=== PATIENT | female | born 1940 | race Caucasian/White ===

== ENCOUNTER 2017-12-22 21:10 | Emergency (ER) | payer MEDICARE ==
[2017-12-22 21:51] LABS: #Basophils 0.1 thou/uL (0.0-0.2); #Eosinphils 0.2 thou/uL (0.0-0.7); #Lymphocytes 2.5 thou/uL (1.20-3.40); #Monocytes 0.7 thou/uL (0.11-0.59); #Neutrophils 2.6 thou/uL (1.40-6.50); %Basophils 1.2 % (0.0-1.0); %Eosinophils 3.2 % (0.0-10.0); %Lymphocytes 41.4 % (21.0-51.0); %Monocytes 11.4 % (0.0-10.0); %Neutrophils 42.8 % (42.0-75.0); Hemoglobin 12.7 g/dL (12.0-16.0); Mean Corpuscular HGB CONC 31.6 g/dL (32.0-36.0); Mean Corpuscular Hemoglobin 26.9 pg (27.0-31.0); Mean Corpuscular Volume 85.1 fL (78.0-98.0); Mean Platelet Volume 9.9 fL (7.4-10.4); Platelet Count 179 thou/uL (130-400); RBC Distribution Width 13.7 % (11.5-14.5); Red Blood Cell (RBC) Count 4.74 mill/uL (4.20-5.40); White Blood Cell (WBC) Count 6.1 thou/uL (4.8-10.8)
[2017-12-22] MEDS ORDERED: predniSONE 20 MG TAB ONE (22:08)
[2017-12-22 22:09] LABS: ALT (SGPT) 12 U/L (8-55); AST (SGOT) 20 U/L (5-34); Alkaline Phosphatase 59 U/L (40-150); Anion Gap 12 mmol/L (10-20); BUN (Urea Nitrogen) 14 mg/dL (9.8-20.1); Bilirubin, Total 0.4 mg/dL (0.2-1.2); Calc. Creatinine Clearance 0 mL/min (70-130); Calcium 9.2 mg/dL (7.8-10.44); Carbon Dioxide 30 mmol/L (23-31); Chloride 99 mmol/L (98-107); Estimated GFR-MDRD 88; Globulin 2.8 g/dL (2.4-3.5); Glucose 96 mg/dL (83-110); Potassium 4.2 mmol/L (3.5-5.1); Protein, Total 6.8 g/dL (6.0-8.3); Sodium 137 mmol/L (136-145)
--- NOTE | 2017-12-22 22:09 | RAD ---
PORTABLE AP CHEST X-RAY 12/22/17 HISTORY: Dyspnea with onset of symptoms a few days ago. Worse tonight. COMPARISON: 06/22/16. FINDINGS: The cardiac silhouette and pulmonary vasculature are within normal limits. The lungs are hyperexpande d without mild chronic lung changes seen. No consolidation or pleural fluid is seen. Vascular calcifi cations seen in the thoracic aorta. Osteopenia is present. The interstitial opacities at each lung ba se on the prior exam have resolved. There is right convexed rotoscoliosis of the thoracolumbar spine. IMPRESSION: 1. No acute cardiopulmonary process 2. Stable hyperexpansion of the lungs with mild chronic lung changes. 3. Right convexed scoliosis thoracolumbar spine. POS: [facility]
[2017-12-22 22:13] LABS: CKMB 3.5 ng/mL (0-6.6); Troponin I Less than 0.010 ng/mL (< 0.028)
== END 2017-12-23 00:25 | disposition home or self-care (01) ==
LOC: ERS 21:10
DX: J44.1 Chronic obstructive pulmonary disease with (acute) exacerbation (principal); Z87.891 Personal history of nicotine dependence; Z79.899 Other long term (current) drug therapy
CPT/HCPCS: 71045; 80053; 82553; 83880; 84484; 85025; 93005; 94760; J7506; J7620

== ENCOUNTER 2018-03-08 10:42 | Outpatient (CLI) | payer MEDICARE ==
--- NOTE | 2018-03-08 11:52 | BD ---
BONE DENSITOMETRY USING DEXA: Date: 03/08/18 HISTORY: Postmenopausal screening for osteoporosis. FINDINGS: Lumbar Spine: BMD (g/cm2) L1 0.620 T-Score: -3.4 Z-Score: -1.0 L2 0.759 T-Score: -2.4 Z-Score: 0.2 L3 0.724 T-Score: -3.3 Z-Score: -0.5 L4 0.713 T-Score: -3.2 Z-Score: -0.3 L1-L4 0.705 T-Score: -3.1 Z-Score: -0.5 Femoral Neck: 0.474 T-Score: -3.4 Z-Score: -1.1 Total Femur: 0.551 T-Score: -3.2 Z-Score: -1.2 There has been interval reduction of 3.5% in the bone mineral density of the lumbar spine and a reduc tion of 13.8% in the bone mineral density of the proximal femur since 04/17/08. IMPRESSION: Osteoporosis. POS: [facility]
== END 2018-03-08 10:43 | disposition home or self-care (01) ==
LOC: BICMAMMO 10:42
PROVIDERS: ATTEND Family Medicine
DX: Z12.31 Encounter for screening mammogram for malignant neoplasm of breast (principal); M81.0 Age-related osteoporosis without current pathological fracture
CPT/HCPCS: 77063; 77067; 77080

== ENCOUNTER 2018-03-26 12:46 | Emergency (ER) | payer MEDICARE ==
[2018-03-26 13:19] LABS: #Lymphocytes 1.3 thou/uL (1.20-3.40); #Monocytes 0.3 thou/uL (0.11-0.59); #Neutrophils 10.6 thou/uL (1.40-6.50); %Basophils 0.4 % (0.0-1.0); %Eosinophils 0.2 % (0.0-10.0); %Lymphocytes 10.4 % (21.0-51.0); Hemoglobin 14.4 g/dL (12.0-16.0); Mean Corpuscular HGB CONC 32.1 g/dL (32.0-36.0); Mean Corpuscular Hemoglobin 27.8 pg (27.0-31.0); Mean Corpuscular Volume 86.5 fL (78.0-98.0); Mean Platelet Volume 9.1 fL (7.4-10.4); Platelet Count 236 thou/uL (130-400); RBC Distribution Width 14.3 % (11.5-14.5); Red Blood Cell (RBC) Count 5.18 mill/uL (4.20-5.40); White Blood Cell (WBC) Count 12.2 thou/uL (4.8-10.8)
--- NOTE | 2018-03-26 13:35 | RAD ---
CHEST 1 VIEW: HISTORY: Dyspnea, cough, and congestion. COMPARISON: Radiograph of 12/22/2017. FINDINGS: There is moderate dextroscoliosis of the thoracolumbar spine. There is some scarring and mass in the left lung apex. The lungs are hyperinflated. Cardiac silhouette and mediastinal contours are within normal limits. IMPRESSION: Spiculated mass-like density in the left lung apex. Followup CT of the chest is recommended. CODE T POS: [facility]
[2018-03-26 13:42] LABS: ALT (SGPT) 18 U/L (8-55); AST (SGOT) 18 U/L (5-34); Albumin 4.3 g/dL (3.4-4.8); Alkaline Phosphatase 55 U/L (40-150); Anion Gap 11 mmol/L (10-20); BUN (Urea Nitrogen) 13 mg/dL (9.8-20.1); Bilirubin, Total 0.5 mg/dL (0.2-1.2); CK (CPK) 52 U/L (29-168); Calc. Creatinine Clearance 0 mL/min (70-130); Calcium 9.5 mg/dL (7.8-10.44); Carbon Dioxide 29 mmol/L (23-31); Chloride 100 mmol/L (98-107); Estimated GFR-MDRD 88; Globulin 2.8 g/dL (2.4-3.5); Glucose 141 mg/dL (83-110); Potassium 4.2 mmol/L (3.5-5.1); Protein, Total 7.1 g/dL (6.0-8.3); Sodium 136 mmol/L (136-145)
[2018-03-26 13:45] LABS: CKMB 2.4 ng/mL (0-6.6); Troponin I Less than 0.010 ng/mL (< 0.028)
[2018-03-26] MEDS ORDERED: Ketorolac Tromethamine 30 MG/ML VIAL ONE (15:10)
== END 2018-03-26 15:55 | disposition home or self-care (01) ==
LOC: ERS 12:46
DX: J44.1 Chronic obstructive pulmonary disease with (acute) exacerbation (principal); Z87.891 Personal history of nicotine dependence; Z79.899 Other long term (current) drug therapy
CPT/HCPCS: 36415; 71045; 80053; 82550; 82553; 83880; 84484; 85025; 93005; 94640; 96374; J1885; J7620

== ENCOUNTER 2018-04-06 09:31 | Outpatient (CLI) | payer MEDICARE ==
--- NOTE | 2018-04-06 11:33 | RAD ---
FRONTAL AND LATERAL IMAGING OF THORACIC SPINE: Date: 04/06/18 COMPARISON: None. HISTORY: Mid back pain traveling up. FINDINGS: The lateral examination demonstrates no significant anterolisthesis or retrolisthesis within the thor acic spine. There is upper lumbar spine dextroscoliosis with multilevel disc space narrowing and degenerative end plate change of the upper lumbar spine to the left of midline. There is atherosclerotic calcification of the aortic arch. The thoracic pedicles appear intact on the frontal imaging. No evidence for acute thoracic spine frac ture is noted. Partially imaged degenerative change is seen within the cervical spine, including ante rolisthesis of C4 on C5 measuring approximately 4.0 mm. IMPRESSION: Multifocal degenerative change. No acute thoracic spine fracture. If there are radicular symptoms, MR I suggested. POS: [facility]
--- NOTE | 2018-04-06 12:22 | CT ---
CT OF CHEST PERFORMED WITH INTRAVENOUS CONTRAST ENHANCEMENT: HISTORY: Abnormal density seen in the left upper lobe on recent chest x-ray. COMPARISON: A CT examination of 02/06/2013. Multiple prior chest x-ray exams. FINDINGS: Lungs show severe emphysematous-type change. There is no infiltrative process. Within the left upper lobe corresponding to the chest x-ray abnormality is a slightly nodular density with either spiculation or scar. The main nodular component of this is only 7 mm in size. This is definitely a new finding as compared to the 2013 CT examination. There is no significant mediastinal or hilar adenopathy. Thoracic aorta is normal in caliber. Visualized liver parenchyma shows no focal finding. The right and left adrenal glands are within nor mal limits. Visualized portions of the kidneys are unremarkable. Review of osseous structures shows arthritic changes of the spine and scoliosis. IMPRESSION: 1. Slightly spiculated nodular density within the left upper lobe. This is either related to an are a of nodular scar or early carcinoma. It was not present on the 2013 CT examination. Further evalua tion with PET scan may be helpful. Due to the small size of the nodular component, I feel it may not be very amenable to percutaneous biopsy. 2. Severe emphysematous lung change. POS: [facility]
[2018-04-06] MEDS ORDERED: ISOVUE-370 76%-LOCM 1 ML ONE (13:30)
== END 2018-04-06 09:32 | disposition home or self-care (01) ==
LOC: BICCT 09:31
PROVIDERS: ATTEND Family Medicine
DX: M54.6 Pain in thoracic spine (principal); R91.8 Other nonspecific abnormal finding of lung field; M47.814 Spondylosis without myelopathy or radiculopathy, thoracic region; J98.4 Other disorders of lung
CPT/HCPCS: 71260; 72072

== ENCOUNTER 2018-06-10 16:52 | Emergency (ER) | payer MEDICARE ==
[2018-06-10 17:42] LABS: #Basophils 0.1 thou/uL (0.0-0.2); #Lymphocytes 1.6 thou/uL (1.20-3.40); #Monocytes 0.7 thou/uL (0.11-0.59); #Neutrophils 3.9 thou/uL (1.40-6.50); %Eosinophils 0.5 % (0.0-10.0); %Lymphocytes 25.3 % (21.0-51.0); %Monocytes 11.5 % (0.0-10.0); %Neutrophils 61.7 % (42.0-75.0); Hemoglobin 13.4 g/dL (12.0-16.0); Mean Corpuscular HGB CONC 31.9 g/dL (32.0-36.0); Mean Corpuscular Hemoglobin 28.2 pg (27.0-31.0); Mean Corpuscular Volume 88.5 fL (78.0-98.0); Mean Platelet Volume 9.9 fL (7.4-10.4); Platelet Count 193 thou/uL (130-400); RBC Distribution Width 13.3 % (11.5-14.5); Red Blood Cell (RBC) Count 4.73 mill/uL (4.20-5.40); White Blood Cell (WBC) Count 6.3 thou/uL (4.8-10.8)
[2018-06-10 18:03] LABS: ALT (SGPT) 13 U/L (8-55); AST (SGOT) 22 U/L (5-34); Albumin 4.2 g/dL (3.4-4.8); Alkaline Phosphatase 65 U/L (40-150); Anion Gap 14 mmol/L (10-20); BUN (Urea Nitrogen) 10 mg/dL (9.8-20.1); Bilirubin, Total 0.3 mg/dL (0.2-1.2); CK (CPK) 95 U/L (29-168); Calc. Creatinine Clearance 0 mL/min (70-130); Calcium 9.2 mg/dL (7.8-10.44); Carbon Dioxide 27 mmol/L (23-31); Chloride 103 mmol/L (98-107); Estimated GFR-MDRD Greater than 90; Globulin 2.6 g/dL (2.4-3.5); Glucose 118 mg/dL (83-110); Potassium 4.3 mmol/L (3.5-5.1); Protein, Total 6.8 g/dL (6.0-8.3); Sodium 140 mmol/L (136-145)
--- NOTE | 2018-06-10 18:31 | RAD ---
CHEST ONE VIEW: History: Shortness of breath. Comparison: 03-26-18 FINDINGS: Lungs are hyperinflated. Reversed S-shaped scoliosis thoracolumbar spine. No focal consolidation, pne umothorax, or effusion. Spiculated nodule in the left upper lobe is similar and may reflect scarring. IMPRESSION: 1. Obstructive pulmonary disease. 2. Spiculated nodule left upper lobe suggestive of scar, though follow up CT recommended in two month s. POS: [facility]
[2018-06-10] MEDS ORDERED: methylPREDNISolone Sod Succ/PF 125 MG/2 ML VIAL ONE (19:11)
== END 2018-06-10 19:40 | disposition home or self-care (01) ==
LOC: ERS 16:52
DX: J44.1 Chronic obstructive pulmonary disease with (acute) exacerbation (principal); Z87.891 Personal history of nicotine dependence; Z79.899 Other long term (current) drug therapy
CPT/HCPCS: 71045; 80053; 82550; 83880; 84484; 85025; 93005; 94640; 94760; C1776; 96374; J2930; J7620

== ENCOUNTER 2018-06-11 19:17 | Emergency (ER) | payer MEDICARE ==
[2018-06-11] MEDS ORDERED: Ketorolac Tromethamine 60 MG/2 ML VIAL ONE (22:28)
[2018-06-11] MEDS ORDERED: Lorazepam 2 MG/ML VIAL ONE (22:28)
== END 2018-06-11 22:55 | disposition home or self-care (01) ==
LOC: ERS 19:17
DX: S16.1XXA Strain of muscle, fascia and tendon at neck level, initial encounter (principal); J44.9 Chronic obstructive pulmonary disease, unspecified; Z87.891 Personal history of nicotine dependence; Z79.51 Long term (current) use of inhaled steroids; Z79.899 Other long term (current) drug therapy; X58.XXXA Exposure to other specified factors, initial encounter
CPT/HCPCS: 96372; J1885; J2060

== ENCOUNTER 2018-06-21 13:26 | Outpatient (CLI) | payer MEDICARE ==
[2018-06-21 14:59] LABS: Analyzer IN Cardio OR; Base Excess (BEa) 6.8 mEq/L (-2.0 to +3.0); CO2 Tension 47.9 mmHg (35.0-45.0); Calcium, Ionized 1.16 mmol/L (1.12-1.30); Carboxyhemoglobin (COHb) 0.3 gm% (0.0-3.0); Hemoglobin (Hb) 13.9 g/dL (12.0-16.0); O2 Tension (PaO2) 63.6 mmHg (> 70.0); Potassium - ABG Lab 4.19 mmol/L (3.70-5.30); pH, Arterial 7.44 (7.35-7.45)
[2018-06-21 15:02] LABS: ALV-art Gradient 26.255 (0-20)
== END 2018-06-21 13:27 | disposition home or self-care (01) ==
LOC: CP 13:26
PROVIDERS: ATTEND Internal Medicine Critical Care Medicine
DX: J44.9 Chronic obstructive pulmonary disease, unspecified (principal)
CPT/HCPCS: 82805

== ENCOUNTER 2018-07-13 15:07 | Outpatient (CLI) | payer MEDICARE ==
--- NOTE | 2018-07-13 16:05 | RAD ---
LUMBAR SPINE FOUR VIEWS: HISTORY: Lumbar spondylosis. FINDINGS: Moderate to severe dextroscoliosis of the upper lumbar vertebral column. Multilevel disk osteophytos is and facet arthrosis. No significant abnormal translation between flexion and extension. Diffuse bony demineralization. IMPRESSION: 1. Dextroscoliosis, upper lumbar vertebral column. 2. Spondylosis with bony demineralization. 3. No abnormal translation between flexion and extension. POS: [facility]
== END 2018-07-13 15:08 | disposition home or self-care (01) ==
LOC: BICRAD 15:07
PROVIDERS: ATTEND Nurse Practitioner Family
DX: M47.816 Spondylosis without myelopathy or radiculopathy, lumbar region (principal); M41.9 Scoliosis, unspecified; M81.0 Age-related osteoporosis without current pathological fracture
CPT/HCPCS: 72110

== ENCOUNTER 2018-08-03 14:47 | Inpatient (IN) | payer MEDICARE ==
[2018-08-03] MEDS ORDERED: Midazolam HCl 2 mg/2 ml Vial ONE (14:55)
[2018-08-03] MEDS ORDERED: fentaNYL Citrate/PF 2,000 MCG in Sodium Chloride 0.9% 60 ML IV SCH (14:55)
[2018-08-03] MEDS ORDERED: Propofol 1,000 MG/100 ML VIAL IV ONE (14:55)
[2018-08-03 15:10] LABS: Bilirubin Negative (Negative); Blood, Urine Negative (Negative); Clarity CLEAR (Clear); Glucose, Urine (Dipstick) Negative (Negative); Leukocyte Negative (Negative); Nitrite Negative (Negative); Protein, Urine (Dipstick) Negative (Neg-Trace); Urobilinogen 0.2 mg/dL (0.2-1.0); pH, Urine 5.5 (5.0-9.0)
[2018-08-03 15:14] LABS: Actual Bicarbonate (HCO3a) 25.8 mEq/L (22-28); Analyzer IN Cardio ER; Base Excess (BEa) -0.1 mEq/L (-2.0 to +3.0); CO2 Tension 47.1 mmHg (35.0-45.0); Carboxyhemoglobin (COHb) 0.2 gm% (0.0-3.0); Hemoglobin (Hb) 12.5 g/dL (12.0-16.0); Potassium - ABG Lab 3.62 mmol/L (3.70-5.30); pH, Arterial 7.36 (7.35-7.45)
[2018-08-03 15:15] LABS: ALV-art Gradient -41.975 (0-20); Puncture Site RRA
--- NOTE | 2018-08-03 15:36 | RAD ---
SINGLE VIEW CHEST: Date: 08/03/18 COMPARISON: 06/10/18. HISTORY: Respiratory distress. Intubated. FINDINGS: Single view of the chest shows normal sized cardiomediastinal silhouette. There is an endotracheal tu be with its tip at the lower border of the clavicles. NG tube courses off the inferior aspect of the film. Right subclavian central venous catheter is seen with its tip in the superior vena cava. No pne umothorax is seen. Hyperexpansion of lungs may be secondary to COPD. No evidence of consolidation, ma ss, or pleural effusion. IMPRESSION: Appropriate position of lines and tubes. POS: [facility]
[2018-08-03 15:38] LABS: #Lymphocytes 2.7 thou/uL (1.20-3.40); #Monocytes 0.6 thou/uL (0.11-0.59); #Neutrophils 4.2 thou/uL (1.40-6.50); %Basophils 0.1 % (0.0-1.0); %Eosinophils 0.5 % (0.0-10.0); %Lymphocytes 36.4 % (21.0-51.0); %Monocytes 7.5 % (0.0-10.0); %Neutrophils 55.6 % (42.0-75.0); Mean Corpuscular HGB CONC 31.3 g/dL (32.0-36.0); Mean Corpuscular Hemoglobin 27.7 pg (27.0-31.0); Mean Corpuscular Volume 88.5 fL (78.0-98.0); Mean Platelet Volume 9.4 fL (7.4-10.4); Platelet Count 180 thou/uL (130-400); Red Blood Cell (RBC) Count 3.97 mill/uL (4.20-5.40); White Blood Cell (WBC) Count 7.5 thou/uL (4.8-10.8)
[2018-08-03 15:56] LABS: ALT (SGPT) 10 U/L (8-55); AST (SGOT) 15 U/L (5-34); Albumin 3.1 g/dL (3.4-4.8); Alkaline Phosphatase 44 U/L (40-150); Anion Gap 6 mmol/L (10-20); BUN (Urea Nitrogen) 11 mg/dL (9.8-20.1); Bilirubin, Total 0.3 mg/dL (0.2-1.2); CK (CPK) 50 U/L (29-168); Calc. Creatinine Clearance 0 mL/min (70-130); Carbon Dioxide 29 mmol/L (23-31); Chloride 103 mmol/L (98-107); Estimated GFR-MDRD Greater than 90; Globulin 1.7 g/dL (2.4-3.5); Glucose 110 mg/dL (83-110); Potassium 3.4 mmol/L (3.5-5.1); Protein, Total 4.8 g/dL (6.0-8.3); Sodium 135 mmol/L (136-145)
[2018-08-03] MEDS ORDERED: Norepinephrine 8 MG/0.9% NS 250 ML ONE (16:27)
[2018-08-03] MEDS ORDERED: Propofol BOLUS 1,000 MG/100 ML VIAL IV PRN ×2 (18:52→18:54)
[2018-08-03] MEDS ORDERED: Ondansetron PF 4 MG/2 ML Vial IVP PRN ×2 (18:53→19:57)
[2018-08-03] MEDS ORDERED: Ondansetron ODT 4 MG TAB SL PRN (18:53)
[2018-08-03] MEDS ORDERED: Sodium Chloride 0.9% 1,000 ML IV SCH ×2 (18:53→19:45)
[2018-08-03] MEDS ORDERED: Lorazepam 2 MG/ML VIAL SLOW IVP PRN (18:54)
[2018-08-03] MEDS ORDERED: DISCONTINUE PREVIOUS NARCOTIC PAIN MEDICATIONS AND BENZODIAZEPINES FS SCH (18:54)
[2018-08-03] MEDS ORDERED: Fentanyl BOLUS 250 ML IVPB PRN (18:54)
[2018-08-03] MEDS ORDERED: Morphine 2 MG/ML SYRINGE SLOW IVP PRN (18:54)
[2018-08-03] MEDS ORDERED: Propofol 1,000 MG/100 ML VIAL IV PRN (18:54)
[2018-08-03] MEDS ORDERED: Ondansetron ODT 4 MG TAB PO PRN (19:57)
[2018-08-03] MEDS ORDERED: Acetaminophen 650 MG Suppository PR PRN (19:57)
[2018-08-03] MEDS ORDERED: CCU Electrolyte Replacement 1 EACH FS ONE (20:11)
[2018-08-03] MEDS ORDERED: Potassium Phosphate 15 MMOL in Sodium Chloride 0.9% 250 ML 250 ML IV PRN (20:13)
[2018-08-03] MEDS ORDERED: CCU ELECTROLYTE REPLACEMENT PROTOCOL FS PRN (20:13)
[2018-08-03] MEDS ORDERED: Magnesium 2 GM/50 ML 2 GM in Premix Bag 1 BAG IVPB PRN (20:13)
[2018-08-03] MEDS ORDERED: Potassium Chloride 40 MEQ in Premix Bag 1 BAG IVPB PRN (20:13)
[2018-08-03] MEDS ORDERED: Potassium Phosphate 12 MMOL in Sodium Chloride 0.9% 250 ML 250 ML IV PRN (20:13)
[2018-08-03] MEDS ORDERED: Magnesium Oxide 400 MG TAB PO PRN ×2 (20:13)
[2018-08-03] MEDS ORDERED: PHOS-NAK 1 PKT PACK PO PRN ×2 (20:13)
[2018-08-03] MEDS ORDERED: Potassium Chloride 20 MEQ TAB PO PRN (20:13)
[2018-08-03] MEDS ORDERED: Potassium Phosphate 9 MMOL in Sodium Chloride 0.9% 100 ML IVPB PRN (20:13)
[2018-08-03] MEDS ORDERED: Potassium Chloride 40 MEQ in Sodium Chloride 0.9% 250 ML 250 ML IVPB PRN (20:13)
[2018-08-03] MEDS: Famotidine/PF 20 mg/2ml Vial SLOW IVP SCH (21:11)
[2018-08-03] MEDS: cefTRIAXone\\ROCEPHIN 2 GM in Sodium Chloride 0.9% 100 ML IVPB SCH (21:11)
[2018-08-03] MEDS: Sodium Chloride 0.9% 1,000 ML IV SCH (21:57)
--- NOTE | 2018-08-03 22:57 | HP ---
PRIMARY CARE PROVIDER: Dr. Talita Waterman. CHIEF COMPLAINT: Shortness of breath. HISTORY OF PRESENT ILLNESS: This is a 77-year-old female, who presents to [facility] Emergency Department in transfer with EMS personnel after complaining of increasing shortness of breath in the last 48 hours. The history is obtained after discussions with the ER attending as well as the patient's 3 daughters who are at the bedside. The patient currently on mechanical ventilation and unable to provide any history. The patient with known history of chronic obstructive pulmonary disease, on chronic oxygen supplementation at 2 L/minute by nasal cannula. The patient had complained of increasing fatigue and shortness of breath per the daughter's report with quick fatigability with doing home chores and small tasks at home. The daughters report that the patient does live independently but are nearby and a sister with shopping and medications. The daughters report the patient has never needed intubation or mechanical ventilation in the past. The daughters report no specific recent illness or change to her chronic medication regimen, but do states she was recently on steroid tapering by her primary care provider as early as mid June 2018. No specific history of recent fall, travel history, or exposure. In the emergency room, the patient was intubated per EMS personnel, however, was hypotensive initially and placed on Levophed infusion as well as given IV fluids. Chest imaging showed no acute infiltrate and the patient was treated for respiratory failure with mechanical ventilation and a suspected COPD exacerbation. PAST MEDICAL HISTORY: 1. Chronic obstructive pulmonary disease. 2. Chronic hypoxic respiratory failure, on oxygen supplementation at 2 L/minute by nasal cannula. 3. Remote tobacco use. PAST SURGICAL HISTORY: Status post hysterectomy. CURRENT MEDICATIONS: 1. ProAir HFA 2 puffs inhaled q.4 hours p.r.n. 2. Azithromycin 250 mg p.o. daily. 3. Ipratropium one inhalation nebulized q.4 hours p.r.n. ALLERGIES: TO LEVAQUIN. FAMILY HISTORY: Positive for diabetes mellitus type 2. SOCIAL HISTORY: The patient is , residing independently. Accompanied by her 3 daughters. Former tobacco use, quitting approximately 15 years prior to this evaluation. REVIEW OF SYSTEMS: Unobtainable as the patient on current mechanical ventilation. PHYSICAL EXAMINATION: VITAL SIGNS: On admission, blood pressure 152/79, pulse 98, respiratory rate 20, temperature 96.4 degrees Fahrenheit, O2 saturation is 100% on mechanical ventilation. GENERAL APPEARANCE: This is a 77-year-old female, on current mechanical ventilation sedate, in no acute distress. HEENT: Pupils are equal, round, reactive to light and accommodation. Extraocular muscles are intact. No scleral icterus. No conjunctival injection. Nares patent. OP with ET tube in place. Orogastric tube in place. NECK: Supple. No cervical adenopathy. No thyromegaly. No carotid bruits. No JVD noted. CHEST: Diminished breath sounds in the bases bilaterally. CARDIOVASCULAR: S1 and S2 with tachycardia. ABDOMEN: Flat, soft, nontender, and nondistended. Bowel sounds are positive in all 4 quadrants. There is no palpable mass. No rebound or guarding appreciated. EXTREMITIES: Warm and dry with fair turgor. No clubbing, cyanosis, or asymmetric edema appreciated. Pulses palpable distally at the dorsalis pedis, posterior tibial, and popliteal arteries bilaterally. Capillary refill less than 2 seconds. NEUROLOGIC: Currently sedate on mechanical ventilation with propofol. PERTINENT LABORATORY AND X-RAY FINDINGS: Sodium 135, potassium 3.4, chloride 103, CO2 of 29, BUN 11, creatinine 0.45, glucose 110, lactic acid level 0.7, calcium 8.0. LFTs within normal limits. Troponin I negative x1. BNP 22.5. Albumin 3.1. CBC showed a white blood cell count of 7.5, hemoglobin 11, hematocrit 35, platelet count 180, with normal differential. ABG dated 08/03/2018 at 1507 hours showed a pH 7.36, pCO2 of 47.1, pO2 of 197, bicarb 25.8, O2 saturation 99% on 30% FiO2. Urinalysis negative. Portable chest x-ray dated 08/03/2018 showed endotracheal tube with the tip of the lower borders of the clavicles. Orogastric tube noted. Right subclavian central venous catheter in place. EKG dated 08/03/2018 by my interpretation shows sinus mechanism with heart rates in the 70s. Normal R-wave progression noted in the precordial leads. Normal axis. No acute ST-T wave changes appreciated. ASSESSMENT AND PLAN: 1. Acute on chronic hypoxic respiratory failure. The patient will be admitted to the Critical Care unit. Suspect secondarily to #2. We will continue management as outlined in #2. Continue mechanical ventilation with SIMV and consult Pulmonary/Critical Care Service. 2. Acute chronic obstructive pulmonary disease exacerbation. Suspected presentation. We will continue mechanical ventilation with SIMV, titrating to clinical response. Current FiO2 of 30%. Repeat portable chest x-ray and ABG in the a.m. Continue Solu-Medrol 40 mg IV q.6 hours with additional Rocephin 2 g IV q.24 hours. Add DuoNeb q.4 hours. 3. Hypokalemia. We will add CCU electrolyte replacement protocol. Serial potassium monitoring. 4. Normocytic anemia. Questionable chronic versus subacute. We will repeat CBC in the a.m. No current evidence to suggest acute blood loss. MCV 89. 5. Prophylaxis. SCDs while in bed. Pepcid 20 mg IV q.12 hours. CCU electrolyte replacement protocol. Ventilator sedation protocol. 6. Code status is full. Surrogate medical decision maker is the patient's daughters. Job ID: [id number]
[2018-08-03] MEDS: methylPREDNISolone Sod Succ 40 MG VIAL IVP SCH (23:49)
[2018-08-04] MEDS: fentaNYL Citrate/PF 2,000 MCG in Sodium Chloride 0.9% 60 ML IV SCH (05:05)
[2018-08-04] MEDS: Sodium Chloride 0.9% 1,000 ML IV SCH ×2 (05:10→16:15)
[2018-08-04] MEDS: methylPREDNISolone Sod Succ 40 MG VIAL IVP SCH ×4 (05:26→23:50)
[2018-08-04 07:04] LABS: ALT (SGPT) 15 U/L (8-55); AST (SGOT) 15 U/L (5-34); Albumin 3.1 g/dL (3.4-4.8); Alkaline Phosphatase 44 U/L (40-150); Anion Gap 12 mmol/L (10-20); BUN (Urea Nitrogen) 14 mg/dL (9.8-20.1); Bilirubin, Total 0.4 mg/dL (0.2-1.2); Calc. Creatinine Clearance 59 mL/min (70-130); Carbon Dioxide 19 mmol/L (23-31); Chloride 107 mmol/L (98-107); Estimated GFR-MDRD Greater than 90; Globulin 1.9 g/dL (2.4-3.5); Glucose 131 mg/dL (83-110); Potassium 3.9 mmol/L (3.5-5.1); Sodium 134 mmol/L (136-145)
[2018-08-04 07:06] LABS: Mean Corpuscular HGB CONC 31.6 g/dL (32.0-36.0); Mean Corpuscular Volume 88.4 fL (78.0-98.0); Mean Platelet Volume 9.2 fL (7.4-10.4); Platelet Count 168 thou/uL (130-400); RBC Distribution Width 13.2 % (11.5-14.5); Red Blood Cell (RBC) Count 3.94 mill/uL (4.20-5.40); White Blood Cell (WBC) Count 7.6 thou/uL (4.8-10.8)
[2018-08-04 07:19] LABS: Actual Bicarbonate (HCO3a) 20.7 mEq/L (22-28); Base Excess (BEa) -4.3 mEq/L (-2.0 to +3.0); CO2 Tension 37.7 mmHg (35.0-45.0); Calcium, Ionized 1.19 mmol/L (1.12-1.30); Carboxyhemoglobin (COHb) 0.9 gm% (0.0-3.0); Hemoglobin (Hb) 11.9 g/dL (12.0-16.0); O2 Tension (PaO2) 70.7 mmHg (> 70.0); Potassium - ABG Lab 3.95 mmol/L (3.70-5.30); Puncture Site RRA; pH, Arterial 7.36 (7.35-7.45)
[2018-08-04 07:20] LABS: ALV-art Gradient 96.075 (0-20)
[2018-08-04 07:33] LABS: Lymphocytes 5 % (21-51); MDiff Complete? YES; Monocytes 4 % (0-10); Neutrophil 85 % (42-75); Platelet Morphology Comment Appears Adequate; Reactive Lymphocytes 6 % (0-10)
[2018-08-04] MEDS: Famotidine/PF 20 mg/2ml Vial SLOW IVP SCH ×2 (10:00→20:42)
--- NOTE | 2018-08-04 13:44 | PDOC.PN ---
- Subjective Encounter Start Date: 08/04/18 Encounter Start Time: 13:44 Subjective: Admitted with worsening SOB associated with weakness. -: Intubated in the ER. Had hypotension requiring levophed. -: currently off levophed. - Objective Resuscitation Status - Order Detail: 08/03/18 19:46 Resuscitation Status Routine Resuscitation Status: FULL: Full Resuscitation Vital Signs & Weight: Vital Signs (12 hours) Temp Pulse Resp BP Pulse Ox 08/04/18 12:42 78 08/04/18 10:44 86 101/57 L 08/04/18 10:00 16 08/04/18 09:33 96 08/04/18 08:00 97.6 F 16 100 08/04/18 07:54 77 108/59 L 08/04/18 06:00 16 08/04/18 04:00 99.7 F H 26 H 08/04/18 02:09 81 108/52 L 08/04/18 02:00 16 Weight Admit Weight 87 lb 11.84 oz Weight 88 lb 6.5 oz Most Recent Monitor Data Heart Rate from ECG 76 NIBP 112/63 NIBP BP-Mean 79 Respiration from ECG 16 SpO2 100 I&O: 08/03/18 08/04/18 08/05/18 06:59 06:59 06:59 Intake Total 3019.7 Output Total 550 80 Balance 2469.7 -80 Result Diagrams: 08/04/18 06:26 08/04/18 06:26 Phys Exam - Physical Examination sedated elderly female HEENT: moist MMs OG and ET tubes in place. Neck: supple ventilator transmitted sound noted. Cardiovascular: RRR, no significant murmur Gastrointestinal: soft, no distention, positive bowel sounds Musculoskeletal: no edema sedated. Dx/Plan (1) Acute on chronic respiratory failure with hypoxemia Code(s): J96.21 - ACUTE AND CHRONIC RESPIRATORY FAILURE WITH HYPOXIA Status: Acute (2) Endotracheally intubated Code(s): Z97.8 - PRESENCE OF OTHER SPECIFIED DEVICES Status: Acute (3) Hypokalemia Code(s): E87.6 - HYPOKALEMIA Status: Acute (4) Hypotension Status: Acute - Plan Continue sedation and mechanical ventialation as per Critical care -: Continue steroid and antimicrobial. -: Continue IVF and other supportive care. -: Monitor electrolytes and replete as needed -: monitor I/O * .
[2018-08-04] MEDS ORDERED: Azithromycin 500 MG in Sodium Chloride 0.9% 250 ML 250 ML IVPB SCH (14:00)
--- NOTE | 2018-08-04 14:18 | CON ---
DATE OF CONSULTATION: 08/03/2018 HISTORY OF PRESENT ILLNESS: Ms. Paredes is a 77-year-old female, who has been intubated for what is felt to be a COPD exacerbation. She is intubated with a 6-0 tube. She was sedated when I evaluated her on arrival in the ICU. She apparently had shortness of breath for 2 days prior to admission. She has been followed by Dr. Bravo. She is on oxygen at home and has a nebulizer apparently reviewing old records. PAST MEDICAL HISTORY: Remarkable for hysterectomy and COPD. FAMILY HISTORY: Negative for lung disease in early age. MEDICATIONS: Prior to admission, 1. Z-Adin. 2. ProAir. 3. Nebulizer. ALLERGIES: SHE REPORTS QUINOLONE INTOLERANCE. SOCIAL HISTORY: She lives alone. She is a . She has three daughters. Quit smoking 15 years ago. REVIEW OF SYSTEMS: Not obtainable. PHYSICAL EXAMINATION: VITAL SIGNS: Blood pressure is 119/61, heart rate is in the 60s, respiratory rates in the teens. HEENT: Pupils are reactive. She has temporal muscle wasting. NECK: Supple. She has no lymphadenopathy. LUNGS: Distant. She has prolonged expiratory phase. HEART: Regular rhythm. ABDOMEN: Soft and nontender. EXTREMITIES: Without clubbing, cyanosis, or edema. She weighs 88 pounds. DIAGNOSTIC DATA: Chest radiograph shows no infiltrates. LABORATORY DATA: White count 7.5, hemoglobin 11.0, platelets 180,000. Sodium 135, potassium 3.4, chloride 103, bicarb 29, BUN 11, and creatinine 0.45. PH 7.36, CO2 47, PO2 197. IMPRESSION: 1. Acute respiratory failure on top of chronic respiratory failure with hypoxia. 2. Advanced chronic obstructive pulmonary disease with an exacerbation. 3. Probable coexistent bronchitis. 4. Status post intubation with a very small endotracheal tube. Hopefully, with a couple days of ventilation, we can get her extubated. I will be happy to follow the other physicians caring for her. CRITICAL CARE TIME: 30 minutes. Job ID: [id number] MTDD
--- NOTE | 2018-08-04 15:19 | PRG ---
DATE OF SERVICE: 08/04/2018 SUBJECTIVE: Reggie awakens and moves all extremities. Her ventilatory rate was decreased. She has about 4 second exhale time today. OBJECTIVE: VITAL SIGNS: Heart rate 86, blood pressure 101/57, respiratory rate in the teens. LUNGS: Distant faint wheezes. HEART: Regular rhythm. ABDOMEN: Soft, nontender. EXTREMITIES: Without edema. LABORATORY DATA: White count 7.6, hemoglobin 11.0, platelets 158. Sodium 134, potassium 3.9, chloride 107, bicarb 19, BUN 14, creatinine 0.49. PH 7.36, CO2 of 37, PO2 of 70. IMPRESSION: Respiratory failure associated with chronic obstructive pulmonary disease exacerbation, bronchitis, deconditioning. She has 6.0 endotracheal tube in. Probably, we will have to decrease her ventilatory support to rate of 6 or 8 and ventilator with pressure support and just extubate her and see how she does. She did not have stridor, but this is the field to place by the manager van. Hopefully, we can consider weaning and extubation tomorrow and perhaps even noninvasive ventilatory support. She has no recollection of yesterday. I met with her daughter and answered all of her questions. CRITICAL CARE TIME: 30 minutes. Job ID: [id number] MTDD
[2018-08-04] MEDS: cefTRIAXone\\ROCEPHIN 2 GM in Sodium Chloride 0.9% 100 ML IVPB SCH (20:42)
[2018-08-05] MEDS: Sodium Chloride 0.9% 1,000 ML IV SCH ×2 (02:31→11:50)
[2018-08-05 05:40] LABS: Anion Gap 8 mmol/L (10-20); BUN (Urea Nitrogen) 20 mg/dL (9.8-20.1); Calc. Creatinine Clearance 61 mL/min (70-130); Calcium 6.9 mg/dL (7.8-10.44); Carbon Dioxide 22 mmol/L (23-31); Chloride 112 mmol/L (98-107); Estimated GFR-MDRD Greater than 90; Glucose 130 mg/dL (83-110); Magnesium 2.3 mg/dL (1.6-2.6); Potassium 5.1 mmol/L (3.5-5.1); Sodium 137 mmol/L (136-145)
[2018-08-05 06:00] LABS: #Lymphocytes 0.6 thou/uL (1.20-3.40); #Monocytes 0.2 thou/uL (0.11-0.59); #Neutrophils 5.2 thou/uL (1.40-6.50); %Eosinophils 0.1 % (0.0-10.0); %Lymphocytes 10.4 % (21.0-51.0); %Monocytes 2.6 % (0.0-10.0); %Neutrophils 86.8 % (42.0-75.0); Elliptocytes SLIGHT = 2-5 cells (100X) (0-1/hpf); Hemoglobin 9.9 g/dL (12.0-16.0); Hypochromia SLIGHT = 6-15 cells (100X) (0-5/hpf); MDiff Complete? YES; Mean Corpuscular HGB CONC 32.9 g/dL (32.0-36.0); Mean Corpuscular Hemoglobin 28.7 pg (27.0-31.0); Mean Corpuscular Volume 87.4 fL (78.0-98.0); Mean Platelet Volume 10.3 fL (7.4-10.4); Platelet Count 113 thou/uL (130-400); Platelet Morphology Comment Appears Decreased; RBC Distribution Width 13.5 % (11.5-14.5); Red Blood Cell (RBC) Count 3.46 mill/uL (4.20-5.40)
[2018-08-05] MEDS: methylPREDNISolone Sod Succ 40 MG VIAL IVP SCH ×3 (06:05→18:57)
[2018-08-05 06:48] LABS: Actual Bicarbonate (HCO3a) 23.5 mEq/L (22-28); Base Excess (BEa) -1.8 mEq/L (-2.0 to +3.0); Calcium, Ionized 1.23 mmol/L (1.12-1.30); Carboxyhemoglobin (COHb) 0.9 gm% (0.0-3.0); Hemoglobin (Hb) 11.6 g/dL (12.0-16.0); O2 Tension (PaO2) 80.4 mmHg (> 70.0); Potassium - ABG Lab 3.98 mmol/L (3.70-5.30); pH, Arterial 7.37 (7.35-7.45)
[2018-08-05 06:49] LABS: Puncture Site RRA
[2018-08-05] MEDS: Famotidine/PF 20 mg/2ml Vial SLOW IVP SCH ×2 (09:11→21:00)
--- NOTE | 2018-08-05 11:56 | PRG ---
DATE OF SERVICE: 08/05/2018 SUBJECTIVE: Ms. Paredes is awake and alert. She moves all her extremities. She has about a 4-second exhale time. PEEP of 5. She appears comfortable. Her minute volume 6.8 L/minute at this time. She denies being short of breath. OBJECTIVE: VITAL SIGNS: Heart rate 69, respiratory rates in the teens, oximetry is 100%, and blood pressure 135/73. LUNGS: Remarkable for distant breath sounds. No audible wheezes. HEART: Regular rhythm. ABDOMEN: Soft and nontender. EXTREMITIES: Without clubbing, cyanosis, or edema. NEURO: Grossly nonfocal. LABORATORY DATA: White count 6, hemoglobin 9.9, and platelets 113,000. Sodium 137, potassium 5.1, chloride 112, bicarb 22, BUN 20, and creatinine 0.47. A pH of 7.37, CO2 of 42, and pO2 of 80. IMPRESSION AND PLAN: Respiratory failure associated with chronic obstructive pulmonary disease exacerbation, clinically improved. We will decrease her ventilatory support to the current minimum and then see if she is a candidate for extubation in the morning. Dr. Bravo will be back, who is familiar with her. I suspect she will wean in the morning. CRITICAL CARE TIME: 30 minutes. Job ID: [id number] MTDD
--- NOTE | 2018-08-05 13:47 | PDOC.PN ---
- Subjective Encounter Start Date: 08/05/18 Encounter Start Time: 13:46 Subjective: Still intubated. -: No new problem. - Objective Resuscitation Status - Order Detail: 08/03/18 19:46 Resuscitation Status Routine Resuscitation Status: FULL: Full Resuscitation Vital Signs & Weight: Vital Signs (12 hours) Temp Pulse Resp BP Pulse Ox 08/05/18 13:29 86 08/05/18 12:00 99.2 F 8 L 08/05/18 11:07 74 102/59 L 08/05/18 10:00 13 08/05/18 09:31 69 08/05/18 08:00 99.1 F 10 L 100 08/05/18 07:27 78 128/70 08/05/18 06:00 10 L 08/05/18 04:00 99.3 F 10 L 08/05/18 03:21 74 08/05/18 02:00 10 L Weight Admit Weight 87 lb 11.84 oz Weight 95 lb 3.835 oz Most Recent Monitor Data Heart Rate from ECG 80 NIBP 118/67 NIBP BP-Mean 84 Respiration from ECG 6 SpO2 100 I&O: 08/04/18 08/05/18 08/06/18 06:59 06:59 06:59 Intake Total 3019.7 2642.3 30 Output Total 550 565 125 Balance 2469.7 2077.3 -95 Result Diagrams: 08/05/18 04:24 08/05/18 04:24 Phys Exam - Physical Examination Sedated HEENT: moist MMs ET tube in place connvcted to vent Neck: supple Ventilator transmitted sound with prolonged expiration Cardiovascular: RRR Gastrointestinal: soft, no distention, positive bowel sounds edema of the hands noted sedated Dx/Plan (1) Acute on chronic respiratory failure with hypoxemia Code(s): J96.21 - ACUTE AND CHRONIC RESPIRATORY FAILURE WITH HYPOXIA Status: Acute (2) Endotracheally intubated Code(s): Z97.8 - PRESENCE OF OTHER SPECIFIED DEVICES Status: Acute (3) Hypokalemia Code(s): E87.6 - HYPOKALEMIA Status: Acute Comment: Repleted. (4) Hypotension Status: Acute Comment: Resolved. Off pressors (5) COPD exacerbation Code(s): J44.1 - CHRONIC OBSTRUCTIVE PULMONARY DISEASE W (ACUTE) EXACERBATION Status: Acute - Plan Continue antibiotics, Steroid, bronchodilators and ventilators support -: Sedatives to continue as needed -: extubation contemplated tomorrow. -: Get repeat CXR, CBC and CMP in the am. -: Substitute NS with LR and decreased rate to 75. * .
[2018-08-05] MEDS: Lactated Ringer's 1,000 ML IV SCH (14:36)
[2018-08-05] MEDS: fentaNYL Citrate/PF 2,000 MCG in Sodium Chloride 0.9% 60 ML IV SCH (15:38)
[2018-08-05] MEDS: cefTRIAXone\\ROCEPHIN 2 GM in Sodium Chloride 0.9% 100 ML IVPB SCH (21:00)
[2018-08-06] MEDS: methylPREDNISolone Sod Succ 40 MG VIAL IVP SCH ×5 (00:30→20:24)
[2018-08-06] MEDS: Lactated Ringer's 1,000 ML IV SCH (03:45)
[2018-08-06 06:09] LABS: #Lymphocytes 0.5 thou/uL (1.20-3.40); #Monocytes 0.3 thou/uL (0.11-0.59); #Neutrophils 6.7 thou/uL (1.40-6.50); %Basophils 0.2 % (0.0-1.0); %Eosinophils 0.1 % (0.0-10.0); %Monocytes 4.2 % (0.0-10.0); %Neutrophils 89.4 % (42.0-75.0); Mean Corpuscular HGB CONC 31.4 g/dL (32.0-36.0); Mean Corpuscular Hemoglobin 27.8 pg (27.0-31.0); Mean Corpuscular Volume 88.4 fL (78.0-98.0); Platelet Count 154 thou/uL (130-400); RBC Distribution Width 13.3 % (11.5-14.5); Red Blood Cell (RBC) Count 4.33 mill/uL (4.20-5.40); White Blood Cell (WBC) Count 7.5 thou/uL (4.8-10.8)
[2018-08-06 06:37] LABS: ALT (SGPT) 12 U/L (8-55); AST (SGOT) 13 U/L (5-34); Albumin 3.1 g/dL (3.4-4.8); Alkaline Phosphatase 42 U/L (40-150); Anion Gap 9 mmol/L (10-20); BUN (Urea Nitrogen) 23 mg/dL (9.8-20.1); Bilirubin, Total 0.3 mg/dL (0.2-1.2); Calc. Creatinine Clearance 60 mL/min (70-130); Calcium 8.2 mg/dL (7.8-10.44); Carbon Dioxide 26 mmol/L (23-31); Chloride 106 mmol/L (98-107); Estimated GFR-MDRD Greater than 90; Glucose 123 mg/dL (83-110); Potassium 3.9 mmol/L (3.5-5.1); Protein, Total 5.1 g/dL (6.0-8.3); Sodium 137 mmol/L (136-145)
[2018-08-06] MEDS ORDERED: DC Sedation Protocol FS ONE (07:44)
--- NOTE | 2018-08-06 07:50 | RAD ---
FXR Chest 1 View Portable History: [COPD] Comparison: Radiograph August 03, 2018 Findings: Lungs are hyperinflated. Enteric tube tip below diaphragm although out of field of view. Re moval of the right subclavian central venous catheter. Endotracheal tube tip just below the level of the clavicles in good position. Small left effusion. Small right effusion. Impression: Interval development of small layering pleural effusions and left basilar atelectasis.
--- NOTE | 2018-08-06 09:01 | PRG ---
DATE OF SERVICE: 08/06/2018 35 minutes critical time. SUBJECTIVE: The patient remains intubated on mechanical ventilation. She will wake up and follow commands. She is actually intubated with a size 6.0 tube and was breathing very easily with pressure support of 5. OBJECTIVE: VITAL SIGNS: Temperature is 99, pulse 99, blood pressure 129/74. HEENT: Unremarkable. NECK: No JVD. LUNGS: Clear, but she has a very prolonged expiratory phase. CARDIAC: S1, S2. Regular. ABDOMEN: Soft. EXTREMITIES: No edema. DIAGNOSTIC DATA: Chest x-ray shows prominent pulmonary arteries. ET tube in good position. No clear infiltrate. White blood cell count 7.5, hematocrit 38.3, and platelet count 154. Sodium 137, potassium 3.9, BUN 23, creatinine 0.5 and glucose 123. ASSESSMENT: 1. Chronic obstructive pulmonary disease with exacerbation. 2. Acute hypoxic respiratory failure, requiring mechanical ventilation. PLAN: 1. Extubate and observe. 2. Continue antibiotics. 3. Start Lovenox for deep venous thrombosis prophylaxis. 4. Initiate physical therapy. 5. Hopefully transfer out of the ICU later this afternoon. Job ID: [id number]
[2018-08-06] MEDS: Enoxaparin Sodium 30 MG/0.3 ML SYRINGE SC SCH (09:24)
[2018-08-06] MEDS: Famotidine/PF 20 mg/2ml Vial SLOW IVP SCH (09:24)
--- NOTE | 2018-08-06 11:26 | PDOC.PN ---
- Subjective Encounter Start Date: 08/06/18 Encounter Start Time: 11:24 Subjective: Extubated earlier today. -: Denied chest pain or SOB -: complains of tremors and shaking. - Objective Resuscitation Status - Order Detail: 08/03/18 19:46 Resuscitation Status Routine Resuscitation Status: FULL: Full Resuscitation Vital Signs & Weight: Vital Signs (12 hours) Temp Pulse Resp Pulse Ox 08/06/18 10:54 116 H 23 H 96 08/06/18 07:56 98 08/06/18 07:45 94 10 L 100 08/06/18 07:42 101 H 08/06/18 07:00 99.3 F 08/06/18 06:00 16 08/06/18 04:00 99 F 12 08/06/18 03:34 97 08/06/18 02:00 8 L 08/06/18 00:00 98.9 F 10 L Weight Admit Weight 87 lb 11.84 oz Weight 91 lb 14.924 oz Most Recent Monitor Data Heart Rate from ECG 91 NIBP 142/77 NIBP BP-Mean 98 Respiration from ECG 16 SpO2 100 I&O: 08/05/18 08/06/18 08/07/18 06:59 06:59 06:59 Intake Total 2642.3 2132.3 Output Total 565 642 140 Balance 2077.3 1490.3 -140 Result Diagrams: 08/06/18 05:45 08/06/18 05:45 Phys Exam - Physical Examination thin elderly female, afebrile and anicteric HEENT: PERRLA, moist MMs Neck: supple fair air entry bilaterally with transmitted sound Cardiovascular: RRR Gastrointestinal: soft, non-tender, no distention, positive bowel sounds mild extremity edema noted. Neurological: moves all 4 limbs awake and conversational. tremor+ Psychiatric: A&O x 3 Dx/Plan (1) Acute on chronic respiratory failure with hypoxemia Code(s): J96.21 - ACUTE AND CHRONIC RESPIRATORY FAILURE WITH HYPOXIA Status: Acute Comment: extubated 08/06/2018 (2) Hypokalemia Code(s): E87.6 - HYPOKALEMIA Status: Acute Comment: Repleted. (3) Hypotension Status: Acute Comment: Resolved. Off pressors (4) COPD exacerbation Code(s): J44.1 - CHRONIC OBSTRUCTIVE PULMONARY DISEASE W (ACUTE) EXACERBATION Status: Acute (5) Tremor Code(s): R25.1 - TREMOR, UNSPECIFIED Status: Acute Comment: ? Medication induced. - Plan Continue antibiotics, steroid, bronchodilators and oxygen. -: Wean oxygen as tolerated. -: Diet as tolerated. -: PT eval and treat -: DC IVF. Monitor electrolytes * .
[2018-08-06] MEDS: cefTRIAXone\\ROCEPHIN 2 GM in Sodium Chloride 0.9% 100 ML IVPB SCH (20:24)
[2018-08-06] MEDS: Famotidine 20 MG TAB PO SCH (20:25)
[2018-08-07] MEDS: methylPREDNISolone Sod Succ 40 MG VIAL IVP SCH ×4 (03:25→20:01)
[2018-08-07 05:06] LABS: Anion Gap 9 mmol/L (10-20); BUN (Urea Nitrogen) 13 mg/dL (9.8-20.1); BUN/Creatinine Ratio 28.26; Calc. Creatinine Clearance 65 mL/min (70-130); Carbon Dioxide 34 mmol/L (23-31); Chloride 100 mmol/L (98-107); Estimated GFR-MDRD Greater than 90; Glucose 122 mg/dL (83-110); Magnesium 1.9 mg/dL (1.6-2.6); Phosphorus 2.7 mg/dL (2.3-4.7); Potassium 3.4 mmol/L (3.5-5.1); Sodium 140 mmol/L (136-145)
[2018-08-07 07:46] LABS: Actual Bicarbonate (HCO3a) 33.5 mEq/L (22-28); Base Excess (BEa) 8.1 mEq/L (-2.0 to +3.0); CO2 Tension 49.7 mmHg (35.0-45.0); Calcium, Ionized 1.17 mmol/L (1.12-1.30); Carboxyhemoglobin (COHb) 1.4 gm% (0.0-3.0); Hemoglobin (Hb) 13.2 g/dL (12.0-16.0); O2 Tension (PaO2) 94.7 mmHg (> 70.0); Potassium - ABG Lab 3.31 mmol/L (3.70-5.30); pH, Arterial 7.45 (7.35-7.45)
[2018-08-07 07:49] LABS: ALV-art Gradient 71.335 (0-20); Puncture Site LRA
[2018-08-07] MEDS: Enoxaparin Sodium 30 MG/0.3 ML SYRINGE SC SCH (07:55)
[2018-08-07] MEDS: Famotidine 20 MG TAB PO SCH ×2 (07:56→20:01)
--- NOTE | 2018-08-07 08:34 | PRG ---
DATE OF SERVICE: 08/07/2018 TIME SPENT: 35 minutes of critical care time. SUBJECTIVE: The patient is very confused this morning, wants to go home, setting some inappropriate things. She has been somewhat combative with the nurses last night. OBJECTIVE: VITAL SIGNS: On exam, temperature is 98.9, pulse 78, blood pressure 120/76, and O2 sat 97%. A 24-hour intake 170, output 1590. HEENT: Unremarkable. NECK: Using some accessory muscle to breath. LUNGS: Faint wheezing. CARDIAC: S1 and S2, regular. ABDOMEN: Soft and nontender. EXTREMITIES: No edema. LABORATORY DATA: Sodium 140, potassium 3.4, chloride 100, CO2 of 34, BUN 13, creatinine 0.5, and glucose 122. ABG is pending. ASSESSMENT: 1. Severe chronic obstructive pulmonary disease with exacerbation. 2. Suspect she is having CO2 narcosis. PLAN: 1. Check ABG. 2. Consider restarting BiPAP. 3. Up in a chair as tolerated. 4. Leaving ICU for now. 5. Continue steroids, nebs, and antibiotics. Job ID: [id number]
[2018-08-07] MEDS ORDERED: Furosemide 20 MG TAB PO SCH (16:45)
--- NOTE | 2018-08-07 18:00 | PDOC.PN ---
- Subjective Encounter Start Date: 08/07/18 Encounter Start Time: 17:59 Subjective: Confused with hallucination since morning. Refusing some meds -: complaining of SOB. Denied chest pain. -: Remained afebrile. - Objective Resuscitation Status - Order Detail: 08/03/18 19:46 Resuscitation Status Routine Resuscitation Status: FULL: Full Resuscitation Vital Signs & Weight: Vital Signs (12 hours) Temp Pulse Pulse Pulse Resp BP BP 08/07/18 16:00 97.7 F 08/07/18 13:56 91 19 08/07/18 11:00 97.5 F L 08/07/18 10:36 93 20 08/07/18 09:44 97 83 95/70 111/70 08/07/18 08:00 98.2 F 08/07/18 07:19 93 17 Pulse Ox Pulse Ox Pulse Ox 08/07/18 16:00 08/07/18 13:56 95 08/07/18 11:00 08/07/18 10:36 93 L 08/07/18 09:44 92 L 97 08/07/18 08:00 96 08/07/18 07:19 98 Weight Admit Weight 87 lb 11.84 oz Weight 91 lb 0.815 oz Most Recent Monitor Data Heart Rate from ECG 98 NIBP 137/84 NIBP BP-Mean 101 Respiration from ECG 29 SpO2 97 I&O: 08/06/18 08/07/18 08/08/18 06:59 06:59 06:59 Intake Total 2132.3 170 370 Output Total 642 1675 1380 Balance 1490.3 -1505 -1010 Result Diagrams: 08/06/18 05:45 08/07/18 04:28 Phys Exam - Physical Examination thin elderly female in mid respiratory distress HEENT: PERRLA, moist MMs Neck: supple fair air entry with prolonged expiration.No crackles or rhonchi appreciated Work of breathing is increased Cardiovascular: RRR Gastrointestinal: soft, non-tender, no distention, positive bowel sounds trace ankle and moderated sacral edema noted Neurological: non-focal, moves all 4 limbs conscious and alert,oriented x3. some confusion noted Dx/Plan (1) Acute on chronic respiratory failure with hypoxemia Code(s): J96.21 - ACUTE AND CHRONIC RESPIRATORY FAILURE WITH HYPOXIA Status: Acute Comment: extubated 08/06/2018 (2) Hypokalemia Code(s): E87.6 - HYPOKALEMIA Status: Acute Comment: Recurrent (3) Hypotension Status: Acute Comment: Resolved. Off pressors (4) COPD exacerbation Code(s): J44.1 - CHRONIC OBSTRUCTIVE PULMONARY DISEASE W (ACUTE) EXACERBATION Status: Acute (5) Tremor Code(s): R25.1 - TREMOR, UNSPECIFIED Status: Acute Comment: resolved. Most likely medication (sedative vs steroid) induced (6) Acute metabolic encephalopathy Code(s): G93.41 - METABOLIC ENCEPHALOPATHY Status: Acute Comment: Waxing andwanning Confusion and hallucination. - Plan Start low dose lasix. -: Replete serum potassium -: Continue bronchodilators,steroid and antibiotics. -: Easy recourse to BIPAP * .
[2018-08-07] MEDS: cefTRIAXone\\ROCEPHIN 2 GM in Sodium Chloride 0.9% 100 ML IVPB SCH (20:01)
[2018-08-08] MEDS: methylPREDNISolone Sod Succ 40 MG VIAL IVP SCH ×4 (03:16→20:43)
[2018-08-08 06:00] LABS: #Lymphocytes 2.4 thou/uL (1.20-3.40); #Monocytes 1.6 thou/uL (0.11-0.59); #Neutrophils 7.8 thou/uL (1.40-6.50); %Basophils 0.3 % (0.0-1.0); %Eosinophils 0.1 % (0.0-10.0); %Lymphocytes 20.3 % (21.0-51.0); %Monocytes 13.3 % (0.0-10.0); %Neutrophils 66.1 % (42.0-75.0); Hemoglobin 14.7 g/dL (12.0-16.0); Mean Corpuscular HGB CONC 31.4 g/dL (32.0-36.0); Mean Corpuscular Hemoglobin 27.7 pg (27.0-31.0); Mean Platelet Volume 9.2 fL (7.4-10.4); Platelet Count 166 thou/uL (130-400); RBC Distribution Width 13.1 % (11.5-14.5); Red Blood Cell (RBC) Count 5.32 mill/uL (4.20-5.40); White Blood Cell (WBC) Count 11.8 thou/uL (4.8-10.8)
[2018-08-08 06:12] LABS: Anion Gap 12 mmol/L (10-20); BUN (Urea Nitrogen) 10 mg/dL (9.8-20.1); Calc. Creatinine Clearance 56 mL/min (70-130); Calcium 8.6 mg/dL (7.8-10.44); Carbon Dioxide 34 mmol/L (23-31); Chloride 94 mmol/L (98-107); Estimated GFR-MDRD Greater than 90; Glucose 111 mg/dL (83-110); Potassium 3.9 mmol/L (3.5-5.1); Sodium 136 mmol/L (136-145)
[2018-08-08] MEDS: Famotidine 20 MG TAB PO SCH ×2 (08:06→20:43)
[2018-08-08] MEDS: Enoxaparin Sodium 30 MG/0.3 ML SYRINGE SC SCH (08:06)
--- NOTE | 2018-08-08 08:38 | PRG ---
DATE OF SERVICE: 08/08/2018 SUBJECTIVE: She appears very weak and dyspneic. She did not have the BiPAP started yesterday as I instructed. PHYSICAL EXAMINATION: VITAL SIGNS: On exam, temperature is 97, O2 saturation 98%, pulse 102, and blood pressure 130/81. HEENT: Unremarkable. NECK: No JVD. LUNGS: Bilateral wheezing and tachypnea. Poor air movement. CARDIAC: S1, S2 regular. ABDOMEN: Soft. EXTREMITIES: No edema. LABORATORY DATA: White blood cell count 11.8, hematocrit 46.8, and platelet count 166. Sodium 136, potassium 3.9, chloride 94, CO2 is 34, BUN 2, creatinine 0.5 and glucose 111. ASSESSMENT: 1. End-stage chronic obstructive pulmonary disease. 2. Acute on chronic hypoxic and hypercapnic respiratory failure requiring mechanical ventilation. PLAN: 1. We need to restart BiPAP use intermittently to rest her respiratory muscles. 2. Continue steroids, nebs, and antibiotics. 3. Prognosis is very poor. Job ID: [id number]
--- NOTE | 2018-08-08 19:31 | PDOC.PN ---
- Subjective Encounter Start Date: 08/08/18 Encounter Start Time: 15:30 Subjective: More awake and appropriate today. -: Requiring intermittent BIPAP - Objective Resuscitation Status - Order Detail: 08/03/18 19:46 Resuscitation Status Routine Resuscitation Status: FULL: Full Resuscitation Vital Signs & Weight: Vital Signs (12 hours) Temp Pulse Resp Pulse Ox 08/08/18 18:31 99 22 H 97 08/08/18 14:58 112 H 20 93 L 08/08/18 12:00 98 08/08/18 11:00 97.8 F 08/08/18 10:27 90 08/08/18 10:26 91 24 H 96 08/08/18 08:16 126 H 08/08/18 08:00 98.6 F 93 L 08/08/18 07:38 102 H 23 H 98 Weight Admit Weight 87 lb 11.84 oz Weight 90 lb 14.4 oz Most Recent Monitor Data Heart Rate from ECG 100 NIBP 129/70 NIBP BP-Mean 89 Respiration from ECG 23 SpO2 98 I&O: 08/07/18 08/08/18 08/09/18 06:59 06:59 06:59 Intake Total 170 1180 430 Output Total 1675 4425 1330 Balance -1505 -3245 -900 Result Diagrams: 08/08/18 05:42 08/08/18 05:42 Phys Exam - Physical Examination thin female in mild respiratory distress HEENT: PERRLA, moist MMs Neck: supple fair air movement with prolonged expiration and few rhonchi Cardiovascular: RRR Gastrointestinal: soft, non-tender, no distention, positive bowel sounds Musculoskeletal: no edema Neurological: non-focal, moves all 4 limbs Psychiatric: A&O x 3 Dx/Plan (1) Acute on chronic respiratory failure with hypoxemia Code(s): J96.21 - ACUTE AND CHRONIC RESPIRATORY FAILURE WITH HYPOXIA Status: Acute Comment: extubated 08/06/2018 (2) Hypokalemia Code(s): E87.6 - HYPOKALEMIA Status: Acute Comment: Recurrent (3) Hypotension Status: Acute Comment: Resolved. Off pressors (4) COPD exacerbation Code(s): J44.1 - CHRONIC OBSTRUCTIVE PULMONARY DISEASE W (ACUTE) EXACERBATION Status: Acute (5) Tremor Code(s): R25.1 - TREMOR, UNSPECIFIED Status: Acute Comment: resolved. Most likely medication (sedative vs steroid) induced (6) Acute metabolic encephalopathy Code(s): G93.41 - METABOLIC ENCEPHALOPATHY Status: Acute Comment: Waxing and wanning Confusion and hallucination. - Plan Continue antibiotics, steroid and bronchodilators -: BIPAP as needed for SOB. -: Condition still tenuous. Continue care in ICU * .
[2018-08-08] MEDS: cefTRIAXone\\ROCEPHIN 2 GM in Sodium Chloride 0.9% 100 ML IVPB SCH (20:43)
[2018-08-09] MEDS: methylPREDNISolone Sod Succ 40 MG VIAL IVP SCH ×4 (02:09→20:07)
[2018-08-09 06:12] LABS: #Lymphocytes 0.7 thou/uL (1.20-3.40); #Monocytes 0.3 thou/uL (0.11-0.59); #Neutrophils 5.2 thou/uL (1.40-6.50); %Basophils 0.6 % (0.0-1.0); %Eosinophils 0.2 % (0.0-10.0); %Lymphocytes 10.8 % (21.0-51.0); %Monocytes 4.3 % (0.0-10.0); %Neutrophils 84.2 % (42.0-75.0); Hemoglobin 12.4 g/dL (12.0-16.0); Mean Corpuscular HGB CONC 31.2 g/dL (32.0-36.0); Mean Corpuscular Hemoglobin 27.3 pg (27.0-31.0); Mean Corpuscular Volume 87.6 fL (78.0-98.0); Mean Platelet Volume 9.4 fL (7.4-10.4); Platelet Count 137 thou/uL (130-400); Red Blood Cell (RBC) Count 4.55 mill/uL (4.20-5.40); White Blood Cell (WBC) Count 6.2 thou/uL (4.8-10.8)
[2018-08-09 06:28] LABS: Anion Gap 9 mmol/L (10-20); BUN (Urea Nitrogen) 12 mg/dL (9.8-20.1); Calc. Creatinine Clearance 66 mL/min (70-130); Calcium 8.2 mg/dL (7.8-10.44); Carbon Dioxide 32 mmol/L (23-31); Chloride 98 mmol/L (98-107); Estimated GFR-MDRD Greater than 90; Glucose 129 mg/dL (83-110); Potassium 4.2 mmol/L (3.5-5.1); Sodium 135 mmol/L (136-145)
[2018-08-09] MEDS: Enoxaparin Sodium 30 MG/0.3 ML SYRINGE SC SCH (09:20)
[2018-08-09] MEDS: Famotidine 20 MG TAB PO SCH ×2 (09:20→19:56)
--- NOTE | 2018-08-09 09:43 | PRG ---
DATE OF SERVICE: 08/09/2018 SUBJECTIVE: The patient is much better today. She is up in a chair. She is eating. She was taken off BiPAP earlier this morning. OBJECTIVE: VITAL SIGNS: Temperature is 98.7, pulse 73, blood pressure 125/78, O2 saturation 100%. HEENT: Unremarkable. NECK: No JVD. LUNGS: Distant, but clear breath sounds. CARDIAC: S1, S2. Regular. ABDOMEN: Soft. EXTREMITIES: No edema. LABORATORY DATA: White blood cell count 6.2, hematocrit 39.9, platelet count 137. Sodium 135, potassium 4.3, chloride 98, CO2 of 30, BUN 12, creatinine 0.5, glucose 129. ASSESSMENT: 1. Chronic obstructive pulmonary disease with exacerbation. 2. Acute hypoxic and hypercapnic respiratory failure. PLAN: 1. Try to wean off BiPAP today as tolerated. 2. Continue steroids nebulization treatments and antibiotics. 3. Hopefully transfer to [facility] or the floor by tomorrow. Job ID: [id number]
--- NOTE | 2018-08-09 12:47 | PDOC.PN ---
- Subjective Encounter Start Date: 08/09/18 Encounter Start Time: 10:46 Subjective: Feeling better. Slept with BIPAP overnight. - Objective Resuscitation Status - Order Detail: 08/03/18 19:46 Resuscitation Status Routine Resuscitation Status: FULL: Full Resuscitation Vital Signs & Weight: Vital Signs (12 hours) Temp Pulse Pulse Pulse Resp BP BP 08/09/18 10:29 74 21 H 08/09/18 08:25 88 89 122/71 135/80 08/09/18 08:00 97.7 F 08/09/18 07:12 71 08/09/18 07:10 75 25 H 08/09/18 04:00 98.7 F 08/09/18 02:54 77 Pulse Ox Pulse Ox Pulse Ox 08/09/18 10:29 99 08/09/18 08:25 100 94 L 08/09/18 08:00 90 L 08/09/18 07:12 08/09/18 07:10 99 08/09/18 04:00 08/09/18 02:54 Weight Admit Weight 87 lb 11.84 oz Weight 92 lb 9.6 oz Most Recent Monitor Data Heart Rate from ECG 78 NIBP 113/75 NIBP BP-Mean 87 Respiration from ECG 25 SpO2 100 I&O: 08/08/18 08/09/18 08/10/18 06:59 06:59 06:59 Intake Total 1180 650 300 Output Total 4425 2660 175 125 Result Diagrams: 08/09/18 05:59 08/09/18 05:59 Phys Exam - Physical Examination Constitutional: NAD thin elderly female HEENT: PERRLA, moist MMs Neck: no JVD, supple fair air entrty with prolonged exporation. no obvious rhonchi apprecuiated Cardiovascular: RRR Gastrointestinal: soft, no distention, positive bowel sounds Musculoskeletal: no edema Neurological: non-focal, moves all 4 limbs Psychiatric: A&O x 3 Dx/Plan (1) Acute on chronic respiratory failure with hypoxemia Code(s): J96.21 - ACUTE AND CHRONIC RESPIRATORY FAILURE WITH HYPOXIA Status: Acute Comment: extubated 08/06/2018. improved. Seem back to baseline. now requiring usual home O2 (2) Hypokalemia Code(s): E87.6 - HYPOKALEMIA Status: Acute Comment: Repleted (3) Hypotension Status: Acute Comment: Resolved. Off pressors (4) COPD exacerbation Code(s): J44.1 - CHRONIC OBSTRUCTIVE PULMONARY DISEASE W (ACUTE) EXACERBATION Status: Acute Comment: Advanced. (5) Tremor Code(s): R25.1 - TREMOR, UNSPECIFIED Status: Acute Comment: resolved. Most likely medication (sedative vs steroid) induced (6) Acute metabolic encephalopathy Code(s): G93.41 - METABOLIC ENCEPHALOPATHY Status: Acute Comment: Resolved. - Plan Continue antibiotic, steroid, bronchodilators and oxygen. -: BIPAP as per Pulomonary. -: Diet as tolerated. * .
[2018-08-09] MEDS: cefTRIAXone\\ROCEPHIN 2 GM in Sodium Chloride 0.9% 100 ML IVPB SCH (20:06)
[2018-08-10] MEDS: methylPREDNISolone Sod Succ 40 MG VIAL IVP SCH ×3 (03:09→15:41)
[2018-08-10 07:19] LABS: #Lymphocytes 0.7 thou/uL (1.20-3.40); #Monocytes 0.3 thou/uL (0.11-0.59); #Neutrophils 6.4 thou/uL (1.40-6.50); %Lymphocytes 8.8 % (21.0-51.0); %Neutrophils 87.2 % (42.0-75.0); Hemoglobin 12.7 g/dL (12.0-16.0); Mean Corpuscular Hemoglobin 28.4 pg (27.0-31.0); Mean Corpuscular Volume 88.6 fL (78.0-98.0); Mean Platelet Volume 9.9 fL (7.4-10.4); Platelet Count 137 thou/uL (130-400); Red Blood Cell (RBC) Count 4.47 mill/uL (4.20-5.40); White Blood Cell (WBC) Count 7.4 thou/uL (4.8-10.8)
[2018-08-10 07:34] LABS: Anion Gap 9 mmol/L (10-20); BUN (Urea Nitrogen) 14 mg/dL (9.8-20.1); Calc. Creatinine Clearance 64 mL/min (70-130); Calcium 8.4 mg/dL (7.8-10.44); Carbon Dioxide 35 mmol/L (23-31); Chloride 95 mmol/L (98-107); Estimated GFR-MDRD Greater than 90; Glucose 122 mg/dL (83-110); Potassium 4.1 mmol/L (3.5-5.1); Sodium 135 mmol/L (136-145)
--- NOTE | 2018-08-10 09:02 | PRG ---
DATE OF SERVICE: 08/10/2018 SUBJECTIVE: She is in good spirits, has no complaints, did not require BiPAP yesterday. OBJECTIVE: VITAL SIGNS: Temperature is 98.2, pulse 81, blood pressure 130/84. A 24-hour intake 760, output 1795. HEENT: Unremarkable. NECK: No JVD. LUNGS: Clear, but distant breath sounds. CARDIAC: S1, S2. Regular. ABDOMEN: Soft. EXTREMITIES: No edema. LABORATORY DATA: Sodium 135, potassium 4.1, BUN 14, creatinine 0.5, glucose 122. White blood cell count 7.4, hematocrit 39.6, platelet count 137. ASSESSMENT: 1. Chronic obstructive pulmonary disease exacerbation. 2. Status post acute respiratory failure requiring endotracheal intubation and mechanical ventilation, extubation, then BiPAP. 3. Improved encephalopathy. PLAN: She can be transferred to telemetry. It looks like her need for BiPAP has dissipated. I will convert her over to oral steroids. Main issue at this point is physical therapy. Job ID: [id number]
[2018-08-10] MEDS: Enoxaparin Sodium 30 MG/0.3 ML SYRINGE SC SCH (09:17)
[2018-08-10] MEDS: Famotidine 20 MG TAB PO SCH ×2 (09:17→19:24)
--- NOTE | 2018-08-10 11:21 | PDOC.PN ---
- Subjective Encounter Start Date: 08/10/18 Encounter Start Time: 11:20 Subjective: No new problem -: Off BIPAP. Denied fever or chest pain. - Objective Resuscitation Status - Order Detail: 08/03/18 19:46 Resuscitation Status Routine Resuscitation Status: FULL: Full Resuscitation Vital Signs & Weight: Vital Signs (12 hours) Temp Pulse Resp Pulse Ox 08/10/18 10:32 77 23 H 99 08/10/18 06:41 99 08/10/18 06:39 74 21 H 99 08/10/18 04:00 98.2 F 08/10/18 02:07 72 21 H 100 08/10/18 00:00 98.2 F Weight Admit Weight 87 lb 11.84 oz Weight 90 lb 9.6 oz Most Recent Monitor Data Heart Rate from ECG 71 NIBP 132/84 NIBP BP-Mean 100 Respiration from ECG 24 SpO2 100 I&O: 08/09/18 08/10/18 08/11/18 06:59 06:59 06:59 Intake Total 650 760 Output Total 2660 8375 [facility] -2009 Result Diagrams: 08/10/18 06:45 08/10/18 06:45 Phys Exam - Physical Examination thin elderly female with increased work of breathing. HEENT: PERRLA, moist MMs Neck: no JVD, supple Respiratory: no rales Fair air entry bilaterally with prolonged expiration and few rhonchi. Work of breathing is increased Cardiovascular: RRR Gastrointestinal: soft, non-tender, no distention, positive bowel sounds Musculoskeletal: no edema, pulses present Neurological: non-focal, moves all 4 limbs Psychiatric: A&O x 3 Dx/Plan (1) Acute on chronic respiratory failure with hypoxemia Code(s): J96.21 - ACUTE AND CHRONIC RESPIRATORY FAILURE WITH HYPOXIA Status: Acute Comment: extubated 08/06/2018. improved. Seem back to baseline. now requiring usual home O2 (2) Hypokalemia Code(s): E87.6 - HYPOKALEMIA Status: Acute Comment: Repleted (3) Hypotension Status: Acute Comment: Resolved. Off pressors (4) COPD exacerbation Code(s): J44.1 - CHRONIC OBSTRUCTIVE PULMONARY DISEASE W (ACUTE) EXACERBATION Status: Acute Comment: Advanced. (5) Tremor Code(s): R25.1 - TREMOR, UNSPECIFIED Status: Acute Comment: resolved. Most likely medication (sedative vs steroid) induced (6) Acute metabolic encephalopathy Code(s): G93.41 - METABOLIC ENCEPHALOPATHY Status: Acute Comment: Resolved. - Plan Continue bronchodilators, steroid and antibiotic. -: tranfer to floor * .
--- NOTE | 2018-08-10 16:10 | PQF ---
TRACIE MCCAULEY CASE CROW DSOUZA [id number] [facility] [place] [id number] CLINICAL DOCUMENTATION IMPROVEMENT CLARIFICATION FORM: ICD-10 Updated PLEASE DO AN ADDENDUM TO THE PROGRESS NOTE WITH ANY DOCUMENTATION UPDATES OR ADDITIONS AND CARRY THROUGH TO DC SUMMARY. THANK YOU. Date: 08/10/18 ATTN: Dr. Dsouza Please exercise your independent, professional judgment in responding to the clarification form. Clinical indicators are provided on the bottom of this form for your review Please check appropriate box(s): [ X ] Protein Calorie Malnutrition: [ x ] Mild [ ] Other Malnutrition (please specify) __ [ ] Underweight without malnutrition [ ] Cachexia [ ] Other diagnosis [ ] Unable to determine In addition, please specify: Present on Admission (POA): [x ] Yes [ ] No [ ] Unable to determine CLINICAL INDICATORS - SIGNS / SYMPTOMS / LABS BMI of 17.2 per 08/08 note Two or More of the Following: Unintentional Insufficient Energy Intake Weight Loss Loss of Muscle Mass Loss of Subcutaneous Fat Localized/Generalized Fluid Accumulation Diminished Handgrip Strength RISK FACTORS Change in appetite / nausea / vomiting / diarrhea--> 08/08: does not have good appetite per pt Chronic illness copd exacerbation, acute on chronic resp failure per H&P on intermittent bipap 08/08 note TREATMENT: Dietary consult 08/08 per orders Nutritional supplements 08/08 Ensure Enlive BID per orders Moderate Malnutrition (in acute illness) Energy Intake: <75% of estimated energy requirement for > 7 days Weight Loss: 1-2%/1 week; 5%/ 1 month; 7.5%/3 months Other: mild body fat loss; mild muscle mass loss; mild fluid accumulation; Severe Malnutrition (in acute illness) Energy Intake: < 50% of estimated energy requirement for > 5 days Weight Loss: >1-2%/1 week; >5%/1 month; >7.5%/3 months Other: moderate body fat loss; moderate muscle mass loss; moderate- severe fluid accumulation; measurably reduced book mender strength Moderate Malnutrition (in chronic illness) Energy Intake: <75% of estimated energy requirement for >1 month Weight Loss: 5%/1 month; 7.5%/3 months; 10%/6 months; 20%/1 year Other: mild body fat loss; mild muscle mass loss; mild fluid accumulation Severe Malnutrition (in chronic illness) Energy Intake: <75% of estimated energy requirement for >1 month Weight Loss: >5%/1 month; >7.5%/3 months; >10%/6 months; >20%/1 year Other: severe body fat loss; severe muscle mass loss; severe fluid accumulation ; measurably reduced book mender strength (This form is maintained as a part of the permanent medical record) 2014 [employer]. All Rights Reserved Danya Reeder RN, BSN, CCDS [email or web address]
[2018-08-10] MEDS ORDERED: Cefdinir 300 MG CAP PO SCH (17:15)
[2018-08-10] MEDS ORDERED: predniSONE 20 MG TAB PO SCH (17:15)
--- NOTE | 2018-08-11 09:12 | PRG ---
DATE OF SERVICE: 08/11/2018 SUBJECTIVE: This morning, she is better, less short of breath, less cough, less wheezing. OBJECTIVE: VITAL SIGNS: Temperature 98, pulse 76, respiratory 23, saturations are 99% on 1 L, blood pressure 128/80. CHEST: Decreased breath sounds. Minimal wheezing. CARDIAC: Normal S1, S2. No gallops. ABDOMEN: No masses. IMPRESSION: 1. Chronic obstructive pulmonary disease exacerbation. 2. Respiratory failure, improved. 3. Encephalopathy, much better. PLAN: She could be transferred out of the ICU to a monitored bed. PT, supportive care, eventually home. Job ID: [id number]
[2018-08-11] MEDS: Cefdinir 300 MG CAP PO SCH (10:02)
[2018-08-11] MEDS: predniSONE 20 MG TAB PO SCH (10:02)
[2018-08-11] MEDS: Enoxaparin Sodium 30 MG/0.3 ML SYRINGE SC SCH (10:03)
[2018-08-11] MEDS: Famotidine 20 MG TAB PO SCH ×2 (10:03→20:49)
--- NOTE | 2018-08-11 11:28 | PDOC.PN ---
- Subjective Encounter Start Date: 08/11/18 Encounter Start Time: 11:27 Subjective: No new problem -: Denied fever, chestpain or worsening SOB. - Objective Resuscitation Status - Order Detail: 08/03/18 19:46 Resuscitation Status Routine Resuscitation Status: FULL: Full Resuscitation Vital Signs & Weight: Vital Signs (12 hours) Temp Pulse Resp Pulse Ox 08/11/18 10:59 80 20 99 08/11/18 07:55 99 08/11/18 07:53 76 23 H 99 08/11/18 05:00 98.0 F 08/11/18 02:32 64 18 100 08/11/18 00:00 97.8 F Weight Admit Weight 87 lb 11.84 oz Weight 90 lb 9.6 oz Most Recent Monitor Data Heart Rate from ECG 72 NIBP 149/78 NIBP BP-Mean 101 Respiration from ECG 23 SpO2 100 I&O: 08/10/18 08/11/18 08/12/18 06:59 06:59 06:59 Intake Total 760 1160 Output Total 1795 2540 Balance -1035 -1380 Result Diagrams: 08/10/18 06:45 08/10/18 06:45 Phys Exam - Physical Examination Constitutional: NAD thin elderly in mild respiratory distress HEENT: PERRLA, moist MMs Neck: no JVD, supple Respiratory: no rales, no rhonchi fair air entry with prolonged expiration and few scattered rhonchi Cardiovascular: RRR Gastrointestinal: soft, non-tender, no distention, positive bowel sounds Musculoskeletal: no edema, pulses present Neurological: non-focal, moves all 4 limbs Psychiatric: A&O x 3 Dx/Plan (1) Acute on chronic respiratory failure with hypoxemia Code(s): J96.21 - ACUTE AND CHRONIC RESPIRATORY FAILURE WITH HYPOXIA Status: Acute Comment: extubated 08/06/2018. improved. Seem back to baseline. now requiring usual home O2 (2) Hypokalemia Code(s): E87.6 - HYPOKALEMIA Status: Acute Comment: Repleted (3) Hypotension Status: Acute Comment: Resolved. Off pressors (4) COPD exacerbation Code(s): J44.1 - CHRONIC OBSTRUCTIVE PULMONARY DISEASE W (ACUTE) EXACERBATION Status: Acute Comment: Advanced. (5) Tremor Code(s): R25.1 - TREMOR, UNSPECIFIED Status: Acute Comment: resolved. Most likely medication (sedative vs steroid) induced (6) Acute metabolic encephalopathy Code(s): G93.41 - METABOLIC ENCEPHALOPATHY Status: Acute Comment: Resolved. (7) Physical deconditioning Code(s): R53.81 - OTHER MALAISE Status: Acute (8) Acute respiratory failure requiring reintubation Code(s): J96.00 - ACUTE RESPIRATORY FAILURE, UNSP W HYPOXIA OR HYPERCAPNIA Status: Acute - Plan Continue antibiotic, steroid, bronchodilators and oxygen -: Continue PT -: Will benefit from in patient rehab. -: consult rehab recreening. * .
--- NOTE | 2018-08-11 13:51 | EKG ---
Test Reason : Blood Pressure : / mmHG Vent. Rate : 074 BPM Atrial Rate : 074 BPM P-R Int : 154 ms QRS Dur : 100 ms QT Int : 420 ms P-R-T Axes : 088 -07 088 degrees QTc Int : 466 ms Normal sinus rhythm Nonspecific ST and T wave abnormality Abnormal ECG Confirmed by WILBER HERRERA DO ([id number]), market editor ZITA SMITH ([id number]) on 08/11/2018 1:51:40 PM Referred By: Confirmed By:WILBER HERRERA DO
[2018-08-12] MEDS: Cefdinir 300 MG CAP PO SCH ×2 (08:35→10:30)
[2018-08-12] MEDS: predniSONE 20 MG TAB PO SCH ×2 (08:35→10:28)
[2018-08-12] MEDS: Enoxaparin Sodium 30 MG/0.3 ML SYRINGE SC SCH (08:35)
[2018-08-12] MEDS: Famotidine 20 MG TAB PO SCH ×2 (08:35→20:42)
--- NOTE | 2018-08-12 08:56 | PDOC.PN ---
- Subjective Encounter Start Date: 08/12/18 Encounter Start Time: 08:45 Subjective: No new problem. -: Gets very dyspneic with minimal exertion. -: No fever - Objective Resuscitation Status - Order Detail: 08/03/18 19:46 Resuscitation Status Routine Resuscitation Status: FULL: Full Resuscitation Vital Signs & Weight: Vital Signs (12 hours) Temp Pulse Resp Pulse Ox 08/12/18 07:54 83 19 98 08/12/18 04:00 98.7 F 08/12/18 03:01 89 25 H 96 08/12/18 00:00 98.8 F 08/11/18 23:17 74 19 100 Weight Admit Weight 87 lb 11.84 oz Weight 90 lb 6 oz Most Recent Monitor Data Heart Rate from ECG 80 NIBP 123/83 NIBP BP-Mean 96 Respiration from ECG 23 SpO2 100 I&O: 08/11/18 08/12/18 08/13/18 06:59 06:59 06:59 Intake Total 1160 1060 110 Output Total 2540 1435 Balance -1380 -375 110 Result Diagrams: 08/10/18 06:45 08/10/18 06:45 Phys Exam - Physical Examination thin and frail. Mild respiratory distress HEENT: PERRLA, moist MMs Neck: supple Respiratory: no wheezing, no rales, no rhonchi fair air entry with prolonged expiration Cardiovascular: RRR Gastrointestinal: soft, non-tender, no distention, positive bowel sounds Musculoskeletal: no edema, pulses present Neurological: non-focal, moves all 4 limbs Psychiatric: A&O x 3 Dx/Plan (1) Acute on chronic respiratory failure with hypoxemia Code(s): J96.21 - ACUTE AND CHRONIC RESPIRATORY FAILURE WITH HYPOXIA Status: Acute Comment: extubated 08/06/2018. improved. Seem back to baseline. now requiring usual home O2 (2) Hypokalemia Code(s): E87.6 - HYPOKALEMIA Status: Acute Comment: Repleted (3) Hypotension Status: Acute Comment: Resolved. Off pressors (4) COPD exacerbation Code(s): J44.1 - CHRONIC OBSTRUCTIVE PULMONARY DISEASE W (ACUTE) EXACERBATION Status: Acute Comment: Advanced. ? End stage. Get dyspneic with minimal exertion. (5) Tremor Code(s): R25.1 - TREMOR, UNSPECIFIED Status: Acute Comment: resolved. Most likely medication (sedative vs steroid) induced (6) Acute metabolic encephalopathy Code(s): G93.41 - METABOLIC ENCEPHALOPATHY Status: Acute Comment: Resolved. (7) Physical deconditioning Code(s): R53.81 - OTHER MALAISE Status: Acute (8) Acute respiratory failure requiring reintubation Code(s): J96.00 - ACUTE RESPIRATORY FAILURE, UNSP W HYPOXIA OR HYPERCAPNIA Status: Acute - Plan Continue antibiotic, steroid and bronchodilators. -: Awaiting rehab screeing. Consult cardio pulmonary rehab -: Diet as tolerated. -: Continue continous oxygen therapy. Transfer to tele * .
--- NOTE | 2018-08-12 09:41 | PRG ---
DATE OF SERVICE: 08/12/2018 SUBJECTIVE: This morning, she is much improved. OBJECTIVE: VITAL SIGNS: Saturations are 90% on 1 L, respirations 19, pulse 73, blood pressure . CHEST: Decreased breath sounds. Prolonged expiration. CARDIAC: Normal S1, S2. No gallops. ABDOMEN: No masses. IMPRESSION: End-stage chronic obstructive pulmonary disease, improved. She can be transferred out of the ICU. Continue neb treatments and steroids. We will follow. Job ID: [id number]
[2018-08-13 06:52] LABS: #Eosinphils 0.1 thou/uL (0.0-0.7); #Lymphocytes 2.5 thou/uL (1.20-3.40); #Neutrophils 4.9 thou/uL (1.40-6.50); %Basophils 0.2 % (0.0-1.0); %Eosinophils 0.7 % (0.0-10.0); %Lymphocytes 29.5 % (21.0-51.0); %Monocytes 11.9 % (0.0-10.0); %Neutrophils 57.7 % (42.0-75.0); Hemoglobin 12.3 g/dL (12.0-16.0); Mean Corpuscular HGB CONC 30.7 g/dL (32.0-36.0); Mean Corpuscular Volume 91.1 fL (78.0-98.0); Mean Platelet Volume 9.1 fL (7.4-10.4); Platelet Count 153 thou/uL (130-400); Red Blood Cell (RBC) Count 4.39 mill/uL (4.20-5.40); White Blood Cell (WBC) Count 8.6 thou/uL (4.8-10.8)
[2018-08-13 07:06] LABS: Anion Gap 9 mmol/L (10-20); BUN (Urea Nitrogen) 13 mg/dL (9.8-20.1); Calc. Creatinine Clearance 66 mL/min (70-130); Calcium 8.2 mg/dL (7.8-10.44); Carbon Dioxide 36 mmol/L (23-31); Chloride 96 mmol/L (98-107); Estimated GFR-MDRD Greater than 90; Glucose 73 mg/dL (83-110); Potassium 3.8 mmol/L (3.5-5.1); Sodium 137 mmol/L (136-145)
[2018-08-13] MEDS: predniSONE 20 MG TAB PO SCH (08:57)
[2018-08-13] MEDS: Cefdinir 300 MG CAP PO SCH (08:57)
[2018-08-13] MEDS: Famotidine 20 MG TAB PO SCH ×2 (08:57→21:29)
[2018-08-13] MEDS: Enoxaparin Sodium 40 MG/0.4 ML SYRINGE SC SCH (08:57)
--- NOTE | 2018-08-13 10:48 | PRG ---
DATE OF SERVICE: 08/13/2018 SUBJECTIVE: Ms. Paredes continues to slowly improve. She had no acute complaints today. OBJECTIVE: VITAL SIGNS: Temperature 97.8, pulse 83, respirations 99% on 2L. HEENT: Unremarkable. NECK: No JVD. LUNGS: Clear to auscultation without wheezing. CARDIAC: S1 and S2. Regular. ABDOMEN: Soft. EXTREMITIES: No edema. LABORATORY DATA: White blood cell count 8.6, hematocrit 40, and platelet count 153. Sodium 137, potassium 3.8, BUN 13, creatinine 0.5, and glucose 73. ASSESSMENT: 1. Chronic obstructive pulmonary disease with exacerbation. 2. Status post acute respiratory failure, requiring mechanical ventilation. PLAN: This patient appears stable for transfer to rehab. I think she would benefit greatly from rehab before going home as to decrease her chance for readmission. I would slowly wean her steroids over a couple of weeks. Job ID: [id number]
[2018-08-13 13:38] VITALS: BMI 17.0
--- NOTE | 2018-08-13 15:48 | PDOC.PN ---
- Subjective Encounter Start Date: 08/13/18 Encounter Start Time: 08:46 Subjective: No new problem. -: Awaiting placemnt - Objective Resuscitation Status - Order Detail: 08/03/18 19:46 Resuscitation Status Routine Resuscitation Status: FULL: Full Resuscitation Vital Signs & Weight: Vital Signs (12 hours) Temp Pulse Pulse Pulse Resp BP BP 08/13/18 15:33 98.9 F 97 19 08/13/18 14:00 100 14 08/13/18 13:29 102 H 108 H 127/74 134/81 08/13/18 11:51 98.4 F 99 20 08/13/18 10:43 100 14 08/13/18 09:18 81 84 146/69 H 133/74 08/13/18 07:19 97.8 F 83 18 08/13/18 06:55 80 14 08/13/18 04:00 97.2 F L 80 18 BP BP Pulse Ox Pulse Ox Pulse Ox 08/13/18 15:33 118/72 92 L 08/13/18 14:00 08/13/18 13:29 94 L 90 L 08/13/18 11:51 116/61 92 L 08/13/18 10:43 08/13/18 09:18 08/13/18 07:19 136/67 99 08/13/18 06:55 08/13/18 04:00 143/57 H 100 Weight Admit Weight 87 lb 11.84 oz Weight 90 lb 6 oz Most Recent Monitor Data Heart Rate from ECG 80 NIBP 123/83 NIBP BP-Mean 96 Respiration from ECG 23 SpO2 100 I&O: 08/12/18 08/13/18 08/14/18 06:59 06:59 06:59 Intake Total 1060 930 Output Total 1435 640 Balance -375 290 Result Diagrams: 08/13/18 06:34 08/13/18 06:34 Phys Exam - Physical Examination thin elderly female HEENT: PERRLA, moist MMs Neck: no JVD, supple fair air entry with prolonged expiration. Cardiovascular: RRR Gastrointestinal: soft, non-tender, no distention, positive bowel sounds Musculoskeletal: no edema, pulses present Neurological: non-focal, moves all 4 limbs Psychiatric: A&O x 3 Dx/Plan (1) Acute on chronic respiratory failure with hypoxemia Code(s): J96.21 - ACUTE AND CHRONIC RESPIRATORY FAILURE WITH HYPOXIA Status: Acute Comment: extubated 08/06/2018. improved. Seem back to baseline. now requiring usual home O2. (2) Hypokalemia Code(s): E87.6 - HYPOKALEMIA Status: Acute Comment: Repleted (3) Hypotension Status: Acute Comment: Resolved. Off pressors (4) COPD exacerbation Code(s): J44.1 - CHRONIC OBSTRUCTIVE PULMONARY DISEASE W (ACUTE) EXACERBATION Status: Acute Comment: Advanced. ? End stage. Get dyspneic with minimal exertion. (5) Tremor Code(s): R25.1 - TREMOR, UNSPECIFIED Status: Acute Comment: resolved. Most likely medication (sedative vs steroid) induced (6) Acute metabolic encephalopathy Code(s): G93.41 - METABOLIC ENCEPHALOPATHY Status: Acute Comment: Resolved. (7) Physical deconditioning Code(s): R53.81 - OTHER MALAISE Status: Acute (8) Acute respiratory failure requiring reintubation Code(s): J96.00 - ACUTE RESPIRATORY FAILURE, UNSP W HYPOXIA OR HYPERCAPNIA Status: Acute - Plan Continue current treatment . -: Awaiting placement * .
[2018-08-14] MEDS: Cefdinir 300 MG CAP PO SCH (09:10)
[2018-08-14] MEDS: Famotidine 20 MG TAB PO SCH (09:10)
[2018-08-14] MEDS: predniSONE 20 MG TAB PO SCH (09:11)
[2018-08-14] MEDS: Enoxaparin Sodium 40 MG/0.4 ML SYRINGE SC SCH (09:11)
--- NOTE | 2018-08-14 09:54 | PRG ---
DATE OF SERVICE: 08/14/2018 SUBJECTIVE: She is up in chair. She said she feels good and she is ready to go to [facility]. OBJECTIVE: VITAL SIGNS: Temperature 98.3, pulse 86, respirations 20, saturation 93% on 2 L, blood pressure 119/65. HEENT: Unremarkable. NECK: No JVD. LUNGS: Clear, but distant breath sounds. CARDIAC: S1, S2. Regular. ABDOMEN: Soft. EXTREMITIES: No edema. LABORATORY DATA: None. ASSESSMENT: 1. Chronic obstructive pulmonary disease with exacerbation. 2. Status post acute respiratory failure requiring mechanical ventilation. PLAN: This patient is stable for discharge to [facility] today. She will need to have her steroids tapered over about 2 weeks. She should stop antibiotics after 10 full days between hospital and home. Job ID: [id number]
--- NOTE | 2018-08-14 15:10 | PDOC.PN ---
- Subjective Encounter Start Date: 08/14/18 Encounter Start Time: 15:08 Subjective: No new problem -: Awaiting SNF placement - Objective Resuscitation Status - Order Detail: 08/03/18 19:46 Resuscitation Status Routine Resuscitation Status: FULL: Full Resuscitation Vital Signs & Weight: Vital Signs (12 hours) Temp Pulse Pulse Pulse Resp BP BP 08/14/18 11:55 98.3 F 102 H 20 08/14/18 10:48 111 H 114 H 114/58 L 107/57 L 08/14/18 10:24 79 16 08/14/18 07:50 98.3 F 86 20 08/14/18 06:46 75 16 08/14/18 04:00 98.1 F 82 19 BP BP Pulse Ox Pulse Ox Pulse Ox 08/14/18 11:55 114/58 L 97 08/14/18 10:48 98 94 L 08/14/18 10:24 98 08/14/18 07:50 119/65 93 L 08/14/18 06:46 99 08/14/18 04:00 131/64 92 L Weight Admit Weight 87 lb 11.84 oz Weight 90 lb 9.6 oz Most Recent Monitor Data Heart Rate from ECG 80 NIBP 123/83 NIBP BP-Mean 96 Respiration from ECG 23 SpO2 100 I&O: 08/13/18 08/14/18 08/15/18 06:59 06:59 06:59 Intake Total 930 750 Output Total 640 Balance 290 750 Result Diagrams: 08/13/18 06:34 08/13/18 06:34 Phys Exam - Physical Examination Constitutional: NAD thin HEENT: PERRLA, moist MMs Neck: supple fair air entry bilaterally with few righ basal crackles posteriorly No rhonchi appreciated Cardiovascular: RRR Gastrointestinal: soft, non-tender, no distention, positive bowel sounds Musculoskeletal: no edema, pulses present Neurological: non-focal, moves all 4 limbs Psychiatric: A&O x 3 Dx/Plan (1) Acute on chronic respiratory failure with hypoxemia Code(s): J96.21 - ACUTE AND CHRONIC RESPIRATORY FAILURE WITH HYPOXIA Status: Acute Comment: extubated 08/06/2018. improved. Seem back to baseline. now requiring usual home O2. (2) Hypokalemia Code(s): E87.6 - HYPOKALEMIA Status: Acute Comment: Repleted (3) Hypotension Status: Acute Comment: Resolved. Off pressors (4) COPD exacerbation Code(s): J44.1 - CHRONIC OBSTRUCTIVE PULMONARY DISEASE W (ACUTE) EXACERBATION Status: Acute Comment: Advanced. ? End stage. Get dyspneic with minimal exertion. (5) Tremor Code(s): R25.1 - TREMOR, UNSPECIFIED Status: Acute Comment: resolved. Most likely medication (sedative vs steroid) induced (6) Acute metabolic encephalopathy Code(s): G93.41 - METABOLIC ENCEPHALOPATHY Status: Acute Comment: Resolved. (7) Physical deconditioning Code(s): R53.81 - OTHER MALAISE Status: Acute (8) Acute respiratory failure requiring reintubation Code(s): J96.00 - ACUTE RESPIRATORY FAILURE, UNSP W HYPOXIA OR HYPERCAPNIA Status: Acute - Plan Continue antibiotics to complete 10 days course. -: Continue bronchodilators andsteroid. -: Awaiting SNF placement * .
--- NOTE | 2018-08-14 18:13 | DIS ---
DATE OF ADMISSION: 08/03/2018 DATE OF DISCHARGE: 08/14/2018 PRIMARY CARE PHYSICIAN: Talita Waterman MD DISCHARGE DIAGNOSES: 1. Yzssb-bw-[id number] respiratory failure with hypoxemia. 2. Acute respiratory failure requiring intubation. 3. Chronic obstructive pulmonary disease with acute exacerbation. 4. Acute metabolic encephalopathy. 5. Hypotension requiring pressors. 6. Dpri-by-ajeunphv protein-calorie malnutrition. 7. Physical deconditioning. CONSULTS: Pulmonary and Critical Care. HOSPITAL COURSE: A 77-year-old female with known history of chronic respiratory failure from COPD, on home oxygen, and remote tobacco use, admitted due to worsening shortness of breath and cough for about 2 days prior to presentation associated with generalized weakness. The patient was treated initially with noninvasive respiratory support, steroid, and bronchodilators with no improvement, and was subsequently intubated and admitted to the ICU. The patient initially was hypotensive requiring pressors, but this improved with IV fluid therapy and was subsequently weaned of pressors. The patient was continued on bronchodilators, pulmonary toilet, antibiotics, steroid with improvement, and was later extubated. She, however, required BiPAP post extubation that was later weaned off BiPAP and on oxygen, which was later weaned down to baseline 2 L/min. The patient, however, was found to have physical deconditioning requiring as well as physical therapy. She also had some acute confusion and agitation as well as hallucination, which was felt to be related to ICU psychosis. This improved and the patient's mental status went back to baseline. Due to generalized weakness, the patient was felt to be in need of further restorative therapy and arrangements were to be made to send the patient to either inpatient rehab or [facility] facility. The patient was finally placed to a [facility] facility, but due to copay and coinsurance, which the patient could not afford. She elected to be discharged home in line with the patient's relatives desire. I did have a discussion with the patient about the possibility of moving in with one of the daughters, but she says she cannot. She can only go home. At this point, the patient was discharged home with home health RN with PT. The patient also was felt to have jowt-ty-tsjxeryl protein-calorie malnutrition and was treated with oral dietary supplement with improvement. CONDITION AT DISCHARGE: Improved. DISCHARGE MEDICATIONS: 1. Albuterol HFA 2 puffs inhalation p.r.n. for shortness of breath. 2. Furosemide 20 mg p.o. daily p.r.n. for swelling. 3. Advair 230/21 two puffs b.i.d. 4. Spiriva 18 mcg daily. 5. Daliresp 250 mcg daily. 6. Prednisone tapering course. 7. Ipratropium/albuterol sulfate 3 mL nebulization q.4 hours p.r.n. for shortness of breath. 8. Of note, the patient completed antibiotic therapy during this hospitalization. FOLLOWUP: Follow up with PCP within 5 days of discharge and with assembler caterpillar spider in 10 days. This discharge took more than 38 minutes. Job ID: [id number]
[2018-08-14 18:40] VITALS: BP 119/63; TEMP 97.9
== END 2018-08-14 19:59 | disposition home health service (06) | DRG 208 ==
LOC: ERS 14:47 → CCU 18:26 → 2NO 08-12 09:34
PROVIDERS: ADMIT Internal Medicine; ATTEND Internal Medicine
PROC: 5A1945Z Respiratory Ventilation, 24-96 Consecutive Hours (ICD-10-PCS; principal; 2018-08-03)
PROC: 3E033XZ Introduction of Vasopressor into Peripheral Vein, Percutaneous Approach (ICD-10-PCS; 2018-08-03)
PROC: 5A09457 Assistance with Respiratory Ventilation, 24-96 Consecutive Hours, Continuous Positive Airway Pressure (ICD-10-PCS; 2018-08-08)
DX: J96.21 Acute and chronic respiratory failure with hypoxia (principal); G93.41 Metabolic encephalopathy; J44.1 Chronic obstructive pulmonary disease with (acute) exacerbation; Z68.1 Body mass index [BMI] 19.9 or less, adult; E44.1 Mild protein-calorie malnutrition; E87.6 Hypokalemia; D64.9 Anemia, unspecified; Z99.81 Dependence on supplemental oxygen; I95.9 Hypotension, unspecified; R53.81 Other malaise; F29 Unspecified psychosis not due to a substance or known physiological condition; R25.1 Tremor, unspecified; Z79.51 Long term (current) use of inhaled steroids; Z87.891 Personal history of nicotine dependence; Z79.899 Other long term (current) drug therapy; Z88.1 Allergy status to other antibiotic agents
CPT/HCPCS: 36415; 36556; 51702; 71045; 80048; 80053; 80069; 81003; 82550; 82805; 83605; 83735; 83880; 84484; 85007; 85025; 85027; 87040; 87086; 93005; 94002; 94003; 94640; 94660; 96365; 96366; 96368; 96375; 99292; J0456; J0696; J1650; J2060; J2250; J2704; J2920; J3010; J3490; J7050; J7512; J7620; S0028

== ENCOUNTER 2018-09-24 15:37 | Inpatient (IN) | payer MEDICARE ==
[2018-09-24] MEDS ORDERED: Albuterol Sulfate 2.5 mg/0.5 ml Neb ONE (16:29)
[2018-09-24] MEDS ORDERED: Albuterol Sulfate 2.5 mg/3 ml Neb ONE (16:30)
--- NOTE | 2018-09-24 17:15 | RAD ---
PORTABLE CHEST 1 VIEW: Date: 09/24/18 Time: 1610 hours HISTORY: Dyspnea. FINDINGS: Comparison made with exam of 08/06/18. There are changes of COPD. The heart size is normal. The aorta is tortuous. No lobar consolidation, p neumothoraces, or pleural effusions are seen. IMPRESSION: No acute process. POS: [facility]
[2018-09-24 17:26] LABS: #Lymphocytes 1.3 thou/uL (1.20-3.40); #Monocytes 0.5 thou/uL (0.11-0.59); #Neutrophils 7.6 thou/uL (1.40-6.50); %Basophils 0.1 % (0.0-1.0); %Eosinophils 0.2 % (0.0-10.0); %Lymphocytes 14.1 % (21.0-51.0); %Monocytes 4.8 % (0.0-10.0); %Neutrophils 80.8 % (42.0-75.0); Hemoglobin 12.3 g/dL (12.0-16.0); Mean Corpuscular HGB CONC 32.1 g/dL (32.0-36.0); Mean Corpuscular Hemoglobin 28.2 pg (27.0-31.0); Mean Corpuscular Volume 87.7 fL (78.0-98.0); Mean Platelet Volume 8.8 fL (7.4-10.4); Platelet Count 212 thou/uL (130-400); Red Blood Cell (RBC) Count 4.36 mill/uL (4.20-5.40); White Blood Cell (WBC) Count 9.4 thou/uL (4.8-10.8)
[2018-09-24] MEDS ORDERED: Magnesium 2 GM/50 ML BAG (IN WATER) ONE (17:37)
[2018-09-24] MEDS ORDERED: methylPREDNISolone Sod Succ/PF 125 MG/2 ML VIAL ONE (17:37)
[2018-09-24 17:47] LABS: ALT (SGPT) 14 U/L (8-55); AST (SGOT) 14 U/L (5-34); Albumin 4.1 g/dL (3.4-4.8); Alkaline Phosphatase 41 U/L (40-150); Anion Gap 13 mmol/L (10-20); BUN (Urea Nitrogen) 18 mg/dL (9.8-20.1); Bilirubin, Total 0.4 mg/dL (0.2-1.2); Calc. Creatinine Clearance 0 mL/min (70-130); Calcium 9.4 mg/dL (7.8-10.44); Carbon Dioxide 27 mmol/L (23-31); Chloride 101 mmol/L (98-107); Estimated GFR-MDRD Greater than 90; Globulin 2.3 g/dL (2.4-3.5); Glucose 135 mg/dL (83-110); Potassium 4.3 mmol/L (3.5-5.1); Protein, Total 6.4 g/dL (6.0-8.3); Sodium 137 mmol/L (136-145)
--- NOTE | 2018-09-24 19:49 | HP ---
PRIMARY CARE PHYSICIAN: Talita Waterman MD PRIMARY FINANCIAL ADVISOR: Janusz Bravo MD CHIEF COMPLAINT: Shortness of breath. HISTORY OF PRESENT ILLNESS: This is an 78-year-old white female with progressive COPD, last admitted last month when she was intubated and had a prolonged course of weaning her down to BiPAP and then finally being able to discharge her home on her home 2 L of oxygen. She reports that her chronic shortness of breath got severely worse yesterday and then progressed today. She had been using her breathing treatments, but it did not seem to be helping at all. She denied coughing to me. She eventually came into the emergency room and found to be in acute respiratory distress. The patient was given DuoNeb, saline, methylprednisolone, and magnesium sulfate and then put on BiPAP and breathing a little bit easier now, is still requiring the BiPAP, so she is being admitted to the hospital. PAST MEDICAL HISTORY: 1. COPD, on 2 L of home oxygen. 2. Chronic hypoxic respiratory failure. PAST SURGICAL HISTORY: Hysterectomy. SOCIAL HISTORY: The patient is and resides independently, accompanied by one of her three daughters. Former tobacco user, quit 15 years ago. No alcohol or illicit drug use. FAMILY HISTORY: Positive for diabetes mellitus type 2. ALLERGIES: LEVAQUIN CAUSES HALLUCINATIONS. CURRENT MEDICATIONS: 1. Vitamin D3 1000 units daily. 2. DuoNeb every 4 hours. 3. Budesonide nebulizer 0.5 mg, uncertain frequency. 4. Albuterol inhaler as needed. 5. Tramadol as needed for pain. 6. Valium as needed for anxiety. REVIEW OF SYSTEMS: CONSTITUTIONAL: No fevers. No chills. EYES: No double vision or blurred vision. ENT: No congestion, drainage, or sore throat. CARDIOVASCULAR: No chest pain, palpitations, or racing heart. PULMONARY: See HPI. GASTROINTESTINAL: No abdominal pain. No nausea or vomiting. No diarrhea or constipation. GENITOURINARY: No dysuria or hematuria. MUSCULOSKELETAL: No muscle aches or joint pain. SKIN: No rashes or other lesions noted. NEUROLOGIC: No numbness, tingling, or focal weakness. PHYSICAL EXAMINATION: VITAL SIGNS: Blood pressure 118/73, pulse 86, respirations 22, temperature 98.1, and O2 saturation 97% on BiPAP with 30% FiO2. GENERAL: This is a well-developed, elderly white female with mild respiratory distress, currently on BiPAP. HEENT: Eyes; pupils equal, round, and reactive to light. Oropharynx is clear without lesions, erythema, or exudate. NECK: Supple. No lymphadenopathy. No thyroid nodules or enlargement. HEART: Regular rate and rhythm. No murmurs, rubs, or gallops. LUNGS: She has tight breath sounds bilaterally with occasional wheeze. No crackles or rhonchi. ABDOMEN: Soft and nontender to palpation. Normoactive bowel sounds. No hepatosplenomegaly or other masses. EXTREMITIES: No clubbing, cyanosis, or edema. SKIN: No rashes or other lesions noted. NEUROLOGIC: Intact strength and sensation in all extremities. No facial droop. PSYCHIATRIC: Alert and oriented x3. Normal mood and affect. LABORATORY DATA: CBC within normal limits. Complete metabolic panel without any significant abnormalities. Troponins negative. Brain natriuretic peptide normal. IMAGING: Chest x-ray, I did review the chest x-ray done in the emergency room along with the radiologist's report. It does show some hyperexpanded lung russo with flattening of the diaphragms, but no infiltrates, no cardiomegaly, no pulmonary edema, no acute findings, and just chronic COPD changes. ASSESSMENT AND PLAN: 1. Chronic obstructive pulmonary disease exacerbation. The patient is currently requiring BiPAP. We will put her in the IMCU. We will continue DuoNebs q.6 hours scheduled and q.4 hours as needed. We will give Solu-Medrol and we will monitor the patient closely. We will get Pulmonology consult as well. 2. Acute on chronic respiratory failure with hypoxia. We will supplement as needed. 3. Gastrointestinal prophylaxis. We will put the patient on Protonix while she is on the steroids. 4. Deep venous thrombosis prophylaxis. We will put the patient on Lovenox and sequential compression devices while in bed. 5. Code status. I did discuss this with the patient. She is a full code. Should she be incapacitated, she states that her daughters would be her medical decision makers. Her daughter currently accompanying her is Sendy Rabago. Job ID: [id number]
[2018-09-24 20:06] VITALS: BMI 18.5
[2018-09-24] MEDS ORDERED: Ondansetron PF 4 MG/2 ML Vial IVP PRN (20:17)
[2018-09-24] MEDS ORDERED: Acetaminophen 325 MG TAB PO PRN (20:17)
[2018-09-24] MEDS ORDERED: Senokot S 8.6-50 MG TAB PO PRN (20:17)
[2018-09-24] MEDS ORDERED: Guaifenesin DM 100-10/5 ML UDCUP PO PRN (20:17)
[2018-09-24] MEDS ORDERED: Ondansetron ODT 4 MG TAB PO PRN (20:17)
[2018-09-24] MEDS ORDERED: Acetaminophen 650 MG Suppository PR PRN (20:17)
[2018-09-24] MEDS ORDERED: Lorazepam 2 MG/ML VIAL SLOW IVP PRN (20:17)
[2018-09-24] MEDS ORDERED: Sodium Chloride 0.9% 1,000 ML IV SCH (20:30)
[2018-09-25] MEDS: methylPREDNISolone Sod Succ 40 MG VIAL IVP SCH ×5 (00:25→23:35)
[2018-09-25 04:15] LABS: #Lymphocytes 0.4 thou/uL (1.20-3.40); #Neutrophils 4.6 thou/uL (1.40-6.50); %Basophils 0.3 % (0.0-1.0); %Eosinophils 0.1 % (0.0-10.0); %Lymphocytes 8.1 % (21.0-51.0); %Monocytes 0.4 % (0.0-10.0); %Neutrophils 91.2 % (42.0-75.0); Mean Corpuscular HGB CONC 32.1 g/dL (32.0-36.0); Mean Corpuscular Hemoglobin 28.2 pg (27.0-31.0); Mean Corpuscular Volume 87.9 fL (78.0-98.0); Mean Platelet Volume 8.8 fL (7.4-10.4); Platelet Count 186 thou/uL (130-400); RBC Distribution Width 14.1 % (11.5-14.5); Red Blood Cell (RBC) Count 3.91 mill/uL (4.20-5.40)
[2018-09-25 04:36] LABS: Anion Gap 10 mmol/L (10-20); BUN (Urea Nitrogen) 18 mg/dL (9.8-20.1); Calc. Creatinine Clearance 67 mL/min (70-130); Calcium 8.3 mg/dL (7.8-10.44); Carbon Dioxide 28 mmol/L (23-31); Chloride 104 mmol/L (98-107); Estimated GFR-MDRD Greater than 90; Glucose 136 mg/dL (83-110); Sodium 138 mmol/L (136-145)
--- NOTE | 2018-09-25 09:44 | CON ---
DATE OF CONSULTATION: 09/25/2018 REASON FOR CONSULTATION: COPD exacerbation. TIME SPENT: The following encompassed 70 minutes time, of that time, greater than 50% was spent with the patient and/or the patient's unit in the hospital. HISTORY OF PRESENT ILLNESS: Ms. Paredes is well known to me. She is an 78-year-old female with very severe COPD. She came to the hospital yesterday with increasing shortness of breath and was temporarily on BiPAP. She now feels better this morning and she said she is near her baseline. PAST MEDICAL HISTORY: 1. Severe COPD, requiring home oxygen. 2. Chronic hypoxic respiratory failure. PAST SURGICAL HISTORY: Hysterectomy. SOCIAL HISTORY: Quit smoking many years ago. Does not consume alcohol. ALLERGIES: LEVAQUIN. REVIEW OF SYSTEMS: Twelve-point review of systems is otherwise negative. CURRENT MEDICATIONS: 1. Prednisone 10 mg daily. 2. Spiriva 1 puff daily. 3. Daliresp 250 mcg daily. 4. DuoNeb every 4 hours. 5. Advair 230/21 two puffs twice daily. 6. ProAir as needed. PHYSICAL EXAMINATION: VITAL SIGNS: Temperature 99.2, pulse 75, respirations 24, O2 saturation 100% on 2 L. She is awake and alert, in no distress. HEENT: Unremarkable. NECK: No JVD. LUNGS: Clear, but diminished breath sounds bilaterally. No wheezing. CARDIAC: S1, S2. Regular. ABDOMEN: Soft, nontender. EXTREMITIES: No clubbing, cyanosis, or edema. LABORATORY DATA: White blood cell count 5, hematocrit 34.3, and platelet count 186. Sodium 138, potassium 4, chloride 104, CO2 of 28, BUN 18, creatinine 0.5, glucose 136. IMAGING STUDIES: Chest x-ray demonstrates hyperinflation without evidence of mass, effusion, or infiltrate. ASSESSMENT: 1. Chronic obstructive pulmonary disease with exacerbation. 2. Chronic hypercapnic and hypoxemic respiratory failure. PLAN: She can be transferred out to the medical floor. We will continue IV steroids and nebulization treatments. Job ID: [id number]
[2018-09-25] MEDS: Enoxaparin Sodium 40 MG/0.4 ML SYRINGE SC SCH (09:50)
--- NOTE | 2018-09-25 10:06 | PDOC.PN ---
- Subjective Encounter Start Date: 09/25/18 Encounter Start Time: 17:30 Subjective: Patient reports SOB much improved. Almost back to baseline. Still on 3.5L -: compared to home dose 2L O2. No chest pain. No cough. - Objective Resuscitation Status - Order Detail: 09/24/18 18:51 Resuscitation Status Routine Resuscitation Status: FULL: Full Resuscitation Discussed with: Patient MAR Reviewed: Yes Vital Signs & Weight: Vital Signs (12 hours) Temp Pulse Resp Pulse Ox 09/25/18 08:00 100 09/25/18 07:17 99.2 F 09/25/18 07:14 75 24 H 100 09/25/18 03:57 98.8 F 09/25/18 00:31 76 22 H 100 09/25/18 00:15 98.8 F 09/24/18 22:12 62 15 100 Weight Weight 104 lb 8 oz Most Recent Monitor Data Heart Rate from ECG 72 NIBP 123/71 NIBP BP-Mean 88 Respiration from ECG 15 SpO2 100 I&O: 09/24/18 09/25/18 09/26/18 06:59 06:59 06:59 Intake Total 825 Output Total 550 Balance 275 Result Diagrams: 09/25/18 03:52 09/25/18 03:52 Phys Exam - Physical Examination Constitutional: NAD HEENT: moist MMs Respiratory: no wheezing, no rales, no rhonchi tight breath sounds bilaterally, no increased WOB Cardiovascular: RRR Gastrointestinal: soft, positive bowel sounds Neurological: non-focal, moves all 4 limbs Psychiatric: normal affect, A&O x 3 Dx/Plan (1) COPD exacerbation Code(s): J44.1 - CHRONIC OBSTRUCTIVE PULMONARY DISEASE W (ACUTE) EXACERBATION Status: Acute Comment: off Bipap, near baseline per patient, continue IV steroids and nebs (2) Acute on chronic respiratory failure with hypoxemia Code(s): J96.21 - ACUTE AND CHRONIC RESPIRATORY FAILURE WITH HYPOXIA Status: Acute Comment: improving, weaning O2 as tolerated, not requiring Bipap anymore - Plan cont current plan of care, PT/OT, respiratory therapy, DVT proph w/lovenox, DVT proph w/SCDs stable to transfer to medical, possibly home tomorrow * . - Discharge Day Encounter end time: 17:45
[2018-09-26] MEDS: methylPREDNISolone Sod Succ 40 MG VIAL IVP SCH ×2 (05:15→11:21)
[2018-09-26] MEDS: Enoxaparin Sodium 40 MG/0.4 ML SYRINGE SC SCH (09:11)
--- NOTE | 2018-09-26 09:55 | PRG ---
DATE OF SERVICE: 09/26/2018 SUBJECTIVE: The patient feels better and wants to go home. OBJECTIVE: VITAL SIGNS: Temperature is 98.2, pulse 76, blood pressure 113/64, O2 saturation 100%. HEENT: Unremarkable. NECK: No JVD. LUNGS: Clear. CARDIAC: S1 and S2. Regular. ABDOMEN: Soft. EXTREMITIES: No edema. ASSESSMENT: Chronic obstructive pulmonary disease with exacerbation, which is better. PLAN: This patient is cleared to go home from my standpoint. She is currently on a dose of prednisone 10 mg a day at home. I would give her 40 mg a day for a week, then 20 mg a day for a week, then go back to her usual dose of 10 mg. She is not taking Spiriva as per home medication list. Instead, she is taking Incruse Ellipta 1 puff daily as a substitute for Spiriva. I have instructed her to continue the Incruse. treatments 4 times a day. Continue the Symbicort 2 puffs twice a day. I do not believe that she is on Advair as the home medication list says. She needs to follow up with me in 2 to 3 weeks. Job ID: [id number]
--- NOTE | 2018-09-26 12:07 | PDOC.PN ---
- Subjective Encounter Start Date: 09/26/18 Encounter Start Time: 12:50 Subjective: Patient feeling much better. Back to baseline. Able to breathe -: deeply today. Ready to go home. - Objective Resuscitation Status - Order Detail: 09/24/18 18:51 Resuscitation Status Routine Resuscitation Status: FULL: Full Resuscitation Discussed with: Patient ZEN Reviewed: Yes Vital Signs & Weight: Vital Signs (12 hours) Temp Pulse Resp Pulse Ox 09/26/18 11:27 98.5 F 09/26/18 07:46 98 09/26/18 07:38 98.2 F 09/26/18 07:26 99 09/26/18 07:24 77 16 99 09/26/18 04:00 98.3 F 09/26/18 00:18 103 H 20 100 Weight Admit Weight 104 lb 8 oz Weight 104 lb 8 oz Most Recent Monitor Data Heart Rate from ECG 83 NIBP 129/71 NIBP BP-Mean 90 Respiration from ECG 19 SpO2 100 I&O: 09/25/18 09/26/18 09/27/18 06:59 06:59 06:59 Intake Total 825 1294 Output Total 550 750 200 Balance 275 544 -200 Result Diagrams: 09/25/18 03:52 09/25/18 03:52 Phys Exam - Physical Examination Constitutional: NAD HEENT: moist MMs Respiratory: no wheezing, no rales, no rhonchi improved breath sounds bilaterally Cardiovascular: RRR Gastrointestinal: soft, positive bowel sounds Neurological: non-focal, moves all 4 limbs Psychiatric: normal affect, A&O x 3 Dx/Plan (1) COPD exacerbation Code(s): J44.1 - CHRONIC OBSTRUCTIVE PULMONARY DISEASE W (ACUTE) EXACERBATION Status: Acute Comment: off Bipap, near baseline per patient, on IV steroids and nebs (2) Acute on chronic respiratory failure with hypoxemia Code(s): J96.21 - ACUTE AND CHRONIC RESPIRATORY FAILURE WITH HYPOXIA Status: Acute Comment: improving, weaning O2 as tolerated, not requiring Bipap anymore - Plan cont current plan of care cleared for d/c home by Dr. Bravo, steroid taper, o/p followup * . - Discharge Day Encounter end time: 13:10
[2018-09-26 14:47] VITALS: BP 145/72
[2018-09-26 15:26] VITALS: TEMP 98.4
--- NOTE | 2018-09-27 01:24 | DIS ---
DATE OF ADMISSION: 09/24/2018 DATE OF DISCHARGE: 09/26/2018 PRIMARY CARE PHYSICIAN: Talita Waterman MD PRIMARY POCKET CLOSER: Janusz Bravo MD REASON FOR ADMISSION: Exacerbation of COPD. DIAGNOSES AT DISCHARGE: 1. Chronic obstructive pulmonary disease exacerbation. 2. Acute on chronic respiratory failure with hypoxemia. PROCEDURES: None. CONSULTATIONS: Pulmonology, Dr. Bravo. SUMMARY OF HOSPITAL COURSE: This is an 78-year-old white female with progressive severe COPD, on home oxygen, was intubated last month and had a prolonged wean down BiPAP afterward. She has chronic shortness of breath, it got severely worse the day before admission. She came in, was found to be in acute respiratory distress, so given DuoNeb, methylprednisolone, magnesium sulfate, and then put on BiPAP. The patient improved quickly in the hospital. Dr. Bravo was consulted. We did continue the steroids and inhalers and were able to wean her off BiPAP quickly and then she improved over the next 2 days. On day of discharge, the patient was back to her baseline, was cleared for discharge by Dr. Bravo. DISCHARGE MANAGEMENT: Location: Discharged home. Activity: As tolerated. Diet: Regular diet with Mighty shakes or other supplements twice a day. Therapy: She is to resume occupational, physical therapy at home with [facility]. Equipment: She is to continue nebulizer treatments and oxygen at home. Followup: Follow up with Dr. Bravo in 2 to 3 weeks. DISCHARGE MEDICATIONS: 1. Prednisone 10 mg tabs, 4 tabs daily for 1 week followed by 2 tabs daily for 1 week and then back down to 10 mg daily after that, 60 tablets dispensed. The rest of her home medication list in the computer was actually not accurate. The patient is to resume her Incruse Ellipta one inhalation daily. I have actually sent a new prescription of this to pharmacy in case she is out. 2. Continue DuoNeb as needed. 3. Continue Symbicort 2 puffs twice a day. 4. Continue Daliresp 250 mcg daily. 5. Furosemide 20 mg as needed for edema. Arranging the details of this discharge took 32 minutes. Job ID: [id number]
== END 2018-09-26 15:46 | disposition home health service (06) | DRG 189 ==
LOC: ERS 15:37 → IMCU/EMU 17:54
PROVIDERS: ADMIT Emergency Medicine; ATTEND Emergency Medicine
PROC: 5A09457 Assistance with Respiratory Ventilation, 24-96 Consecutive Hours, Continuous Positive Airway Pressure (ICD-10-PCS; principal; 2018-09-24)
DX: J96.21 Acute and chronic respiratory failure with hypoxia (principal); J44.1 Chronic obstructive pulmonary disease with (acute) exacerbation; Z99.81 Dependence on supplemental oxygen; Z90.710 Acquired absence of both cervix and uterus; Z88.1 Allergy status to other antibiotic agents; Z79.51 Long term (current) use of inhaled steroids; Z79.899 Other long term (current) drug therapy
CPT/HCPCS: 36415; 71045; 80048; 80053; 83880; 84484; 85025; 93005; 94640; 94644; 94660; 94760; 96365; 96375; J1650; J2920; J2930; J3475; J7611; J7620

== ENCOUNTER 2018-11-08 12:34 | Outpatient (CLI) | payer MEDICARE ==
[2018-11-08 13:30] LABS: Actual Bicarbonate (HCO3a) 31.6 mEq/L (22-28); Analyzer IN Cardio OR; Base Excess (BEa) 5.9 mEq/L (-2.0 to +3.0); CO2 Tension 50.2 mmHg (35.0-45.0); Calcium, Ionized 1.18 mmol/L (1.12-1.30); Carboxyhemoglobin (COHb) 0.7 gm% (0.0-3.0); Potassium - ABG Lab 4.28 mmol/L (3.70-5.30); pH, Arterial 7.42 (7.35-7.45)
[2018-11-08 15:12] LABS: Puncture Site LR
== END 2018-11-08 12:35 | disposition home or self-care (01) ==
LOC: CP 12:34
PROVIDERS: ATTEND Internal Medicine Critical Care Medicine
DX: J44.9 Chronic obstructive pulmonary disease, unspecified (principal)
CPT/HCPCS: 82805

== ENCOUNTER 2018-11-09 13:06 | Emergency (ER) | payer MEDICARE ==
[2018-11-09 14:01] LABS: Hemoglobin 12.1 g/dL (12.0-16.0); Mean Corpuscular HGB CONC 31.3 g/dL (32.0-36.0); Mean Corpuscular Hemoglobin 27.7 pg (27.0-31.0); Mean Corpuscular Volume 88.5 fL (78.0-98.0); Mean Platelet Volume 8.5 fL (7.4-10.4); Platelet Count 215 thou/uL (130-400); RBC Distribution Width 13.8 % (11.5-14.5); Red Blood Cell (RBC) Count 4.38 mill/uL (4.20-5.40); White Blood Cell (WBC) Count 8.4 thou/uL (4.8-10.8)
[2018-11-09 14:14] LABS: Band 6 % (5-11); Lymphocytes 4 % (21-51); MDiff Complete? YES; Neutrophil 88 % (42-75); Platelet Morphology Comment Appears Adequate; RBC Morphology Normal; Reactive Lymphocytes 2 % (0-10)
--- NOTE | 2018-11-09 15:33 | RAD ---
SINGLE VIEW OF THE CHEST: 11/09/18 COMPARISON: 09/24/18 HISTORY: Difficulty breathing and dyspnea. FINDINGS: Single view of the chest shows a normal sized cardiomediastinal silhouette. Hyperexpansion of lungs m ay be secondary to COPD. There is no evidence of consolidation, mass, or pleural effusion. Biapical s carring is seen. IMPRESSION: No evidence of acute cardiopulmonary disease. POS: [facility]
--- NOTE | 2018-11-10 17:01 | EKG ---
Test Reason : Blood Pressure : / mmHG Vent. Rate : 085 BPM Atrial Rate : 086 BPM P-R Int : 000 ms QRS Dur : 090 ms QT Int : 358 ms P-R-T Axes : 000 047 087 degrees QTc Int : 426 ms Normal sinus rhythm Nonspecific ST and T wave abnormality Abnormal ECG Confirmed by CHELO BARRIENTOS, MANDA ([id number]), publications editor ZITA SMITH ([id number]) on 11/10/2018 5:01:02 PM Referred By: Confirmed By:MANDA WHITNEY MD
== END 2018-11-09 16:05 | disposition home or self-care (01) ==
LOC: ERS 13:06
DX: J44.1 Chronic obstructive pulmonary disease with (acute) exacerbation (principal); J44.9 Chronic obstructive pulmonary disease, unspecified; Z87.891 Personal history of nicotine dependence
CPT/HCPCS: 36415; 71045; 83880; 84484; 85025; 93005

== ENCOUNTER 2019-02-24 13:53 | Emergency (ER) | payer MEDICARE ==
[~2019-02-24 13:53] MED LIST: ISOVUE-370 76%-LOCM 1 ML ONE
[2019-02-24 15:06] LABS: #Lymphocytes 0.7 thou/uL (1.20-3.40); #Monocytes 0.2 thou/uL (0.11-0.59); %Basophils 0.4 % (0.0-1.0); %Eosinophils 0.1 % (0.0-10.0); %Lymphocytes 11.9 % (21.0-51.0); %Monocytes 3.4 % (0.0-10.0); %Neutrophils 84.3 % (42.0-75.0); Hemoglobin 12.3 g/dL (12.0-16.0); Mean Corpuscular HGB CONC 31.9 g/dL (32.0-36.0); Mean Corpuscular Hemoglobin 27.8 pg (27.0-31.0); Mean Corpuscular Volume 87.4 fL (78.0-98.0); Mean Platelet Volume 9.4 fL (7.4-10.4); Platelet Count 195 thou/uL (130-400); RBC Distribution Width 13.3 % (11.5-14.5); Red Blood Cell (RBC) Count 4.41 mill/uL (4.20-5.40); White Blood Cell (WBC) Count 5.9 thou/uL (4.8-10.8)
[2019-02-24] MEDS ORDERED: Morphine 2 MG/ML SYRINGE ONE ×2 (15:07→15:08)
[2019-02-24] MEDS ORDERED: Ondansetron PF 4 MG/2 ML Vial ONE (15:07)
[2019-02-24 15:36] LABS: ALT (SGPT) 13 U/L (8-55); AST (SGOT) 22 U/L (5-34); Alkaline Phosphatase 46 U/L (40-110); Anion Gap 10 mmol/L (10-20); BUN (Urea Nitrogen) 16 mg/dL (9.8-20.1); Bilirubin, Total 0.3 mg/dL (0.2-1.2); Calc. Creatinine Clearance 0 mL/min (70-130); Calcium 9.1 mg/dL (7.8-10.44); Carbon Dioxide 33 mmol/L (23-31); Chloride 99 mmol/L (98-107); Estimated GFR-MDRD Greater than 90; Globulin 2.5 g/dL (2.4-3.5); Glucose 140 mg/dL (83-110); Lipase 28 U/L (8-78); Potassium 4.8 mmol/L (3.5-5.1); Protein, Total 6.5 g/dL (6.0-8.3); Sodium 137 mmol/L (136-145)
[2019-02-24 16:47] LABS: Bilirubin Negative (Negative); Blood, Urine Negative (Negative); Clarity Clear (Clear); Glucose, Urine (Dipstick) Normal (Negative); Leukocyte Negative Leu/uL (Negative); Nitrite Negative (Negative); Protein, Urine (Dipstick) Negative (Neg-Trace); Urobilinogen Normal mg/dL (Less than 2)
--- NOTE | 2019-02-24 16:49 | CT ---
CTA CHEST WITH IV CONTRAST AND 3D POST PROCESSING CTA ABDOMEN WITH IV CONTRAST AND 3D POST PROCESSING: History: Chest pain, back pain, upper abdominal pain. FINDINGS: There are vascular calcifications without evidence of aneurysmal dilatation of the thoracoabdominal a berta. The aorta is well opacified without intimal plaque to suggest dissection. The pulmonary artery vasculature is well opacified without filling defects to suggest pulmonary embolism. No pericardiac effusions are seen. There are emphysematous changes in the lungs without evidence of f ocal areas of consolidation, pneumothoraces, or masses. No free air or fluid is seen in the abdomen. The solid organs are grossly unremarkable. Degenerative changes are present in the spine. IMPRESSION: No CT evidence of aortic aneurysm/dissection or pulmonary embolism. POS: [facility]
[2019-02-24 18:01] LABS: Troponin I Less than 0.010 ng/mL (< 0.028)
== END 2019-02-24 18:17 | disposition home or self-care (01) ==
LOC: ERS 13:53
DX: M54.5 Low back pain (principal); R10.32 Left lower quadrant pain; R10.31 Right lower quadrant pain; J44.9 Chronic obstructive pulmonary disease, unspecified; Z87.891 Personal history of nicotine dependence; Z79.899 Other long term (current) drug therapy; Z79.51 Long term (current) use of inhaled steroids
CPT/HCPCS: 36415; 71275; 72191; 74175; 80053; 81003; 83690; 84484; 85025; 87086; 93005; 94640; 96361; 96374; J2270; J2405; J7620; Q9966

== ENCOUNTER 2019-02-26 14:23 | Outpatient (CLI) | payer MEDICARE ==
--- NOTE | 2019-02-26 15:02 | RAD ---
Exam: Chest 2 views HISTORY:Dyspnea Comparison: 11/09/2018 FINDINGS: Lungs: Hyperinflated, lucent lungs, consistent with pulmonary emphysema. Biapical pleural irregularit y and thickening. Cardiac silhouette:Stable Pulmonary vessels: Normal Pleural Spaces: Clear Pneumothorax: None Osseous abnormalities: None of acuity. IMPRESSION: COPD
== END 2019-02-26 14:24 | disposition home or self-care (01) ==
LOC: RAD 14:23
PROVIDERS: ATTEND Internal Medicine Critical Care Medicine
DX: R06.00 Dyspnea, unspecified (principal); J44.9 Chronic obstructive pulmonary disease, unspecified
CPT/HCPCS: 71046

== ENCOUNTER 2019-03-17 21:31 | Inpatient (IN) | payer MEDICARE ==
[~2019-03-17 21:31] MED LIST changes: -ISOVUE-370 76%-LOCM 1 ML ONE; +Iopamidol 370 76% 100 ML VIAL ONE
[2019-03-17] MEDS ORDERED: Lorazepam 2 MG/ML VIAL ONE (21:48)
[2019-03-17] MEDS ORDERED: Magnesium 2 GM/50 ML BAG (IN WATER) ONE (21:49)
[2019-03-17] MEDS ORDERED: methylPREDNISolone Sod Succ/PF 125 MG/2 ML VIAL ONE (21:49)
[2019-03-17 21:57] LABS: #Basophils 0.1 thou/uL (0.0-0.2); #Lymphocytes 3.9 thou/uL (1.20-3.40); #Monocytes 1.1 thou/uL (0.11-0.59); #Neutrophils 5.8 thou/uL (1.40-6.50); %Basophils 0.8 % (0.0-1.0); %Eosinophils 0.4 % (0.0-10.0); %Lymphocytes 36.1 % (21.0-51.0); %Monocytes 10.2 % (0.0-10.0); %Neutrophils 52.7 % (42.0-75.0); Hemoglobin 12.8 g/dL (12.0-16.0); Mean Corpuscular HGB CONC 31.9 g/dL (32.0-36.0); Mean Corpuscular Hemoglobin 27.8 pg (27.0-31.0); Mean Corpuscular Volume 87.1 fL (78.0-98.0); Mean Platelet Volume 8.8 fL (7.4-10.4); Platelet Count 253 thou/uL (130-400); RBC Distribution Width 13.5 % (11.5-14.5); White Blood Cell (WBC) Count 10.9 thou/uL (4.8-10.8)
--- NOTE | 2019-03-17 22:00 | RAD ---
PORTABLE CHEST ONE VIEW: Date: 03-17-19 Time: 9:30 p.m. History: Chest pain, COPD. Dyspnea. FINDINGS/IMPRESSION: Comparison made with exam of 02-26-19. Changes of COPD are again seen. The heart size is normal. No lobar consolidation, pneumothoraces or p leural effusions are identified. POS: [facility]
[2019-03-17] MEDS ORDERED: cefTRIAXone\\ROCEPHIN 2 GM VIAL ONE (22:16)
[2019-03-17 22:20] LABS: Analyzer IN Cardio ER; Base Excess (BEa) 5.5 mEq/L (-2.0 to +3.0); CO2 Tension 55.4 mmHg (35.0-45.0); Calcium, Ionized 1.23 mmol/L (1.12-1.30); Carboxyhemoglobin (COHb) 0.2 gm% (0.0-3.0); Hemoglobin (Hb) 12.9 g/dL (12.0-16.0); O2 Tension (PaO2) 81.9 mmHg (> 60.0); Potassium - ABG Lab 3.87 mmol/L (3.70-5.30); pH, Arterial 7.38 (7.35-7.45)
[2019-03-17 22:22] LABS: Puncture Site R RADIAL
[2019-03-17 22:23] LABS: ALT (SGPT) 14 U/L (8-55); AST (SGOT) 15 U/L (5-34); Albumin 4.2 g/dL (3.4-4.8); Alkaline Phosphatase 83 U/L (40-110); Anion Gap 9 mmol/L (10-20); BUN (Urea Nitrogen) 17 mg/dL (9.8-20.1); Bilirubin, Total 0.4 mg/dL (0.2-1.2); CK (CPK) 38 U/L (29-168); Calc. Creatinine Clearance 0 mL/min (70-130); Calcium 9.1 mg/dL (7.8-10.44); Carbon Dioxide 33 mmol/L (23-31); Chloride 99 mmol/L (98-107); Estimated GFR-MDRD Greater than 90; Globulin 2.2 g/dL (2.4-3.5); Glucose 147 mg/dL (83-110); Lipase 24 U/L (8-78); Magnesium 2.2 mg/dL (1.6-2.6); Protein, Total 6.4 g/dL (6.0-8.3); Sodium 137 mmol/L (136-145)
--- NOTE | 2019-03-17 23:44 | CT ---
CT PULMONARY ANGIOGRAM WITH IV CONTRAST AND 3D POST PROCESSING: History: COPD, dyspnea. FINDINGS: There is good contrast opacification of the pulmonary artery vasculature without filling defects to s uggest pulmonary embolism. The aorta is well opacified without aneurysm or dissection. No pleural eff usions are seen. There are emphysematous changes. No pneumothoraces, lobar consolidation, or lung nod ules are noted. There are degenerative changes of the spine. There is a 7 mm low density lesion in th e left lobe of the thyroid gland. IMPRESSION: No CT evidence of pulmonary embolism. POS: [facility]
[2019-03-18] MEDS ORDERED: Dextrose 5 %-0.45 % NaCl 1,000 ML IV SCH (01:15)
[2019-03-18] MEDS ORDERED: PROVENTIL INHALER 6.7 G (200 INHALATIONS) INH PRN (02:25)
[2019-03-18] MEDS ORDERED: Diabetic Tussin 200 MG/10 ML UDCUP PO PRN (02:25)
[2019-03-18] MEDS ORDERED: Ondansetron PF 4 MG/2 ML Vial IVP PRN (02:25)
[2019-03-18] MEDS ORDERED: Benzonatate 100 MG CAP PO PRN (02:25)
[2019-03-18] MEDS ORDERED: hydrALAZINE 20 MG/ML VIAL SLOW IVP PRN (02:25)
[2019-03-18] MEDS ORDERED: Ondansetron ODT 4 MG TAB PO PRN (02:25)
--- NOTE | 2019-03-18 03:36 | HP ---
PRIMARY CARE PROVIDER: Dr. Talita Waterman. PRIMARY MARINE SURVEYOR: Dr. Janusz Bravo. CHIEF COMPLAINT: Shortness of breath. HISTORY OF PRESENT ILLNESS: This is an 78-year-old female, who initially presented to [facility] Emergency Department complaining of severe shortness of breath, worsening in the early learning teacher hours on 03/17/2019. The patient with significant history of chronic obstructive pulmonary disease and chronic hypoxic respiratory failure on 2 L/minute by nasal cannula continuously at home. The patient took her home nebulized therapy at approximately 1800 hours on 03/17/2019 without relief. The patient was recently treated with azithromycin by her jewel oliving machine operator over the last 5 days. The patient states her symptoms progressed and was unable to continue treatment at home. The patient admitted some chest pain with deep inspiration, persistent cough, and severe shortness of breath. In the emergency room, the patient was noted with severe respiratory distress and managed initially with IV Solu-Medrol, magnesium sulfate, Ativan, Rocephin, DuoNeb, and intravenous normal saline. The patient was also placed on BiPAP, noninvasive mechanical ventilation due to persistent hypoxia and respiratory distress. Chest imaging was performed without evidence of an acute infiltrate. The patient was transferred to the intermediate care unit for further evaluation. PAST MEDICAL HISTORY: 1. Chronic hypoxic hypercapnic respiratory failure, on oxygen supplementation at 2 L/minute by nasal cannula continuously. 2. Chronic obstructive pulmonary disease, oxygen dependent. 3. Remote tobacco use. PAST SURGICAL HISTORY: Status post hysterectomy. CURRENT MEDICATIONS: 1. ProAir HFA 2 puffs inhaled q.4 hours p.r.n. 2. Symbicort 160/4.5 mcg one puff inhaled b.i.d. 3. Prednisone 10 mg p.o. daily. 4. DuoNeb 3 mL nebulized q.4 hours p.r.n. 5. Incruse 62.5 mcg one inhalation daily. ALLERGIES: TO LEVAQUIN. FAMILY HISTORY: Positive for diabetes mellitus type 2. SOCIAL HISTORY: , residing independently in the [place], [place] area. Three daughters. Quit tobacco use approximately 15 years prior to this evaluation. No alcohol or illicit drug use. REVIEW OF SYSTEMS: Unobtainable due to patient on BiPAP noninvasive mechanical ventilation. PHYSICAL EXAMINATION: VITAL SIGNS: On admission, blood pressure 164/102, pulse 110, respiratory rate 24, temperature 98.3 degrees Fahrenheit, and O2 saturation 100% on BiPAP noninvasive mechanical ventilation. GENERAL APPEARANCE: This is an 78-year-old female, frail appearing, in moderate respiratory distress. HEENT: Pupils are equal, round, reactive to light and accommodation. Extraocular muscles are intact. No scleral icterus. No conjunctival injection. Nares patent. OP is clear. BiPAP face mask in appropriate positioning. NECK: Supple. No cervical adenopathy. No thyromegaly. No carotid bruits. No JVD appreciated. Cervical spine with full active and passive range of motion. No meningeal signs noted. CHEST: Diminished breath sounds in the bases bilaterally. Expiratory wheezes appreciated. CARDIOVASCULAR EXAM: S1, S2 without noted murmur, rub, or gallop. ABDOMEN: Flat, soft, nontender, and nondistended. Bowel sounds are positive in all 4 quadrants. No palpable mass. No rebound or guarding appreciated. EXTREMITIES: Warm and dry with fair turgor. No clubbing, cyanosis, or asymmetric edema appreciated. Pulses palpable distally at the dorsalis pedis, posterior tibial, and popliteal arteries bilaterally. Capillary refill less than 2 seconds. NEUROLOGIC: Cranial nerves 2 through 12 are grossly intact. No focal or lateralizing signs appreciated. PERTINENT LABORATORY AND X-RAY FINDINGS: Sodium 137, potassium 4.0, chloride 99, CO2 of 33, BUN 17, creatinine 0.55, and glucose 147. Lactic acid level 0.9. Calcium 9.1, magnesium 2.2. LFTs within normal limits. Troponin negative x1. BNP 18. Lipase 24. CBC showed a white blood cell count of 10.9, hemoglobin 13, hematocrit 40, platelet count 253 with normal differential. D-dimer 1.19. ABG dated 03/17/2019 at 2214 hours showed a pH 7.38, pCO2 of 55, PO2 of 82, bicarbonate 32, O2 saturation 96% on 28% FiO2 with BiPAP noninvasive mechanical ventilation. Influenza A and B antigen dated 03/17/2019, negative. Portable chest x-ray dated 03/17/2019, showed chronic hyperinflation without acute infiltrate. CT angiogram of the chest dated 03/17/2019 showed no evidence for pulmonary embolus. Emphysematous changes bilaterally. EKG dated 03/17/2019 by my interpretation shows sinus tachycardia with heart rates in the 110s. Attenuated R-waves noted in the precordial leads. Peak T-waves noted in V3 and V4. Normal axis. Baseline artifact. ASSESSMENT AND PLAN: 1. Acute on chronic hypoxic hypercapnic respiratory failure secondary to #2. Continue BiPAP noninvasive mechanical ventilation. See #2 below for full management details. 2. Chronic obstructive pulmonary disease exacerbation. Continue Solu-Medrol 40 mg IV q.6 hours with additional Symbicort 2 puffs inhaled b.i.d. Continue Rocephin 2 g IV q.24 hours. Continue DuoNeb q.4 hours. Consult Pulmonology Service in the a.m. 3. Hyperglycemia. Suspect secondary to steroid influence. Continue serial glucose monitoring. Check A1c level in the a.m. 4. Prophylaxis. SCDs while in bed. Pepcid 20 mg IV q.12 hours. CODE STATUS: Full. Surrogate medical decision maker is patient's daughter. Job ID: [id number]
[2019-03-18] MEDS: methylPREDNISolone Sod Succ 40 MG VIAL IVP SCH ×4 (05:57→23:57)
[2019-03-18] MEDS ORDERED: Ipratropium Bromide 2.5 ml Neb NEB SCH (06:00)
[2019-03-18 07:09] LABS: Anion Gap 10 mmol/L (10-20); BUN (Urea Nitrogen) 16 mg/dL (9.8-20.1); Calc. Creatinine Clearance 48 mL/min (70-130); Calcium 8.3 mg/dL (7.8-10.44); Carbon Dioxide 29 mmol/L (23-31); Chloride 101 mmol/L (98-107); Estimated GFR-MDRD Greater than 90; Glucose 191 mg/dL (83-110); Potassium 4.4 mmol/L (3.5-5.1); Sodium 136 mmol/L (136-145)
[2019-03-18 08:54] LABS: Hemoglobin 11.2 g/dL (12.0-16.0); Mean Corpuscular HGB CONC 32.6 g/dL (32.0-36.0); Mean Corpuscular Hemoglobin 28.4 pg (27.0-31.0); Mean Corpuscular Volume 87.1 fL (78.0-98.0); Mean Platelet Volume 9.1 fL (7.4-10.4); Platelet Count 182 thou/uL (130-400); RBC Distribution Width 13.4 % (11.5-14.5); Red Blood Cell (RBC) Count 3.96 mill/uL (4.20-5.40); White Blood Cell (WBC) Count 3.5 thou/uL (4.8-10.8)
[2019-03-18] MEDS ORDERED: FLU VACC TS2019-20(65YR UP)/PF 180 MCG/0.5 ML SYRINGE IM ONE (09:00)
[2019-03-18] MEDS ORDERED: Non-Formulary Item 1 EACH (Umeclidinium Bromide [Incruse Ellipta] 1 INH) IH SCH (09:00)
[2019-03-18] MEDS ORDERED: Prevnar 13-Val Conj/PF 0.5 ML SYRINGE IM ONE (09:00)
[2019-03-18] MEDS ORDERED: Non-Formulary Item 1 EACH (Budesonide-Formoterol [Symbicort 160-4.5] 1 PUFF) INH SCH (09:00)
[2019-03-18 09:43] LABS: Eosinophils 2 % (0-10); Lymphocytes 15 % (21-51); MDiff Complete? YES; Neutrophil 83 % (42-75); Platelet Morphology Comment Appears Adequate; Polychromasia SLIGHT = 2-3 cells (100X) (0-2/hpf)
[2019-03-18] MEDS: Acetaminophen 500 MG TAB PO PRN ×2 (10:36→21:07)
[2019-03-18] MEDS: Famotidine/PF 20 mg/2ml Vial SLOW IVP SCH ×2 (10:36→21:06)
[2019-03-18] MEDS: Mometasone/Formoterol 120 PUFF INHALER INH SCH ×2 (10:38→19:20)
[2019-03-18] MEDS: Simethicone Chewable 80 MG TAB PO SCH ×2 (18:38→21:06)
[2019-03-18] MEDS: cefTRIAXone\\ROCEPHIN 2 GM in Sodium Chloride 0.9% 100 ML IVPB SCH ×2 (21:05→21:11)
--- NOTE | 2019-03-18 21:54 | PDOC.EVN ---
Event Note - Event Note Event Note: Patient seen and examined. SOB at the time of the exam. She was just up to the toilet. She has had prior admissions. She has had prior intubation. She has very diminished throughout both lungs. No rales. On oxygen, steroids, bronchodilators, mucolytics, antibiotics. Off Bipap and on NC.
--- NOTE | 2019-03-19 00:34 | CON ---
DATE OF CONSULTATION: HISTORY OF PRESENT ILLNESS: Denise Paredes is an 78-year-old female, followed by Dr. Bravo with COPD. She has been complaining of abdominal fullness and chest congestion for several days last week. An antibiotic was called in. She subsequently presented to the hospital and has subsequently been admitted. She says she feels about the same, maybe a little better than when she was admitted. PAST MEDICAL HISTORY: Remarkable for; 1. COPD with chronic home O2 use. 2. History of hysterectomy. FAMILY HISTORY: Negative for lung disease in early age. MEDICATIONS: Prior to admission, she was on; 1. ProAir. 2. Symbicort. 3. Prednisone 10 mg. 4. Nebulizer. 5. Incruse. ALLERGIES: SHE REPORTS INTOLERANCE TO LEVAQUIN. FAMILY HISTORY: Positive for diabetes. SOCIAL HISTORY: She has not smoked in 15 years. She is not a drinker. REVIEW OF SYSTEMS: Otherwise completely negative. Her only complaint is abdominal fullness and tight feeling around her chest since she became short of breath. PHYSICAL EXAMINATION: GENERAL: She is in no distress. She is able to talk in complete sentences. VITAL SIGNS: She is afebrile. Heart rate is 91, respiratory rates in the 20s, blood pressure 116/61. HEAD AND NECK: Unremarkable. No lymphadenopathy is palpated. LUNGS: Remarkable for distant breath sounds with wheezing. Her expiratory phase was an overly long. HEART: Regular rhythm. ABDOMEN: Soft and nontender. No masses. EXTREMITIES: Without clubbing, cyanosis, or edema. LABORATORY DATA: White count 3.5, hemoglobin 11.2, platelets 182. Electrolytes are normal. Creatinine is 0.5. Blood gas last night 7.38, CO2 of 55, and PO2 81. CT pulmonary angiogram was done showing apical bullous disease, 7 mm thyroid nodule was seen. IMPRESSION: 1. Chronic obstructive pulmonary disease exacerbation. 2. Abdominal complaints, likely secondary to aerophagia. I have added simethicone. 3. Chronic hypercarbic and hypoxemic respiratory failure, on home oxygen. 4. Chest tightness, most likely secondary to her bronchospasm and muscle discomfort. I will notify Dr. Bravo of patient's admission in the morning. I would be happy to follow the other physicians caring for. Job ID: [id number] 50 minute consult with 50% time spent on unit coordinating care MTDD
[2019-03-19] MEDS: methylPREDNISolone Sod Succ 40 MG VIAL IVP SCH ×4 (05:46→23:55)
[2019-03-19] MEDS: Simethicone Chewable 80 MG TAB PO SCH ×4 (07:07→20:26)
[2019-03-19] MEDS: Mometasone/Formoterol 120 PUFF INHALER INH SCH ×2 (07:52→18:51)
--- NOTE | 2019-03-19 09:05 | PRG ---
DATE OF SERVICE: 03/19/2019 SUBJECTIVE: She is off the BiPAP this morning. She is feeling better. OBJECTIVE: VITAL SIGNS: Temperature 97.4, pulse 94, respiratory rate 21, O2 saturation 98% on 2 L, and blood pressure 122/82. HEENT: Unremarkable. NECK: No adenopathy or JVD. LUNGS: Distant, but clear breath sounds. CARDIAC: S1, S2. Regular. ABDOMEN: Soft. EXTREMITIES: No edema. LABORATORY DATA: PH 7.3, pCO2 of 55, pO2 of 82. White blood cell count 3.5, hematocrit 34.5, and platelet count 182. Sodium 136, potassium 4.4, BUN 16, creatinine 0.5, and glucose 191. ASSESSMENT: Chronic obstructive pulmonary disease with exacerbation. Chronic hypoxic and hypercapnic respiratory failure. PLAN: In addition to the steroids, nebs, and antibiotics, I am going to get her qualify for a Trilogy ventilator at home. We have been awaiting a pCO2 greater than 52 and her number was 55. I am ordering home non-invasive ventilation for night time and as needed daytime use. A traditional home BiPAP would be insufficient for this. Job ID: [id number] MTDD
[2019-03-19] MEDS ORDERED: Lorazepam 2 MG/ML VIAL SLOW IVP PRN (09:48)
[2019-03-19] MEDS: Famotidine/PF 20 mg/2ml Vial SLOW IVP SCH ×2 (09:56→20:25)
--- NOTE | 2019-03-19 10:52 | PRG ---
DATE OF SERVICE: 03/19/2019 voided Job ID: [id number] MTDD
--- NOTE | 2019-03-19 14:46 | PDOC.HOSPP ---
- Subjective Subjective: Up and down a little. Has remained tachycardic and rate has been 110-130. EKG confirmed NSR. Breathing seems to be a little better. She has had some mild confusion at times. She also reports some mid abdominal discomfort that has been present for a while. - Objective Vital Signs & Weight: Vital Signs (12 hours) Temp Pulse Pulse Pulse Resp BP BP 03/19/19 14:08 117 H 25 H 03/19/19 12:00 97.6 F 03/19/19 11:30 126 H 119 H 127/83 111/76 03/19/19 10:13 122 H 26 H 03/19/19 07:52 03/19/19 07:49 94 21 H 03/19/19 07:40 03/19/19 07:00 97.4 F L 03/19/19 03:34 97.8 F Pulse Ox Pulse Ox Pulse Ox 03/19/19 14:08 03/19/19 12:00 03/19/19 11:30 92 L 96 03/19/19 10:13 96 03/19/19 07:52 98 03/19/19 07:49 97 03/19/19 07:40 95 03/19/19 07:00 03/19/19 03:34 Weight Admit Weight 84 lb 8 oz Weight 84 lb 8 oz Most Recent Monitor Data Heart Rate from ECG 105 NIBP 122/106 NIBP BP-Mean 111 Respiration from ECG 29 SpO2 88 I&O: 03/18/19 03/19/19 03/20/19 06:59 06:59 06:59 Intake Total 297 2120 Output Total 300 1900 Balance -3 220 Result Diagrams: 03/18/19 06:06 03/18/19 06:06 Hospitalist ROS - Medication Medications: Active Medications Generic Name Dose Route Start Last Admin Trade Name Freq PRN Reason Stop Dose Admin Acetaminophen 1,000 mg 03/18/19 02:25 03/18/19 21:07 Tylenol PO 500 mg Q6H PRN Administration Mild Pain (1-3) Albuterol/Ipratropium 3 ml 03/18/19 02:30 03/19/19 14:08 Duoneb NEB 3 ml [id number] JANENE Administration Famotidine 20 mg 03/18/19 09:00 03/19/19 09:56 Pepcid SLOW IVP 20 mg Q12HR JANENE Administration Ceftriaxone Sodium 2 gm/ 100 mls @ 200 mls/hr 03/18/19 22:00 03/18/19 21:11 Sodium Chloride IVPB Not Given Q24HR JANENE Lorazepam 0.5 mg 03/19/19 09:48 03/19/19 09:57 Ativan SLOW IVP 0.5 mg Q6H PRN Administration Anxiety/Agitation Methylprednisolone Sodium Succinate 40 mg 03/18/19 06:00 03/19/19 13:43 Solu-Medrol IVP 40 mg Q6HR JANENE Administration Mometasone Furoate/Formoterol Fumar 1 puff 03/18/19 06:30 03/19/19 07:52 Dulera 200 Mcg/5 Mcg Inhaler INH 1 puff BID-RT JANENE Administration Simethicone 80 mg 03/18/19 19:00 03/19/19 12:28 Mylicon Chewable PO Not Given PCHS JANENE - Exam General Appearance: awake alert General - other findings: Generally thin Heart: RRR, no murmur, no gallops, no rubs, normal peripheral pulses Heart - other findings: Tachy Respiratory: CTAB Respiratory - other findings: Very diminished, but slightly improved from yesterday. Gastrointestinal: soft, non-tender, non-distended, normal bowel sounds, no palpable masses, no hepatomegaly, no splenomegaly, no bruit Extremities: no cyanosis, no clubbing, no edema Skin: normal turgor Neurological: no focal deficits Musculoskeletal: normal tone Psychiatric: normal affect, normal behavior Hosp A/P (1) Emphysema of lung Code(s): J43.9 - EMPHYSEMA, UNSPECIFIED Status: Acute (2) Tachycardia Code(s): R00.0 - TACHYCARDIA, UNSPECIFIED Status: Acute (3) Acute on chronic respiratory failure with hypoxemia Code(s): J96.21 - ACUTE AND CHRONIC RESPIRATORY FAILURE WITH HYPOXIA Status: Acute (4) COPD exacerbation Code(s): J44.1 - CHRONIC OBSTRUCTIVE PULMONARY DISEASE W (ACUTE) EXACERBATION Status: Acute (5) Moderate protein-calorie malnutrition Code(s): E44.0 - MODERATE PROTEIN-CALORIE MALNUTRITION Status: Acute (6) Pulmonary cachexia due to COPD Code(s): J44.9 - CHRONIC OBSTRUCTIVE PULMONARY DISEASE, UNSPECIFIED; R64 - CACHEXIA Status: Acute (7) Vertebral compression fracture Code(s): M48.50XA - COLLAPSED VERTEBRA, NEC, SITE UNSP, INIT Status: Acute (8) Degenerative disc disease, thoracic Code(s): M51.34 - OTHER INTERVERTEBRAL DISC DEGENERATION, THORACIC REGION Status: Acute - Plan Reviewed her CT chest. She does have significant degen disc disease, osteophytes and compression fractures of the T spine. May account for some of her symptoms of abd. discomfort. She has has significant emphysema of the lungs. Continue with the steroids, nebs, oxygen. Pulm following. Adding Trilogy. Reviewed recs from [facility]. Will add supplements and PPN.
[2019-03-19] MEDS: Acetaminophen 500 MG TAB PO PRN (15:17)
[2019-03-19] MEDS: cefTRIAXone\\ROCEPHIN 2 GM in Sodium Chloride 0.9% 100 ML IVPB SCH (20:25)
[2019-03-20] MEDS: methylPREDNISolone Sod Succ 40 MG VIAL IVP SCH ×4 (05:39→20:19)
[2019-03-20] MEDS: Mometasone/Formoterol 120 PUFF INHALER INH SCH ×2 (06:59→18:58)
[2019-03-20] MEDS: Simethicone Chewable 80 MG TAB PO SCH ×4 (08:44→20:18)
[2019-03-20] MEDS: Famotidine/PF 20 mg/2ml Vial SLOW IVP SCH ×2 (09:24→20:19)
--- NOTE | 2019-03-20 09:27 | PRG ---
DATE OF SERVICE: 03/20/2019 SUBJECTIVE: She did have to use the BiPAP last night, but overall feels better. OBJECTIVE: VITAL SIGNS: Her temperature is 99.2, pulse 96, blood pressure 140/85, and O2 saturation 100% HEENT: Unremarkable. NECK: No adenopathy or JVD. CHEST: Clear at the apex. Some crackles at the base. ABDOMEN: Soft. EXTREMITIES: No edema. LABORATORY DATA: No labs were done today. ASSESSMENT: 1. Chronic obstructive pulmonary disease with exacerbation. 2. Chronic hypoxic and hypercapnic respiratory failure. PLAN: 1. Trilogy ventilator has been ordered as BiPAP would not be sufficient enough to take care of this at home. 2. Leave in [facility] for now as she required noninvasive ventilation last night. 3. I have decreased her steroid dose. 4. Continue her breathing treatments and antibiotics. Job ID: [id number]
[2019-03-20 14:53] VITALS: BMI 16.5
[2019-03-20] MEDS: cefTRIAXone\\ROCEPHIN 2 GM in Sodium Chloride 0.9% 100 ML IVPB SCH (22:00)
[2019-03-21] MEDS: methylPREDNISolone Sod Succ 40 MG VIAL IVP SCH (04:00)
--- NOTE | 2019-03-21 08:16 | PRG ---
DATE OF SERVICE: 03/21/2019 SUBJECTIVE: She feels good, had a fairly decent night. Did not require BiPAP. Overnight, pulse oximetry was done last night, results of which are pending. OBJECTIVE: VITAL SIGNS: Temperature 98.4, pulse 93, blood pressure 92/56. HEENT: Unremarkable. NECK: No adenopathy or JVD. LUNGS: Distant, but clear breath sounds. CARDIAC: S1, S2. Regular. ABDOMEN: Soft. EXTREMITIES: No edema. ASSESSMENT: 1. Severe chronic obstructive pulmonary disease with exacerbation. 2. Hypercapnic respiratory failure, which is chronic. PLAN: She will be transferred to the medical floor. Advance to regular diet. Change to oral antibiotics and steroids. Hopefully home in the next 24-40 hours. Job ID: [id number]
[2019-03-21] MEDS: Mometasone/Formoterol 120 PUFF INHALER INH SCH ×2 (09:01→22:17)
[2019-03-21] MEDS: predniSONE 20 MG TAB PO SCH (09:12)
[2019-03-21] MEDS: Simethicone Chewable 80 MG TAB PO SCH ×4 (09:12→22:37)
[2019-03-21] MEDS: Cefdinir 300 MG CAP PO SCH (09:12)
[2019-03-21] MEDS: Famotidine/PF 20 mg/2ml Vial SLOW IVP SCH ×2 (09:12→20:14)
--- NOTE | 2019-03-21 09:51 | PDOC.HOSPP ---
- Subjective Encounter Date: 03/21/19 Encounter Time: 09:49 Subjective: Doing a little better. Shaky. Typical with nebs for her. Does not feel she is at her baseline, but much improved. - Objective Vital Signs & Weight: Vital Signs (12 hours) Temp Pulse Resp Pulse Ox 03/21/19 08:42 109 H 27 H 94 L 03/21/19 07:43 98.4 F 03/21/19 07:24 95 03/21/19 03:31 97.9 F 03/21/19 02:13 91 20 95 03/20/19 23:34 97.8 F 03/20/19 22:13 90 24 H 95 Weight Admit Weight 84 lb 8 oz Weight 90 lb 4 oz Most Recent Monitor Data Heart Rate from ECG 93 NIBP 92/56 NIBP BP-Mean 68 Respiration from ECG 23 SpO2 97 I&O: 03/20/19 03/21/19 03/22/19 06:59 06:59 06:59 Intake Total 2280 1990 Output Total 675 1100 Balance 1605 890 Result Diagrams: 03/18/19 06:06 03/18/19 06:06 Hospitalist ROS - Medication Medications: Active Medications Generic Name Dose Route Start Last Admin Trade Name Freq PRN Reason Stop Dose Admin Acetaminophen 1,000 mg 03/18/19 02:25 03/19/19 15:17 Tylenol PO 500 mg Q6H PRN Administration Mild Pain (1-3) Albuterol/Ipratropium 3 ml 03/18/19 02:30 03/21/19 08:42 Duoneb NEB 3 ml [id number] JANENE Administration Cefdinir 600 mg 03/21/19 09:00 03/21/19 09:12 Omnicef PO 600 mg DAILY JANENE Administration Famotidine 20 mg 03/18/19 09:00 03/21/19 09:12 Pepcid SLOW IVP 20 mg Q12HR JANENE Administration Lorazepam 0.5 mg 03/19/19 09:48 03/19/19 09:57 Ativan SLOW IVP 0.5 mg Q6H PRN Administration Anxiety/Agitation Mometasone Furoate/Formoterol Fumar 1 puff 03/18/19 06:30 03/21/19 09:01 Dulera 200 Mcg/5 Mcg Inhaler INH 1 puff BID-RT JANENE Administration Prednisone 40 mg 03/21/19 09:00 03/21/19 09:12 Prednisone PO 40 mg DAILY JANENE Administration Simethicone 80 mg 03/18/19 19:00 03/21/19 09:12 Mylicon Chewable PO Not Given PCHS JANENE Sodium Chloride 10 ml 03/19/19 21:00 03/21/19 09:13 Flush - Normal Saline IVF 10 ml Q12HR JANENE Administration - Exam General Appearance: NAD, awake alert General - other findings: Jittery. Heart: RRR, no murmur, no gallops, no rubs, normal peripheral pulses Respiratory: CTAB, no wheezes, no rales, no ronchi Respiratory - other findings: Very diminished. Gastrointestinal: soft, non-tender, non-distended, normal bowel sounds Extremities: no cyanosis Musculoskeletal: normal tone, diffuse muscle atrophy Psychiatric: normal affect, normal behavior, A&O x 3 Hosp A/P (1) COPD exacerbation Code(s): J44.1 - CHRONIC OBSTRUCTIVE PULMONARY DISEASE W (ACUTE) EXACERBATION Status: Acute (2) Emphysema of lung Code(s): J43.9 - EMPHYSEMA, UNSPECIFIED Status: Acute (3) Tachycardia Code(s): R00.0 - TACHYCARDIA, UNSPECIFIED Status: Acute (4) Acute on chronic respiratory failure with hypoxemia Code(s): J96.21 - ACUTE AND CHRONIC RESPIRATORY FAILURE WITH HYPOXIA Status: Acute (5) Moderate protein-calorie malnutrition Code(s): E44.0 - MODERATE PROTEIN-CALORIE MALNUTRITION Status: Acute (6) Pulmonary cachexia due to COPD Code(s): J44.9 - CHRONIC OBSTRUCTIVE PULMONARY DISEASE, UNSPECIFIED; R64 - CACHEXIA Status: Acute (7) Vertebral compression fracture Code(s): M48.50XA - COLLAPSED VERTEBRA, NEC, SITE UNSP, INIT Status: Acute (8) Degenerative disc disease, thoracic Code(s): M51.34 - OTHER INTERVERTEBRAL DISC DEGENERATION, THORACIC REGION Status: Acute - Plan Abd pain resolved. She has has significant emphysema of the lungs. COPD exac. Continue with the steroids, nebs, oxygen. Pulm following. Adding Trilogy. Transfer to Medical and continue current med. Reviewed recs from [facility]. Will add supplements and PPN.
[2019-03-22] MEDS: Mometasone/Formoterol 120 PUFF INHALER INH SCH ×2 (06:57→19:03)
[2019-03-22 08:10] LABS: #Lymphocytes 2.8 thou/uL (1.20-3.40); #Monocytes 1.3 thou/uL (0.11-0.59); %Basophils 0.2 % (0.0-1.0); %Eosinophils 0.1 % (0.0-10.0); %Monocytes 13.8 % (0.0-10.0); %Neutrophils 54.9 % (42.0-75.0); Hemoglobin 12.8 g/dL (12.0-16.0); Mean Corpuscular Hemoglobin 27.7 pg (27.0-31.0); Mean Corpuscular Volume 89.4 fL (78.0-98.0); Mean Platelet Volume 8.7 fL (7.4-10.4); Platelet Count 233 thou/uL (130-400); RBC Distribution Width 13.5 % (11.5-14.5); Red Blood Cell (RBC) Count 4.63 mill/uL (4.20-5.40); White Blood Cell (WBC) Count 9.1 thou/uL (4.8-10.8)
[2019-03-22 08:22] LABS: BUN (Urea Nitrogen) 20 mg/dL (9.8-20.1); Calc. Creatinine Clearance 55 mL/min (70-130); Calcium 8.9 mg/dL (7.8-10.44); Estimated GFR-MDRD Greater than 90; Glucose 90 mg/dL (83-110)
[2019-03-22 08:31] LABS: Anion Gap 10 mmol/L (10-20); Carbon Dioxide 39 mmol/L (23-31); Chloride 92 mmol/L (98-107); Potassium 4.3 mmol/L (3.5-5.1); Sodium 137 mmol/L (136-145)
--- NOTE | 2019-03-22 08:47 | PRG ---
DATE OF SERVICE: 03/22/2019 SUBJECTIVE: Ms. Paredes is doing well. She has an IV that is infiltrated in her right arm. Her breathing is better. OBJECTIVE: VITAL SIGNS: Temperature is 98.1, pulse 88, blood pressure 126/70. HEENT: Unremarkable. NECK: No adenopathy or JVD. LUNGS: Distant, but clear breath sounds. CARDIAC: S1, S2. Regular. ABDOMEN: Soft. EXTREMITIES: No edema. There are no labs that have been done. ASSESSMENT: Chronic obstructive pulmonary disease with exacerbation. PLAN: Continue antibiotics, steroids and nebulization treatments. We will discontinue the IV. She is probably stable for discharge tomorrow. Job ID: [id number]
[2019-03-22] MEDS: Cefdinir 300 MG CAP PO SCH (09:19)
[2019-03-22] MEDS: Famotidine 20 MG TAB PO SCH ×2 (09:20→20:14)
[2019-03-22] MEDS: predniSONE 20 MG TAB PO SCH (09:20)
[2019-03-22] MEDS: Simethicone Chewable 80 MG TAB PO SCH ×4 (09:20→21:23)
--- NOTE | 2019-03-22 15:19 | PDOC.HOSPP ---
- Subjective Subjective: Continues to improve, but continues to report her HORTON with minimal exertion even at home. - Objective Vital Signs & Weight: Vital Signs (12 hours) Temp Pulse Resp BP Pulse Ox 03/22/19 12:35 98.1 F 98 22 H 117/74 95 03/22/19 12:30 98 03/22/19 11:09 98.6 F 03/22/19 10:30 92 20 03/22/19 07:44 95 03/22/19 07:16 98.1 F 03/22/19 06:57 96 20 03/22/19 03:43 98.8 F 99 Weight Admit Weight 84 lb 8 oz Weight 90 lb 4 oz Most Recent Monitor Data Heart Rate from ECG 101 NIBP 126/70 NIBP BP-Mean 88 Respiration from ECG 21 SpO2 84 I&O: 03/21/19 03/22/19 03/23/19 06:59 06:59 06:59 Intake Total 1989 1220 Output Total 1100 500 Balance 890 720 Result Diagrams: 03/22/19 07:47 03/22/19 07:47 Hospitalist ROS - Medication Medications: Active Medications Generic Name Dose Route Start Last Admin Trade Name Freq PRN Reason Stop Dose Admin Acetaminophen 1,000 mg 03/18/19 02:25 03/19/19 15:17 Tylenol PO 500 mg Q6H PRN Administration Mild Pain (1-3) Albuterol/Ipratropium 3 ml 03/18/19 02:30 03/22/19 10:30 Duoneb NEB 3 ml [id number] JANENE Administration Cefdinir 600 mg 03/21/19 09:00 03/22/19 09:19 Omnicef PO 600 mg DAILY JANENE Administration Famotidine 20 mg 03/22/19 09:00 03/22/19 09:20 Pepcid PO 20 mg BID JANENE Administration Mometasone Furoate/Formoterol Fumar 1 puff 03/18/19 06:30 03/22/19 06:57 Dulera 200 Mcg/5 Mcg Inhaler INH 1 puff BID-RT JANENE Administration Prednisone 40 mg 03/21/19 09:00 03/22/19 09:20 Prednisone PO 40 mg DAILY JANENE Administration Simethicone 80 mg 03/18/19 19:00 03/22/19 13:54 Mylicon Chewable PO Not Given [facility] JANENE Sodium Chloride 10 ml 03/19/19 21:00 03/22/19 09:21 Flush - Normal Saline IVF 10 ml Q12HR JANENE Administration - Exam General Appearance: NAD, awake alert Heart: RRR, no murmur, no gallops, no rubs, normal peripheral pulses Respiratory: CTAB Respiratory - other findings: Very diminished, but actually a little better today. Gastrointestinal: soft Musculoskeletal: normal tone Psychiatric: normal affect, normal behavior, A&O x 3 Hosp A/P (1) COPD exacerbation Code(s): J44.1 - CHRONIC OBSTRUCTIVE PULMONARY DISEASE W (ACUTE) EXACERBATION Status: Acute (2) Emphysema of lung Code(s): J43.9 - EMPHYSEMA, UNSPECIFIED Status: Acute (3) Tachycardia Code(s): R00.0 - TACHYCARDIA, UNSPECIFIED Status: Acute (4) Acute on chronic respiratory failure with hypoxemia Code(s): J96.21 - ACUTE AND CHRONIC RESPIRATORY FAILURE WITH HYPOXIA Status: Acute (5) Moderate protein-calorie malnutrition Code(s): E44.0 - MODERATE PROTEIN-CALORIE MALNUTRITION Status: Acute (6) Pulmonary cachexia due to COPD Code(s): J44.9 - CHRONIC OBSTRUCTIVE PULMONARY DISEASE, UNSPECIFIED; R64 - CACHEXIA Status: Acute (7) Vertebral compression fracture Code(s): M48.50XA - COLLAPSED VERTEBRA, NEC, SITE UNSP, INIT Status: Acute (8) Degenerative disc disease, thoracic Code(s): M51.34 - OTHER INTERVERTEBRAL DISC DEGENERATION, THORACIC REGION Status: Acute - Plan Abd pain intermittent and related to spasm of the diaphragm. She has has significant emphysema of the lungs. COPD exac. Continue with the steroids, nebs, oxygen. Pulm following. Adding Trilogy. Transfer to Medical and continue current med. Reviewed recs from House Officer. Will add supplements and PPN. Looks like she is getting close to her baseline and should be ready for DC soon. Long discussion regarding the current state of her lungs and her prognosis.
[2019-03-23] MEDS: Cefdinir 300 MG CAP PO SCH (08:27)
[2019-03-23] MEDS: Simethicone Chewable 80 MG TAB PO SCH ×4 (08:27→19:09)
[2019-03-23] MEDS: predniSONE 20 MG TAB PO SCH (08:27)
[2019-03-23] MEDS: Famotidine 20 MG TAB PO SCH ×2 (08:27→19:43)
[2019-03-23] MEDS: Mometasone/Formoterol 120 PUFF INHALER INH SCH ×2 (09:44→18:49)
--- NOTE | 2019-03-23 12:09 | PDOC.HOSPP ---
- Subjective Encounter Date: 03/23/19 Subjective: FEELING BETTER.SOB RESOLVED. - Objective Vital Signs & Weight: Vital Signs (12 hours) Temp Pulse Resp BP BP Pulse Ox 03/23/19 09:44 68 16 03/23/19 09:38 95 03/23/19 09:35 68 16 03/23/19 08:25 96 03/23/19 08:00 97.6 F 97 20 104/63 96 03/23/19 04:00 97.3 F L 82 16 101/54 L 100 03/23/19 01:56 90 18 97 Weight Admit Weight 84 lb 8 oz Weight 90 lb 4 oz Most Recent Monitor Data Heart Rate from ECG 101 NIBP 126/70 NIBP BP-Mean 88 Respiration from ECG 21 SpO2 84 I&O: 03/22/19 03/23/19 03/24/19 06:59 06:59 06:59 Intake Total 1220 640 Output Total 500 800 Balance 720 -160 Result Diagrams: 03/22/19 07:47 03/22/19 07:47 Hospitalist ROS - Review of Systems Respiratory: reports: cough - Medication Medications: Active Medications Generic Name Dose Route Start Last Admin Trade Name Freq PRN Reason Stop Dose Admin Acetaminophen 1,000 mg 03/18/19 02:25 03/19/19 15:17 Tylenol PO 500 mg Q6H PRN Administration Mild Pain (1-3) Albuterol/Ipratropium 3 ml 03/18/19 02:30 03/23/19 11:10 Duoneb NEB Not Given F5ON-ON JANENE Cefdinir 600 mg 03/21/19 09:00 03/23/19 08:27 Omnicef PO 600 mg DAILY JANENE Administration Famotidine 20 mg 03/22/19 09:00 03/23/19 08:27 Pepcid PO 20 mg BID JANENE Administration Mometasone Furoate/Formoterol Fumar 1 puff 03/18/19 06:30 03/23/19 09:44 Dulera 200 Mcg/5 Mcg Inhaler INH 1 puff BID-RT JANENE Administration Prednisone 40 mg 03/21/19 09:00 03/23/19 08:27 Prednisone PO 40 mg DAILY JANENE Administration Simethicone 80 mg 03/18/19 19:00 03/23/19 08:27 Mylicon Chewable PO Not Given [facility] JANENE Sodium Chloride 10 ml 11/19/19 21:00 03/23/19 08:28 Flush - Normal Saline IVF Not Given Q12HR JANENE - Exam Eye: PERRL ENT: normocephalic atraumatic, no oropharyngeal lesions, moist mucosa Neck: supple, symmetric, no JVD, no thyromegaly, no lymphadenopathy, no carotid bruit Heart: RRR, no murmur, no gallops, no rubs, normal peripheral pulses Respiratory: CTAB, no wheezes, no rales, no ronchi, normal chest expansion, no tachypnea, normal percussion Gastrointestinal: soft, non-tender, non-distended, normal bowel sounds, no palpable masses, no hepatomegaly, no splenomegaly, no bruit Extremities: no cyanosis, no clubbing, no edema Skin: normal turgor, no lesions, no rashes Neurological: cranial nerve grossly intact, normal sensation to touch, no weakness, no focal deficits, no new deficit Psychiatric: normal affect, normal behavior, A&O x 3 Hosp A/P (1) Moderate protein-calorie malnutrition Code(s): E44.0 - MODERATE PROTEIN-CALORIE MALNUTRITION Status: Chronic (2) Pulmonary cachexia due to COPD Code(s): J44.9 - CHRONIC OBSTRUCTIVE PULMONARY DISEASE, UNSPECIFIED; R64 - CACHEXIA Status: Chronic (3) Vertebral compression fracture Code(s): M48.50XA - COLLAPSED VERTEBRA, NEC, SITE UNSP, INIT Status: Chronic (4) COPD exacerbation Code(s): J44.1 - CHRONIC OBSTRUCTIVE PULMONARY DISEASE W (ACUTE) EXACERBATION Status: Chronic (5) Physical deconditioning Code(s): R53.81 - OTHER MALAISE Status: Chronic - Plan old records reviewed/req, plan discussed w/ family, out of bed/ambulate 1.Discharge plan in am with family.
--- NOTE | 2019-03-23 17:54 | PRG ---
DATE OF SERVICE: 03/23/2019 SUBJECTIVE: Denise Paredes says she is feeling better. OBJECTIVE: VITAL SIGNS: She is afebrile, heart rate has been anywhere from 61 to 109 today, respiratory rates in the teens, oximetry is in the high 90s, and blood pressure 108/64. LUNGS: Remarkable for distant and equal breath sounds. HEART: Regular rhythm. ABDOMEN: Soft. IMPRESSION: Chronic obstructive pulmonary disease exacerbation, slowly improving. She has 1+ pedal edema and she was worried about this. I have reassured her that this is normal when getting closer to going home from chronic obstructive pulmonary disease exacerbation. There is no new lab today. Overall, she appears to be stable. We will continue to follow. Job ID: [id number]
[2019-03-24] MEDS: Acetaminophen 500 MG TAB PO PRN (01:12)
[2019-03-24] MEDS: Mometasone/Formoterol 120 PUFF INHALER INH SCH (06:49)
[2019-03-24] MEDS: Cefdinir 300 MG CAP PO SCH (07:55)
[2019-03-24] MEDS: Famotidine 20 MG TAB PO SCH (07:55)
[2019-03-24] MEDS: predniSONE 20 MG TAB PO SCH (07:56)
[2019-03-24] MEDS: Simethicone Chewable 80 MG TAB PO SCH ×2 (07:57→14:31)
[2019-03-24] MEDS ORDERED: Acetaminophen 500 MG TAB PO PRN (08:30)
--- NOTE | 2019-03-24 12:54 | EKG ---
Test Reason : PREOP Blood Pressure : / mmHG Vent. Rate : 122 BPM Atrial Rate : 122 BPM P-R Int : 148 ms QRS Dur : 094 ms QT Int : 290 ms P-R-T Axes : 087 030 092 degrees QTc Int : 413 ms Sinus tachycardia Nonspecific ST and T wave abnormality Abnormal ECG When compared with ECG of 17-MAR-2019 21:37, (Unconfirmed) No significant change was found Confirmed by ROSELIA WAY (2) on 03/24/2019 12:54:03 PM Referred By: DANIELLE Confirmed By:ROSELIA WAY
[2019-03-24 14:31] VITALS: TEMP 98
[2019-03-24 16:19] VITALS: BP 110/63
--- NOTE | 2019-03-24 20:57 | PRG ---
DATE OF SERVICE: 03/24/2019 SUBJECTIVE: Denise Paredes is in no distress. She denies being short of breath. OBJECTIVE: VITAL SIGNS: Have been stable. LUNGS: Clear. HEART: Regular rhythm. ABDOMEN: Soft and nontender. EXTREMITIES: Without edema. She is tentatively on the schedule to go home. IMPRESSION AND PLAN: Chronic obstructive pulmonary disease exacerbation, improving. I have encouraged her to see Dr. Bravo in 2 to 3 weeks. I have also encouraged her to call us should she deteriorate between now and then. Job ID: [id number]
--- NOTE | 2019-03-25 14:25 | DIS ---
DATE OF ADMISSION: 03/18/2019 DATE OF DISCHARGE: 03/24/2019 PRIMARY CARE PHYSICIAN: Talita Waterman MD. PRIMARY PULMONARY PHYSICIAN: Janusz Bravo MD. ADMISSION DIAGNOSES: 1. Acute on chronic hypoxemic hypercapnic respiratory failure. 2. Chronic obstructive pulmonary disease. 3. Hyperglycemia. CONSULTATIONS: Called at [facility], Dr. Janusz Bravo. DISCHARGE DIAGNOSES: 1. Status post acute hypoxemic hypercapnic respiratory failure with exacerbation, resolved, now optimized. The patient currently discharged with oral steroid course along with nebulizations. 2. History of vertebral compression fracture, chronic in nature. 3. Pulmonary cachexia secondary to chronic obstructive pulmonary disease. 4. Moderate protein-calorie malnutrition. HOSPITAL COURSE: This is an 78-year-old female who was admitted to the hospitalist service at [facility], with complaints of shortness of breath associated with hypoxemia as well as hypercapnia initially with respiratory failure, was evaluated and optimized with oxygen, nebulizations, IV steroids and eventual referral to Pulmonary Critical Care was noted. The patient was continued on supportive care with the above-mentioned medications, over the course improved. Also was started on cefdinir for bronchitis and eventually patient's IV steroids were transitioned to oral steroids. The patient fairly was doing well with this. Did have some lower extremity edema which is likely secondary to steroids. At this point in time, the patient has been advised for discharge planning with home health care along with tapering course of steroids. The patient was hemodynamically optimized on discharged. DISPOSITION: Discharged home with home health care. PHYSICAL EXAMINATION: CVS: S1 and S2. CHEST: Bilateral air entry present. ABDOMEN: Soft. EXTREMITIES: No cyanosis. ALLERGIES: LEVOFLOXACIN. ACTIVITY: As tolerated with fall precautions. DIET: Regular diet. DISCHARGE MEDICATIONS: 1. Tapering course of steroids, oral. 2. Cefdinir 600 mg twice a day for 5 days. 3. Pepcid 20 mg b.i.d. 4. Mometasone formoterol 1 puff b.i.d. 5. Simethicone 80 mg daily. 6. Nebulizations as needed for home schedule. 7. Oxygen use at home. DISCHARGE PLAN: The patient has been advised and educated about the diagnoses, treatment, and followup. Advised about tapering course of steroids. Followup care with Dr. Bravo, Pulmonary Critical Care in 1 week. The whole discharge process including discharge coordination took me more than 35 minutes. ADVANCED DIRECTIVES: Full code. Job ID: [id number]
== END 2019-03-24 16:56 | disposition home health service (06) | DRG 189 ==
LOC: ERS 21:31 → IMCU/EMU 03-18 01:09 → T4-A 03-22 12:00
PROVIDERS: ADMIT Family Medicine; ATTEND Family Medicine
PROC: 5A09357 Assistance with Respiratory Ventilation, Less than 24 Consecutive Hours, Continuous Positive Airway Pressure (ICD-10-PCS; principal; 2019-03-18)
DX: J96.21 Acute and chronic respiratory failure with hypoxia (principal); E44.0 Moderate protein-calorie malnutrition; Z68.1 Body mass index [BMI] 19.9 or less, adult; R64 Cachexia; J43.9 Emphysema, unspecified; J96.22 Acute and chronic respiratory failure with hypercapnia; J98.01 Acute bronchospasm; R73.9 Hyperglycemia, unspecified; F45.8 Other somatoform disorders; R00.0 Tachycardia, unspecified; M51.34 Other intervertebral disc degeneration, thoracic region; M48.50XD Collapsed vertebra, not elsewhere classified, site unspecified, subsequent encounter for fracture with routine healing; Z99.81 Dependence on supplemental oxygen; Z90.710 Acquired absence of both cervix and uterus; Z87.891 Personal history of nicotine dependence; Z88.1 Allergy status to other antibiotic agents; Z79.51 Long term (current) use of inhaled steroids; Z79.52 Long term (current) use of systemic steroids
CPT/HCPCS: 36415; 71045; 71275; 80048; 80053; 82550; 82805; 83605; 83690; 83735; 83880; 84484; 85007; 85025; 85027; 85379; 87040; 87804; 93005; 93010; 94640; 94660; 96365; 96375; J0696; J2060; J2920; J2930; J3475; J3490; J7512; J7620; Q9967; S0028

== ENCOUNTER 2019-06-25 09:38 | Outpatient (CLI) | payer MEDICARE, OTHER ==
--- NOTE | 2019-06-25 10:06 | RAD ---
EXAM: Chest PA and lateral: HISTORY: Dyspnea COMPARISON: 02/26/2019 FINDINGS: Lung russo are clear there is hyperexpansion. Mild apical pleural thickening is stable.. Vascular ma rkings are normal. Heart and mediastinum appear unremarkable. Vertebral bodies show osteopenia. Numerous compression deformities in the midthoracic spine appear st able. IMPRESSION: No acute interval change
== END 2019-06-25 09:39 | disposition home or self-care (01) ==
LOC: RAD 09:38
PROVIDERS: ATTEND Internal Medicine Critical Care Medicine
DX: R06.00 Dyspnea, unspecified (principal)
CPT/HCPCS: 71046

== ENCOUNTER 2019-07-01 06:31 | Inpatient (IN) | payer MEDICARE, OTHER ==
[2019-07-01] MEDS ORDERED: Albuterol Sulfate 2.5 mg/3 ml Neb ONE (06:37)
[2019-07-01] MEDS ORDERED: Albuterol Sulfate 2.5 mg/0.5 ml Neb ONE (06:37)
[2019-07-01 06:53] LABS: Hemoglobin 12.2 g/dL (12.0-16.0); Mean Corpuscular HGB CONC 32.4 g/dL (32.0-36.0); Mean Corpuscular Hemoglobin 28.7 pg (27.0-31.0); Mean Corpuscular Volume 88.7 fL (78.0-98.0); Mean Platelet Volume 8.8 fL (7.4-10.4); Platelet Count 227 thou/uL (130-400); RBC Distribution Width 13.2 % (11.5-14.5); Red Blood Cell (RBC) Count 4.27 mill/uL (4.20-5.40); White Blood Cell (WBC) Count 9.6 thou/uL (4.8-10.8)
[2019-07-01 07:08] LABS: ALT (SGPT) 14 U/L (8-55); AST (SGOT) 15 U/L (5-34); Albumin 3.8 g/dL (3.4-4.8); Alkaline Phosphatase 87 U/L (40-110); Anion Gap 9 mmol/L (10-20); BUN (Urea Nitrogen) 18 mg/dL (9.8-20.1); Bilirubin, Total 0.5 mg/dL (0.2-1.2); Calc. Creatinine Clearance 0 mL/min (70-130); Calcium 8.7 mg/dL (7.8-10.44); Carbon Dioxide 30 mmol/L (23-31); Chloride 104 mmol/L (98-107); Estimated GFR-MDRD Greater than 90; Globulin 1.7 g/dL (2.4-3.5); Glucose 131 mg/dL (83-110); Potassium 3.5 mmol/L (3.5-5.1); Protein, Total 5.5 g/dL (6.0-8.3); Sodium 139 mmol/L (136-145)
[2019-07-01 07:12] LABS: Lymphocytes 66 % (21-51); MDiff Complete? YES; Monocytes 3 % (0-10); Neutrophil 29 % (42-75); Platelet Morphology Comment Appears Adequate; Polychromasia SLIGHT = 2-3 cells (100X) (0-2/hpf); Reactive Lymphocytes 2 % (0-10)
--- NOTE | 2019-07-01 07:38 | RAD ---
Portable frontal chest radiograph: 07/01/2019 COMPARISON: 06/25/2019 HISTORY: Shortness of breath FINDINGS: Increased linear interstitial density noted, stable when compared to prior imaging. Stable pulmonary hyperinflation. Heart and mediastinal contours are unremarkable. No focal consolidation or alveolar edema. IMPRESSION: Stable appearance of the chest as above.
[2019-07-01 08:06] LABS: Actual Bicarbonate (HCO3a) 25.5 mEq/L (22-28); Analyzer IN Cardio ER; CO2 Tension 49.8 mmHg (35.0-45.0); Carboxyhemoglobin (COHb) 0.3 gm% (0.0-3.0); Hemoglobin (Hb) 12.3 g/dL (12.0-16.0); Potassium - ABG Lab 3.29 mmol/L (3.70-5.30); pH, Arterial 7.33 (7.35-7.45)
[2019-07-01 08:09] LABS: Puncture Site L.R.
[2019-07-01 11:13] LABS: Troponin I 0.011 ng/mL (< 0.028)
[2019-07-01] MEDS ORDERED: Dextrose 50% Abboject 50 ML SYRINGE SLOW IVP PRN (12:20)
[2019-07-01] MEDS ORDERED: Guaifenesin DM 100-10/5 ML UDCUP PO PRN (12:20)
[2019-07-01] MEDS ORDERED: Senokot S 8.6-50 MG TAB PO PRN (12:20)
[2019-07-01] MEDS ORDERED: Ondansetron PF 4 MG/2 ML Vial IVP PRN (12:20)
[2019-07-01] MEDS ORDERED: Dextrose 5% in Water 1,000 ML IV PRN (12:20)
[2019-07-01] MEDS ORDERED: Acetaminophen 325 MG TAB PO PRN (12:20)
[2019-07-01] MEDS ORDERED: Benzonatate 100 MG CAP PO PRN (12:20)
[2019-07-01] MEDS ORDERED: Sodium Chloride 0.9% 1,000 ML IV SCH (12:20)
[2019-07-01] MEDS ORDERED: HumaLOG 300 UNITS/3 ML VIAL SC PRN (12:20)
[2019-07-01] MEDS ORDERED: Bisacodyl 10 MG SUPP PR PRN (12:20)
--- NOTE | 2019-07-01 13:16 | HP ---
REASON FOR ADMISSION: COPD exacerbation, acute on chronic respiratory failure with hypoxia, chronic COPD which is steroid and BiPAP dependent at home. HISTORY OF PRESENTING ILLNESS: The patient gives history of having shortness of breath from yesterday evening. She wore her ventilator and not sure if this was Trilogy or BiPAP machine that she has all night long and this morning when she took it off, the patient had trouble breathing. She tried to take a nebulization, but could not suck air through it. She felt very short of breath and finally called EMS. On arrival, the patient had saturations of 88% on 3 L nasal cannula and had to be placed on BiPAP initially. She was given steroids and albuterol continuous nebulization. She has been slowly weaned off BiPAP at present. Has no expectoration of sputum. No fever at home. She normally takes nebulization 4 times daily along with Ellipta and Symbicort inhaler. She is also on prednisone chronically 10 mg daily. 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 She has COPD, is steroid dependent and BiPAP dependent. Chronic respiratory failure secondary to above, hysterectomy, and depression. CURRENT MEDICATIONS: The patient is on: 1. Prednisone 10 mg p.o. daily. 2. Symbicort inhaler 160/4.5 mcg two puffs twice daily. 3. DuoNeb four times daily. 4. Ellipta inhaler daily. 5. Zoloft 25 mg daily, which was started yesterday. ALLERGIES: TO LEVOFLOXACIN. PERSONAL HISTORY: Quit smoking 10 years back. The patient has smoked most of her life from 12 years of age up until 68 years. She has smoked half pack a day or so. Does not abuse alcohol or drugs. She ambulates by herself mostly, but uses walker if needed. FAMILY HISTORY: Mother at the age of 95 from natural causes. Father of aortic aneurysm and its rupture at the age of 71 years. CODE STATUS: The patient does not want to be intubated, but she is okay with CPR and chemical code if needed. Power of heel cutter is all her 3 daughters. REVIEW OF SYSTEMS: CONSTITUTIONAL: Negative for weight loss or gain, ability to conduct usual activities. SKIN: Negative for rash, itching. EYES: Negative for double vision, pain. ENT/MOUTH: Negative for nose bleeding, neck stiffness, pain, tenderness. CARDIOVASCULAR: Negative for palpitations, dyspnea on exertion, orthopnea. RESPIRATORY: Negative for shortness of breath, wheezing, cough, hemoptysis, fever or night sweats. GASTROINTESTINAL: Negative for poor appetite, abdominal pain, heartburn, nausea, vomiting, constipation, or diarrhea. GENITOURINARY: Negative for urgency, frequency, dysuria, nocturia. MUSCULOSKELETAL: Negative for pain, swelling. NEUROLOGIC/PSYCHIATRIC: Negative for anxiety, depression. ALLERGY/IMMUNOLOGIC: Negative for skin rash, bleeding tendency. PHYSICAL EXAMINATION: GENERAL: The patient is an 78-year-old female, who is currently not in any acute distress. VITAL SIGNS: Blood pressure 160/130 on arrival, pulse 86 per minute, respiratory rate 24 per minute, temperature 98.3 degrees Fahrenheit, and saturating 98% on BiPAP, currently 92% on 3 L nasal cannula. NECK: Supple. No elevated JVD. HEENT: Eyes; extraocular muscles intact. Pupils reacting to light. Oral cavity, mucous membranes are dry. No exudates or congestion. CARDIOVASCULAR SYSTEM: S1 and S2 heard. Regular rhythm. RESPIRATORY SYSTEM: Air entry 1+ bilateral. Scattered wheezes plus bilateral. Rhonchi plus bilateral. ABDOMEN: Soft. Bowel sounds heard. No tenderness, rigidity, or guarding. EXTREMITIES: Mild peripheral edema. No calf tenderness. VASCULAR SYSTEM: Peripheral pulses 1+ bilateral. No ischemic ulcerations or gangrene. CENTRAL NERVOUS SYSTEM: No gross focal deficits noted. The patient is alert, awake, and oriented well. PSYCHIATRIC SYSTEM: The patient's mood is euthymic. No hallucinations or delusions. LABORATORY DATA: Chest x-ray done shows no acute infiltrate. Electrolytes, stable. BUN 18, creatinine 0.5, serum glucose 131. Liver enzymes are within normal limits. Troponin x2 are negative. BNP 15. Albumin is 3.8. Blood gas done shows a pH of 7.33, pCO2 of 49, pO2 of 143. White count of 9.6, hemoglobin and hematocrit of 12 and 37, platelet count 227 with 29% neutrophils and 66% lymphocytes. MCV is 88. EKG done shows sinus rhythm at 82 beats per minute. There are nonspecific ST-T wave changes. CLINICAL IMPRESSION AND PLAN: The patient will be admitted to medical floor for acute on chronic obstructive pulmonary disease exacerbation, acute on chronic respiratory failure on nasal cannula at present. We will place her on DuoNebs q.6 hourly, gentle hydration with normal saline at 70 mL/h, Solu-Medrol 40 mg IV q.6 hourly, empiric doxycycline. We will consult Dr. Laguerre, who is on-call for Dr. Bravo, her billet inspector. Will be on Tessalon Perles, Mucinex, and Ellipta inhaler as well. We will continue her Zoloft, which was initiated from yesterday by her primary care physician. We will continue to closely monitor her on medical floor. The patient to use her home settings for either her BiPAP or home Trilogy monitor as before. Job ID: [id number]
[2019-07-01 15:48] VITALS: BMI 14.5
--- NOTE | 2019-07-01 17:01 | CON ---
DATE OF CONSULTATION: SUBJECTIVE: Denise Paredes is an 78-year-old female, who sees Dr. Bravo in office, presented with increasing shortness of breath and cough for several days duration. Denies any chest pain, chills, or sweats. She was given a breathing treatment earlier received one. She is significantly short of breath. She was just recently in the hospital not long ago March of 2019. She has severe limitation to activity, can barely walk even 20 feet without getting dyspneic. PAST MEDICAL HISTORY: COPD. PAST SURGICAL HISTORY: Hysterectomy. CHRONIC MEDICATIONS: 1. Prednisone. 2. Incruse nebulizer. 3. Ipratropium. 4. DuoNeb. 5. Symbicort. 6. Tessalon Perles. ALLERGIES: LEVAQUIN. SOCIAL HISTORY: Unremarkable. FAMILY HISTORY: Unremarkable. REVIEW OF SYSTEMS: Otherwise 10 point negative. PHYSICAL EXAMINATION: GENERAL: She is in significant distress, cachectic female, sitting upright in bed. VITAL SIGNS: Pulse 90, blood pressure respiratory rate 18, saturations 93% on nasal O2. CHEST: Decreased breath sounds. No wheezing. CARDIAC: Normal S1, S2, no gallops. ABDOMEN: No masses. NEUROLOGIC: Unremarkable. LABORATORY DATA: White count 9000, H and H 12 and 37, platelet count is normal. PO2 of 143, pCO2 of 49%, 33% on BiPAP. Lytes are normal. X-ray was clear. ASSESSMENT AND PLAN: 1. Chronic obstructive pulmonary disease exacerbation. 2. Bronchitis. 3. Cachexia. She is a do not intubation. I agree with present treatment. She is on aggressive steroids and neb treatment. We will notify Dr. Bravo in the morning. Consultation note, 70 minutes, 50% direct patient care. Job ID: [id number]
[2019-07-01] MEDS: methylPREDNISolone Sod Succ 40 MG VIAL IVP SCH ×2 (17:14→23:54)
[2019-07-01] MEDS: Arformoterol 15 MCG/2 ML NEB NEB SCH (18:56)
[2019-07-01] MEDS: Famotidine 20 MG TAB PO SCH (20:27)
[2019-07-01] MEDS: guaiFENesin ER 600 MG TAB PO SCH (20:37)
[2019-07-01] MEDS: Doxycycline 100 MG CAP PO SCH (20:37)
[2019-07-02] MEDS: methylPREDNISolone Sod Succ 40 MG VIAL IVP SCH ×3 (05:11→17:53)
[2019-07-02 05:59] LABS: #Lymphocytes 0.6 thou/uL (1.20-3.40); #Monocytes 0.1 thou/uL (0.11-0.59); #Neutrophils 4.5 thou/uL (1.40-6.50); %Basophils 0.9 % (0.0-1.0); %Monocytes 2.2 % (0.0-10.0); %Neutrophils 84.9 % (42.0-75.0); Hemoglobin 10.9 g/dL (12.0-16.0); Mean Corpuscular HGB CONC 32.1 g/dL (32.0-36.0); Mean Corpuscular Hemoglobin 28.4 pg (27.0-31.0); Mean Corpuscular Volume 88.7 fL (78.0-98.0); Mean Platelet Volume 9.3 fL (7.4-10.4); Platelet Count 193 thou/uL (130-400); RBC Distribution Width 13.3 % (11.5-14.5); Red Blood Cell (RBC) Count 3.82 mill/uL (4.20-5.40); White Blood Cell (WBC) Count 5.3 thou/uL (4.8-10.8)
[2019-07-02 06:12] LABS: Anion Gap 9 mmol/L (10-20); BUN (Urea Nitrogen) 13 mg/dL (9.8-20.1); Calc. Creatinine Clearance 54 mL/min (70-130); Calcium 8.2 mg/dL (7.8-10.44); Carbon Dioxide 28 mmol/L (23-31); Chloride 106 mmol/L (98-107); Estimated GFR-MDRD Greater than 90; Glucose 132 mg/dL (83-110); Sodium 139 mmol/L (136-145)
[2019-07-02] MEDS: Arformoterol 15 MCG/2 ML NEB NEB SCH ×2 (06:34→18:42)
[2019-07-02] MEDS: Famotidine 20 MG TAB PO SCH ×2 (08:49→20:43)
[2019-07-02] MEDS: Enoxaparin Sodium 40 MG/0.4 ML SYRINGE SC SCH (08:50)
[2019-07-02] MEDS: guaiFENesin ER 600 MG TAB PO SCH ×2 (08:51→20:49)
[2019-07-02] MEDS: Doxycycline 100 MG CAP PO SCH ×3 (08:53→20:49)
[2019-07-02] MEDS ORDERED: Non-Formulary Item 1 EACH (Umeclidinium Bromide [Incruse Ellipta] 1 INH) IH SCH (09:00)
[2019-07-02] MEDS ORDERED: methylPREDNISolone Sod Succ 40 MG VIAL IVP SCH (11:21)
--- NOTE | 2019-07-02 11:37 | PRG ---
DATE OF SERVICE: 07/02/2019 SUBJECTIVE: Ms. Paredes feels better this morning. Says her breathing is back to baseline. OBJECTIVE: VITAL SIGNS: Temperature 98.3, pulse 89, respirations 16, O2 saturation 97% 2 L, blood pressure 152/89. HEENT: Unremarkable. NECK: No adenopathy or JVD. LUNGS: Distant, but clear breath sounds. CARDIAC: S1, S2. Regular. ABDOMEN: Soft. EXTREMITIES: No edema. ASSESSMENT: 1. Chronic obstructive pulmonary disease with exacerbation. 2. Severe debilitation. PLAN: The patient is basically to the point where she needs to be in a senior living. She is on steroids, antibiotics and breathing treatments, but overall I think this is just a situation of deconditioning more than anything else. Job ID: [id number]
[2019-07-02] MEDS ORDERED: Bacteriostatic Water 30 ML VIAL FS PRN (11:55)
--- NOTE | 2019-07-02 12:07 | PDOC.HOSPP ---
- Subjective Encounter Date: 07/02/19 Encounter Time: 09:00 Subjective: breathing better used her trilogy vent last night is back at her home dose of 2lts nasal canula - Objective Vital Signs & Weight: Vital Signs (12 hours) Temp Pulse Resp BP Pulse Ox Pulse Ox Pulse Ox 07/02/19 11:36 98.3 F 90 16 132/76 97 07/02/19 10:06 89 16 97 07/02/19 09:22 92 L 90 L 07/02/19 08:40 94 L 07/02/19 07:43 98.3 F 98 18 152/89 H 94 L 07/02/19 06:35 99 07/02/19 06:34 102 H 20 99 07/02/19 06:33 102 H 20 99 07/02/19 05:00 98 F 86 18 133/70 100 07/02/19 02:13 91 20 95 Pulse Ox 07/02/19 11:36 07/02/19 10:06 07/02/19 09:22 90 L 07/02/19 08:40 07/02/19 07:43 07/02/19 06:35 07/02/19 06:34 07/02/19 06:33 07/02/19 05:00 07/02/19 02:13 Weight Admit Weight 84 lb 6.4 oz Weight 84 lb 6.4 oz I&O: 07/01/19 07/02/19 07/03/19 06:59 06:59 06:59 Intake Total 1760 Output Total 950 Balance 810 Result Diagrams: 07/02/19 05:23 07/02/19 05:23 Additional Labs: Accuchecks 07/02/19 07/01/19 07/01/19 11:39 20:42 15:55 POC Glucose 112 H 145 H 135 H Hospitalist ROS - Medication Medications: Active Medications Generic Name Dose Route Start Last Admin Trade Name Freq PRN Reason Stop Dose Admin Albuterol/Ipratropium 3 ml 07/01/19 18:30 07/02/19 10:06 Duoneb NEB 3 ml [id number] JANENE Administration Arformoterol Tartrate 15 mcg 07/01/19 18:30 07/02/19 06:34 Brovana NEB 15 mcg BID-RT JANENE Administration Doxycycline Hyclate 100 mg 07/01/19 21:00 07/02/19 08:55 Vibramycin PO Not Given BID [facility] Enoxaparin Sodium 40 mg 07/02/19 09:00 07/02/19 08:50 Lovenox SC 40 mg 0900 JANENE Administration Famotidine 20 mg 07/01/19 21:00 07/02/19 08:49 Pepcid PO 20 mg BID JANENE Administration Guaifenesin 600 mg 07/01/19 21:00 07/02/19 08:51 Mucinex PO Not Given Q12HR JANENE Sertraline HCl 25 mg 07/01/19 21:00 07/01/19 20:27 Zoloft PO 25 mg HS JANENE Administration - Exam General Appearance: awake alert Eye: PERRL, anicteric sclera ENT: no oropharyngeal lesions, moist mucosa Neck: supple, no JVD Heart: RRR, no murmur Respiratory: no wheezes, no rales, rhonchi Gastrointestinal: soft, non-tender, non-distended, normal bowel sounds Extremities: no cyanosis, no edema Neurological: cranial nerve grossly intact, no focal deficits Hosp A/P (1) Acute and chronic respiratory failure with hypoxia Code(s): J96.21 - ACUTE AND CHRONIC RESPIRATORY FAILURE WITH HYPOXIA Status: Resolved (2) COPD exacerbation Code(s): J44.1 - CHRONIC OBSTRUCTIVE PULMONARY DISEASE W (ACUTE) EXACERBATION Status: Acute (3) Moderate protein-calorie malnutrition Code(s): E44.0 - MODERATE PROTEIN-CALORIE MALNUTRITION Status: Chronic (4) Physical deconditioning Code(s): R53.81 - OTHER MALAISE Status: Chronic (5) Depression Code(s): F32.9 - MAJOR DEPRESSIVE DISORDER, SINGLE EPISODE, UNSPECIFIED Status : Chronic Qualifiers: Depression Type: major depressive disorder (6) Adult failure to thrive Status: Chronic - Plan is on doxy, steroids, nebs, elipta inh, pulmicort inh PT to mobilize as tolerated encourage po intake, ensure 1 can tid hemostable dc plan in am if stable and cleared by . HH with PT and nursing on dc.
[2019-07-03] MEDS: methylPREDNISolone Sod Succ 40 MG VIAL IVP SCH ×3 (00:12→13:59)
[2019-07-03] MEDS: Arformoterol 15 MCG/2 ML NEB NEB SCH ×2 (06:38→18:49)
[2019-07-03] MEDS: Famotidine 20 MG TAB PO SCH ×2 (08:50→20:04)
--- NOTE | 2019-07-03 09:37 | PRG ---
DATE OF SERVICE: 07/03/2019 SUBJECTIVE: Ms. Paredes is in better spirits. She is still considering residential placement. OBJECTIVE: VITAL SIGNS: Temperature 98.1, pulse 81, respirations 16, O2 saturation 96%, and blood pressure 152/84. HEENT: Clear. NECK: No adenopathy or JVD. LUNGS: Clear but diminished. CARDIAC: S1 andS2 regular. ABDOMEN: Soft. EXTREMITIES: No edema. ASSESSMENT: 1. End-stage chronic obstructive pulmonary disease with mild exacerbation. 2. Failure to thrive. PLAN: The patient is probably going to seek residential placement. I have discussed with the field case manager. Meantime continue the antibiotics, steroids, nebs. Job ID: [id number]
[2019-07-03] MEDS: guaiFENesin ER 600 MG TAB PO SCH ×2 (10:14→20:10)
[2019-07-03] MEDS: Enoxaparin Sodium 40 MG/0.4 ML SYRINGE SC SCH (10:14)
[2019-07-03] MEDS: Doxycycline 100 MG CAP PO SCH ×2 (10:14→20:10)
--- NOTE | 2019-07-03 12:56 | PDOC.HOSPP ---
- Subjective Encounter Date: 07/03/19 Encounter Time: 07:15 Subjective: feels better this am ate her breakfast well, wore trilogy vent last night - Objective Vital Signs & Weight: Vital Signs (12 hours) Temp Pulse Resp BP Pulse Ox 07/03/19 11:23 98.1 F 83 16 132/80 97 07/03/19 10:18 82 18 100 07/03/19 08:40 96 07/03/19 07:45 98.1 F 81 16 152/84 H 96 07/03/19 06:42 99 07/03/19 06:41 101 H 22 H 99 07/03/19 06:38 101 H 22 H 99 07/03/19 04:01 98.3 F 103 H 20 165/88 H 93 L 07/03/19 01:47 76 20 Weight Admit Weight 84 lb 6.4 oz Weight 84 lb 6.4 oz I&O: 07/02/19 07/03/19 07/04/19 06:59 06:59 06:59 Intake Total 1760 1620 200 Output Total 950 Balance 810 1620 200 Result Diagrams: 07/02/19 05:23 07/02/19 05:23 Additional Labs: Accuchecks 07/03/19 07/02/19 07/02/19 04:03 19:24 16:32 POC Glucose 130 H 125 H 123 H 07/02/19 05:17 POC Glucose 150 H Hospitalist ROS - Medication Medications: Active Medications Generic Name Dose Route Start Last Admin Trade Name Freq PRN Reason Stop Dose Admin Albuterol/Ipratropium 3 ml 07/01/19 18:30 07/03/19 10:18 Duoneb NEB 3 ml [id number] JANENE Administration Arformoterol Tartrate 15 mcg 07/01/19 18:30 07/03/19 06:38 Brovana NEB 15 mcg BID-RT JANNEE Administration Doxycycline Hyclate 100 mg 07/01/19 21:00 07/03/19 10:14 Vibramycin PO Not Given BID JANENE Enoxaparin Sodium 40 mg 07/02/19 09:00 07/03/19 10:14 Lovenox SC Not Given 0900 JANENE Famotidine 20 mg 07/01/19 21:00 07/03/19 08:50 Pepcid PO 20 mg BID JANENE Administration Guaifenesin 600 mg 07/01/19 21:00 07/03/19 10:14 Mucinex PO Not Given Q12HR JANENE Methylprednisolone Sodium Succinate 20 mg 07/02/19 12:00 07/03/19 05:30 Solu-Medrol IVP 20 mg Q6HR JANENE Administration Sertraline HCl 25 mg 07/01/19 21:00 07/02/19 20:43 Zoloft PO 25 mg HS JANENE Administration - Exam General Appearance: awake alert Eye: PERRL, anicteric sclera ENT: no oropharyngeal lesions, moist mucosa Neck: supple, no JVD Heart: RRR, no murmur Respiratory: no wheezes, no rales Gastrointestinal: soft, non-tender, non-distended, normal bowel sounds Extremities: no cyanosis, no edema Neurological: cranial nerve grossly intact, no focal deficits Psychiatric: normal affect, A&O x 3 Hosp A/P (1) Acute and chronic respiratory failure with hypoxia Code(s): J96.21 - ACUTE AND CHRONIC RESPIRATORY FAILURE WITH HYPOXIA Status: Resolved (2) COPD exacerbation Code(s): J44.1 - CHRONIC OBSTRUCTIVE PULMONARY DISEASE W (ACUTE) EXACERBATION Status: Acute (3) Moderate protein-calorie malnutrition Code(s): E44.0 - MODERATE PROTEIN-CALORIE MALNUTRITION Status: Chronic (4) Physical deconditioning Code(s): R53.81 - OTHER MALAISE Status: Chronic (5) Depression Code(s): F32.9 - MAJOR DEPRESSIVE DISORDER, SINGLE EPISODE, UNSPECIFIED Status : Chronic Qualifiers: Depression Type: major depressive disorder (6) Adult failure to thrive Status: Chronic - Plan is on doxy, steroids, nebs, elipta inh, pulmicort inh PT to mobilize as tolerated encourage po intake, ensure 1 can tid hemostable dc plan to snf if pt agrees, d/w and
[2019-07-03] MEDS ORDERED: predniSONE 20 MG TAB PO SCH (14:15)
[2019-07-04] MEDS: Famotidine 20 MG TAB PO SCH (08:48)
[2019-07-04] MEDS: guaiFENesin ER 600 MG TAB PO SCH (08:48)
[2019-07-04] MEDS: Enoxaparin Sodium 40 MG/0.4 ML SYRINGE SC SCH (08:48)
[2019-07-04] MEDS: Doxycycline 100 MG CAP PO SCH (08:50)
[2019-07-04] MEDS ORDERED: predniSONE 20 MG TAB PO SCH (09:00)
--- NOTE | 2019-07-04 09:06 | PRG ---
DATE OF SERVICE: 07/04/2019 SUBJECTIVE: The patient is doing fairly well. She has decided to go to [facility] if she can. OBJECTIVE: VITAL SIGNS: Temperature 97, pulse 95, blood pressure 135/88, and O2 saturation 98% on 2.5 L. HEENT: Unremarkable. NECK: No JVD. LUNGS: Clear, but distant. CARDIAC: S1 and S2. Regular. ABDOMEN: Soft. EXTREMITIES: No edema. ASSESSMENT: Chronic obstructive pulmonary disease with exacerbation, now probably back to baseline. PLAN: She is stable for transfer to next level of care, whether that be home or assisted living. Job ID: [id number]
--- NOTE | 2019-07-04 11:17 | PDOC.HOSPP ---
- Subjective Encounter Date: 07/04/19 Encounter Time: 07:45 Subjective: breathing better, no sob or anxiety attacks - Objective Vital Signs & Weight: Vital Signs (12 hours) Pulse Resp Pulse Ox 07/04/19 08:00 97 07/04/19 06:53 80 16 07/04/19 04:00 99 07/04/19 00:20 98 07/03/19 23:58 95 22 H 97 Weight Admit Weight 84 lb 6.4 oz Weight 84 lb 6.4 oz I&O: 07/03/19 07/04/19 07/05/19 06:59 06:59 06:59 Intake Total 1620 2317 Balance 1620 2317 Result Diagrams: 07/02/19 05:23 07/02/19 05:23 Additional Labs: Accuchecks 07/04/19 07/03/19 07/03/19 04:04 19:27 16:50 POC Glucose 97 121 H 176 H 07/03/19 11:29 POC Glucose 106 Hospitalist ROS - Medication Medications: Active Medications Generic Name Dose Route Start Last Admin Trade Name Andrésq PRN Reason Stop Dose Admin Albuterol/Ipratropium 3 ml 07/03/19 13:00 07/04/19 06:53 Duoneb NEB 3 ml [id number] JANENE Administration Arformoterol Tartrate 15 mcg 07/01/19 18:30 07/03/19 18:49 Brovana NEB 15 mcg BID-RT JANENE Administration Doxycycline Hyclate 100 mg 07/01/19 21:00 07/04/19 08:50 Vibramycin PO Not Given BID JANENE Enoxaparin Sodium 40 mg 07/02/19 09:00 07/04/19 08:48 Lovenox SC 40 mg 0900 JANENE Administration Famotidine 20 mg 07/01/19 21:00 07/04/19 08:48 Pepcid PO 20 mg BID JANENE Administration Guaifenesin 600 mg 07/01/19 21:00 07/04/19 08:48 Mucinex PO Not Given Q12HR JANENE Prednisone 20 mg 07/04/19 09:00 07/04/19 08:48 Prednisone PO 20 mg DAILY JANENE Administration Sertraline HCl 25 mg 07/01/19 21:00 07/03/19 20:05 Zoloft PO 25 mg HS JANENE Administration Sodium Chloride 10 ml 07/03/19 21:00 07/04/19 08:50 Flush - Normal Saline IVF Not Given Q12HR JANENE - Exam General Appearance: awake alert Eye: PERRL, anicteric sclera ENT: no oropharyngeal lesions, moist mucosa Neck: supple, no JVD Heart: RRR, no murmur Respiratory: no wheezes, no rales, rhonchi Gastrointestinal: soft, non-tender, non-distended, normal bowel sounds Extremities: no cyanosis, no edema Neurological: cranial nerve grossly intact, no focal deficits Psychiatric: A&O x 3 Hosp A/P (1) Acute and chronic respiratory failure with hypoxia Code(s): J96.21 - ACUTE AND CHRONIC RESPIRATORY FAILURE WITH HYPOXIA Status: Resolved (2) COPD exacerbation Code(s): J44.1 - CHRONIC OBSTRUCTIVE PULMONARY DISEASE W (ACUTE) EXACERBATION Status: Acute (3) Moderate protein-calorie malnutrition Code(s): E44.0 - MODERATE PROTEIN-CALORIE MALNUTRITION Status: Chronic (4) Physical deconditioning Code(s): R53.81 - OTHER MALAISE Status: Chronic (5) Depression Code(s): F32.9 - MAJOR DEPRESSIVE DISORDER, SINGLE EPISODE, UNSPECIFIED Status : Chronic Qualifiers: Depression Type: major depressive disorder (6) Adult failure to thrive Status: Chronic - Plan is on doxy, steroids, nebs, elipta inh, pulmicort inh PT to mobilize as tolerated encourage po intake, ensure 1 can tid hemostable may dc if placement or asst living is ready, d/w and
[2019-07-04 11:32] VITALS: BP 114/69; TEMP 98.4
[2019-07-04] MEDS: Arformoterol 15 MCG/2 ML NEB NEB SCH (13:50)
--- NOTE | 2019-07-04 15:13 | DIS ---
DATE OF ADMISSION: 07/01/2019 DATE OF DISCHARGE: 07/04/2019 DISCHARGE DISPOSITION: [facility] with [facility]. PRIMARY DISCHARGE DIAGNOSES: Acute on chronic obstructive pulmonary disease exacerbation, acute on chronic respiratory failure with hypoxia, physical deconditioning. SECONDARY DISCHARGE DIAGNOSES: Moderate protein malnutrition, depression, and failure to thrive. PROCEDURES DONE DURING HOSPITALIZATION: Chest x-ray done showed no acute infiltrate. Hemoglobin and hematocrit of 11 and 34, platelet count is 193. Blood gas done on admission showed a pH of 7.33, pCO2 of 49, pO2 of 143. BUN is 13, creatinine 0.5. Troponin x2 negative. BNP is 15. INPATIENT CONSULT: Dr. Bravo for Pulmonology. DISCHARGE MEDICATIONS: 1. DuoNeb q.6 hourly. 2. Ellipta inhaler daily. 3. Symbicort 160/4.5 mcg two puffs twice daily. 4. Prednisone 10 mg daily. 5. Zoloft 25 mg p.o. at bedtime. 6. Pepcid 20 mg twice daily. DISCHARGE PLAN: The patient to follow up with Dr. Talita Waterman, her primary care physician in [address] Bravo in 2 to 3 weeks. BRIEF COURSE DURING HOSPITALIZATION: The patient initially was brought to emergency room for difficulty breathing and was initially placed on BiPAP on arrival here. 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 In view of above history, the patient was placed to medical floor after she was weaned off BiPAP in the ER. She has had consultation with Dr. Bravo for Pulmonology. The patient was on empiric IV antibiotics, DuoNeb, and IV steroids. She has responded well to above measures. She has severe deconditioning and is being discharged to assisted living facility. She has been cleared for discharge by Dr. Bravo as well. Ms. Paredes needs to continue her Trilogy ventilator as before at nighttime. She is continued on her home dose of prednisone and DuoNebs as before. Please note, I have seen and examined the patient on the day of discharge. Job ID: [id number]
== END 2019-07-04 17:08 | disposition home or self-care (01) | DRG 189 ==
LOC: ERS 06:31 → ERHOLD 07:57 → T4-A 15:01
PROVIDERS: ADMIT Internal Medicine; ATTEND Internal Medicine
PROC: 5A09357 Assistance with Respiratory Ventilation, Less than 24 Consecutive Hours, Continuous Positive Airway Pressure (ICD-10-PCS; principal; 2019-07-02)
DX: J96.21 Acute and chronic respiratory failure with hypoxia (principal); J44.1 Chronic obstructive pulmonary disease with (acute) exacerbation; E44.0 Moderate protein-calorie malnutrition; Z68.1 Body mass index [BMI] 19.9 or less, adult; F32.9 Major depressive disorder, single episode, unspecified; R40.2362 Coma scale, best motor response, obeys commands, at arrival to emergency department; R40.2142 Coma scale, eyes open, spontaneous, at arrival to emergency department; R40.2252 Coma scale, best verbal response, oriented, at arrival to emergency department; Z99.81 Dependence on supplemental oxygen; Z88.1 Allergy status to other antibiotic agents; Z87.891 Personal history of nicotine dependence; Z90.710 Acquired absence of both cervix and uterus; R62.7 Adult failure to thrive; F41.9 Anxiety disorder, unspecified
CPT/HCPCS: 36415; 36416; 71045; 80048; 80053; 82805; 83880; 84484; 85025; 93005; 94640; 94644; 94660; J1650; J2920; J7512; J7611; J7620

== ENCOUNTER 2019-07-11 00:37 | Inpatient (IN) | payer MEDICARE, OTHER ==
[2019-07-11 00:53] LABS: Actual Bicarbonate (HCO3a) 28.3 mEq/L (22-28); Analyzer IN Cardio ER; Base Excess (BEa) 0.2 mEq/L (-2.0 to +3.0); Calcium, Ionized 1.23 mmol/L (1.12-1.30); Carboxyhemoglobin (COHb) 0.2 gm% (0.0-3.0); Hemoglobin (Hb) 13.3 g/dL (12.0-16.0); Potassium - ABG Lab 4.21 mmol/L (3.70-5.30); pH, Arterial 7.28 (7.35-7.45)
[2019-07-11 00:54] LABS: CO2 Tension 61.7 mmHg (35.0-45.0); Puncture Site RR
[2019-07-11 00:55] LABS: ALV-art Gradient 53.775 (0-20)
[2019-07-11 01:02] LABS: Band 1 % (5-11); Hemoglobin 12.7 g/dL (12.0-16.0); Lymphocytes 42 % (21-51); MDiff Complete? YES; Mean Corpuscular HGB CONC 32.7 g/dL (32.0-36.0); Mean Corpuscular Hemoglobin 28.8 pg (27.0-31.0); Mean Corpuscular Volume 88.1 fL (78.0-98.0); Monocytes 8 % (0-10); Neutrophil 45 % (42-75); Platelet Count 209 thou/uL (130-400); Platelet Morphology Comment Appears Adequate; RBC Distribution Width 13.3 % (11.5-14.5); Reactive Lymphocytes 4 % (0-10); Red Blood Cell (RBC) Count 4.43 mill/uL (4.20-5.40); White Blood Cell (WBC) Count 18.9 thou/uL (4.8-10.8)
[2019-07-11 01:17] LABS: ALT (SGPT) 16 U/L (8-55); AST (SGOT) 25 U/L (5-34); Alkaline Phosphatase 74 U/L (40-110); Anion Gap 16 mmol/L (10-20); BUN (Urea Nitrogen) 19 mg/dL (9.8-20.1); Bilirubin, Total 0.5 mg/dL (0.2-1.2); CK (CPK) 34 U/L (29-168); Calc. Creatinine Clearance 0 mL/min (70-130); Carbon Dioxide 27 mmol/L (23-31); Chloride 98 mmol/L (98-107); Estimated GFR-MDRD Greater than 90; Globulin 2.4 g/dL (2.4-3.5); Glucose 141 mg/dL (83-110); Potassium 5.2 mmol/L (3.5-5.1); Protein, Total 6.4 g/dL (6.0-8.3); Sodium 136 mmol/L (136-145)
[2019-07-11] MEDS ORDERED: Albuterol Sulfate 2.5 mg/0.5 ml Neb ONE (01:20)
[2019-07-11 03:40] VITALS: BMI 15.7
--- NOTE | 2019-07-11 04:48 | PDOC.HHP ---
Hospitalist HPI - History of Present Illness shortness of breath History of Present Illness: This is an 78 year old female with past medical history of stage IV COPD, depression, who presented to the hospital with shortness of breath. The patient states her shortness of breath started last night at 11:45 pm. She has been using incruse ellipta, symbicort twice daily, duoneb and even used an albuterol inhaler without significant relief. She can only walk from the bed to the door before she becomes short of breath. She denies orthopnea or chest pain. She has been having an intermittent dry cough with wheezes for the past few days. She has been using 2L of oxygen during the day, and BIPAP at night. She does not know her BIPAP settings. She denies recent travel history. She denies sore throat, runny nose, fevers or chills. She was discharged from the hospital last week for COPD exacerbation. She was supposed to follow up with Dr. Bravo but has not seen him yet. ED Course: When EMS arrived, patient was saturating in the 80s. She was placed on CPAP empirically. She had chest X ray which appears to show hyperinflation. EKG shows sinus tachycardia with nonspecific ST abnormality. Patient was noted to be breathing at a respiratory rate of 30-40 per ER provider. ABG showed pH 7.28 , pCO2 of 67, PO2 of 83. Patient was placed on BIPAP but she refused intubation. She refused continuous albuterol per ER doctor. Hospitalist ROS - Review of Systems Constitutional: denies: fever, chills ENT: denies: ear pain, ear discharge Respiratory: reports: cough (intermittent), shortness of breath Cardiovascular: denies: chest pain, palpitations, orthopnea Gastrointestinal: denies: nausea, vomiting, abdominal pain, diarrhea Genitourinary: denies: dysuria, frequency, incontinence, hematuria Musculoskeletal: denies: neck pain, shoulder pain, arm pain, back pain - Medication Medications: Symbicort bid Duoneb q5 hours Incruse ellipta Prednisone 10 mg daily Sertraline Hospitalist History - Past Medical History Other Medical History: COPD Depression - Past Surgical History Past Surgical History: reports: Hysterectomy - Family History Other Family History: No lung problems in the family - Social History Smoking Status: Former smoker (Smoked for thirty years, quit 15 yeras ago) Alcohol: reports: None - Exam General Appearance: NAD General - other findings: on BIPAP Eye: PERRL, anicteric sclera ENT: normocephalic atraumatic, no oropharyngeal lesions Neck: supple, no JVD Heart: RRR, no murmur, no gallops, no rubs Respiratory - other findings: diffusely diminished breath sounds, no wheezing Gastrointestinal: soft, non-tender, non-distended, normal bowel sounds Extremities: no cyanosis, no clubbing, no edema Hospitalist Results - Labs Result Diagrams: 07/11/19 00:46 07/11/19 00:46 Lab results: WBC 18.9 thou/uL (4.8-10.8) H 07/11/19 00:46 Hgb 12.7 g/dL (12.0-16.0) 07/11/19 00:46 Hct 39.0 % (36.0-47.0) 07/11/19 00:46 MCV 88.1 fL (78.0-98.0) 07/11/19 00:46 Plt Count 209 thou/uL (130-400) 07/11/19 00:46 Band Neuts % (Manual) 1 % (5-11) L 07/11/19 00:46 ABG pH 7.28 (7.35-7.45) L 07/11/19 00:50 ABG pCO2 61.7 mmHg (35.0-45.0) H* 07/11/19 00:50 ABG pO2 83.0 mmHg (> 60.0) H 07/11/19 00:50 Sodium 136 mmol/L (136-145) 07/11/19 00:46 Potassium 5.2 mmol/L (3.5-5.1) H 07/11/19 00:46 Chloride 98 mmol/L (98-107) 07/11/19 00:46 Carbon Dioxide 27 mmol/L (23-31) 07/11/19 00:46 BUN 19 mg/dL (9.8-20.1) 07/11/19 00:46 Creatinine 0.49 mg/dL (0.6-1.1) L 07/11/19 00:46 Glucose 141 mg/dL (83-110) H 07/11/19 00:46 Lactic Acid 1.0 mmol/L (0.5-2.2) 07/11/19 00:46 Calcium 9.0 mg/dL (7.8-10.44) 07/11/19 00:46 Total Bilirubin 0.5 mg/dL (0.2-1.2) 07/11/19 00:46 AST 25 U/L (5-34) 07/11/19 00:46 ALT 16 U/L (8-55) 07/11/19 00:46 Alkaline Phosphatase 74 U/L (40-110) 07/11/19 00:46 Creatine Kinase 34 U/L (29-168) 07/11/19 00:46 Troponin I Less than 0.010 ng/mL (< 0.028) 07/11/19 00:46 B-Natriuretic Peptide 15.8 pg/mL (0-100) 07/11/19 00:46 Serum Total Protein 6.4 g/dL (6.0-8.3) 07/11/19 00:46 Albumin 4.0 g/dL (3.4-4.8) 07/11/19 00:46 Additional comment: Chest X ray: image reviewed. Hyperinflation. - EKG Interpretation EKG: EKG: sinus tachycardia, nonspecific ST abnormality Hospitalist H&P A/P - Plan Plan: This is an 78 year old female with past medical history of COPD who presented to the ER with worsening shortness of breath, admitted for recurrent COPD exacerbation Acute hypoxic/hypercapneic respiratory failure secondary to COPD exacerbation - chest Xray shows hyperinflation - EKG shows sinus tachycardia. First troponin negative, will continue to trend. Will check d-dimer. Repeat ABG - will order IV steroids, duoneb, albuterol, symbicort, incruse ellipta. Start azithromycin as well - pulmonology consult - consider palliative care consult Hyperkalemia - potassium 5.2, QTGC 430 - will give insulin/dextrose then recheck Leukocytosis - WBC 18.9. No fevers. Will order azithromycin for possible mild bronchitis Depression - continue sertraline DVT prophylaxis: lovenox Code status: DNR
[2019-07-11] MEDS ORDERED: Insulin Regular 300 UNITS/3 ML VIAL IVP SCH (04:57)
[2019-07-11] MEDS ORDERED: Dextrose 50% Abboject 50 ML SYRINGE SLOW IVP SCH (05:00)
--- NOTE | 2019-07-11 05:28 | PDOC.FMACP ---
Advance Care Planning - Note Summary: Advanced Care Planning was discussed. The diagnosis, prognosis and goals of care were discussed. Appropriate forms and documentation to accomplish the goals of care were discussed. All questions were answered. The Palliative Care Team will be engaged to assist with completion of any outstanding forms that are needed. Patient wishes to be DNR/DNI. She is okay with BIPAP. HCAP would be Yolande her daughter Time Spent (mins): 40
[2019-07-11] MEDS: methylPREDNISolone Sod Succ/PF 125 MG/2 ML VIAL IVP SCH ×2 (05:36→13:29)
[2019-07-11] MEDS ORDERED: Azithromycin 500 MG in Sodium Chloride 0.9% 250 ML 250 ML IVPB SCH (06:00)
[2019-07-11 06:29] LABS: CKMB 2.4 ng/mL (0-6.6)
[2019-07-11] MEDS ORDERED: Albuterol Sulfate 2.5 mg/3 ml Neb EZPAP PRN (07:00)
[2019-07-11 07:32] LABS: Actual Bicarbonate (HCO3a) 28.4 mEq/L (22-28); Base Excess (BEa) 2.1 mEq/L (-2.0 to +3.0); CO2 Tension 52.1 mmHg (35.0-45.0); Carboxyhemoglobin (COHb) 0.3 gm% (0.0-3.0); Hemoglobin (Hb) 12.2 g/dL (12.0-16.0); O2 Tension (PaO2) 107.5 mmHg (> 60.0); Potassium - ABG Lab 4.11 mmol/L (3.70-5.30); pH, Arterial 7.36 (7.35-7.45)
[2019-07-11 07:33] LABS: ALV-art Gradient 41.275 (0-20); Puncture Site RRA
--- NOTE | 2019-07-11 07:52 | RAD ---
Portable frontal chest radiograph: 07/11/2019 COMPARISON: 07/01/2019 HISTORY: COPD, respiratory distress FINDINGS: Persistent increased linear interstitial density with pulmonary hyperinflation, consistent with the provided history of COPD. Heart and mediastinal contours are unchanged. No focal consolidation or alveolar edema. IMPRESSION: Chronic stable findings as detailed above.
[2019-07-11] MEDS: Mometasone 200 MCG HFA INHALER INH SCH ×2 (07:53→18:45)
[2019-07-11] MEDS ORDERED: Non-Formulary Item 1 EACH (Umeclidinium Bromide [Incruse Ellipta] 1 INH) IH SCH (09:00)
[2019-07-11] MEDS: Enoxaparin Sodium 40 MG/0.4 ML SYRINGE SC SCH (11:00)
--- NOTE | 2019-07-11 11:26 | PDOC.HOSPP ---
- Subjective Encounter Date: 07/11/19 Encounter Time: 11:25 Subjective: Ms. Paredes was seen today in follow-up of COPD exacerbation. She is feeling better, and is off BiPAP. She still has severe weakness with just minimal movement. - Objective Vital Signs & Weight: Vital Signs (12 hours) Temp Pulse Resp BP Pulse Ox 07/11/19 08:00 100 07/11/19 07:39 97.9 F 07/11/19 07:26 95 07/11/19 07:21 95 26 H 99 07/11/19 03:47 97.8 F 07/11/19 03:45 100 07/11/19 03:34 92 07/11/19 03:30 98.4 F 98 22 H 133/76 100 Weight Weight 89 lb 1.6 oz Most Recent Monitor Data Heart Rate from ECG 93 NIBP 133/76 NIBP BP-Mean 95 Respiration from ECG 23 SpO2 100 I&O: 07/10/19 07/11/19 07/12/19 06:59 06:59 06:59 Intake Total 250 Balance 250 Result Diagrams: 07/11/19 00:46 07/11/19 00:46 Hospitalist ROS - Medication Medications: Active Medications Generic Name Dose Route Start Last Admin Trade Name Freq PRN Reason Stop Dose Admin Albuterol/Ipratropium 3 ml 07/11/19 06:30 07/11/19 07:21 Duoneb EZPAP 3 ml [id number] JANENE Administration Enoxaparin Sodium 40 mg 07/11/19 09:00 07/11/19 11:00 Lovenox SC 40 mg 0900 JANENE Administration Azithromycin 500 mg/ Sodium 250 mls @ 250 mls/hr 07/11/19 06:00 07/11/19 05: 31 Chloride IVPB 250 mls Q24HR JANENE Administration Methylprednisolone Sodium Succinate 40 mg 07/11/19 06:00 07/11/19 05:36 Solu-Medrol IVP 40 mg Q6HR JANENE Administration Mometasone Furoate 2 puff 07/11/19 06:30 07/11/19 07:53 Asmanex Hfa 200 Mcg INH Not Given BID-RT JANENE - Exam Eye: PERRL Heart: RRR, no murmur, no gallops, no rubs, normal peripheral pulses Respiratory: CTAB (with the exception of a few wheezes) Gastrointestinal: soft, non-tender, non-distended, normal bowel sounds, no palpable masses, no hepatomegaly Extremities: no cyanosis, 1+ LE edema (trace edema around the ankles) Hosp A/P (1) Acute on chronic respiratory failure with hypoxemia Code(s): J96.21 - ACUTE AND CHRONIC RESPIRATORY FAILURE WITH HYPOXIA Status: Acute (2) COPD exacerbation Code(s): J44.1 - CHRONIC OBSTRUCTIVE PULMONARY DISEASE W (ACUTE) EXACERBATION Status: Acute - Plan * Acute on chronic respiratory failure due to COPD- discussed with Dr. Kang * Continue Duonebs and steroids * Continue Azithromycin and Long- acting beta agonist * BiPAP as needed
[2019-07-11] MEDS ORDERED: Furosemide 20 MG/2 ML VIAL SLOW IVP SCH (12:15)
--- NOTE | 2019-07-11 12:29 | CON ---
DATE OF CONSULTATION: 07/11/2019 SERVICE: Pulmonary Medicine. REASON FOR CONSULTATION: ICU patient. HISTORY OF PRESENT ILLNESS: The patient is an 78-year-old white female with past medical history significant for chronic hypercapnic and hypoxic respiratory failure, associated with advanced lung disease. It is her understanding that she has COPD. She was recently in the hospital last week. She was dismissed on when she was nearly back to baseline. Ever since being discharged, however, she sat home in a chair or in a bed, requiring on others for all care. She had a slow increase in shortness of breath, though her cough and sputum production remain at baseline. She presented back to the emergency department because of her increasing dyspnea. She does not have any symptoms at night. She uses her ventilator in the nighttime. Her legs have been swelling more than typical. PAST MEDICAL HISTORY: 1. Chronic hypoxic and hypercapnic respiratory failure. 2. COPD, advanced. 3. Major depressive disorder.. 4. Gastroesophageal reflux disease. PAST SURGICAL HISTORY: Hysterectomy. FAMILY HISTORY: Noncontributory. SOCIAL HISTORY: She has a remote history of smoking. No alcohol or illicit drug use reported. She has no exposure to chemicals, dust, asbestos, or tuberculosis. ALLERGIES: FLUOROQUINOLONES. MEDICATIONS: List of the patient's inpatient medications were reviewed. Multiple updates were made at this time. I have added some Lasix. REVIEW OF SYSTEMS: General; head, ears, eyes, nose, and throat; cardiovascular; respiratory; GI; ; musculoskeletal; neurologic; and skin is negative except as mentioned in the HPI. PHYSICAL EXAMINATION: VITAL SIGNS: Afebrile, pulse 97, blood pressure 133/76, respirations 21, and saturation 99% on 3 L nasal cannula. GENERAL: The patient is awake and alert, in no apparent distress. LUNGS: There is reduced air entry. There is a prolonged expiratory phase. I do not appreciate any wheezing, but she is not really moving enough air to appreciate adventitious sounds. One or two crackles are present in bibasilar regions. HEART: Normal rate. Regular. ABDOMEN: Soft, nontender, and nondistended. Bowel sounds are positive. MUSCULOSKELETAL: No cyanosis or clubbing. There is 2+ pitting in the bilateral lower extremities. NEUROLOGIC: Grossly nonfocal. LABORATORY DATA: WBC 18.9, hemoglobin 12.7, and differential remains unremarkable. D-dimer 1.62. A pH of 7.36, pCO2 of 52, and pO2 of 107 while wearing 30% FiO2, delivered via BiPAP at that moment. Basic metabolic profile is unremarkable except for potassium of 5.2. Liver function studies are unremarkable. BNP 15.8. Troponin is gently up trending to 0.06. Lactate 1.0. IMAGING STUDIES: Chest x-ray demonstrates no acute cardiopulmonary abnormality. The lungs are hyperinflated. There is subtle blunting to the left costophrenic angle, suggestive of a possible small effusion there. ASSESSMENT: 1. [id number] hypoxic and hypercapnic respiratory failure. 2. Chronic obstructive pulmonary disease with acute exacerbation, mild. 3. [id number] myocardial infarction secondary to demand event, likely from her respiratory failure. 4. Volume overload. 5. Coronary artery disease as witnessed on CT of the chest. DISCUSSION AND PLAN: I will give the patient a dose of Lasix today and tomorrow morning. She does have coronary calcifications. Additionally, she has enlarged left atrium, enlarged left ventricle, enlarged right ventricle, and the right atrium is decompressed. As such, my suspicion is that we are dealing with a little bit of fluid overload superimposed on top of very severe lung disease. Echocardiogram will be obtained. She does not need antibiotics as she has only a mild COPD exacerbation (her only symptom is increased dyspnea on exertion without change in cough or sputum production). As such, we will deescalate to just p.o. steroids. Critical Care will follow along. Once her home ventilator arrives, she can be transitioned to the floor. 70 minutes have been devoted to this patient in various activities. I personally reviewed all imaging studies and laboratory data noted within this document. For fifty percent of this time, I was interacting with the patient at the bedside or coordinating care with the care team. For the remainder of the time I was immediately available to the patient in the hospital unit. Job ID: [id number] [facility]
[2019-07-12 04:11] LABS: Anion Gap 7 mmol/L (10-20); BUN (Urea Nitrogen) 20 mg/dL (9.8-20.1); Calc. Creatinine Clearance 60 mL/min (70-130); Calcium 8.5 mg/dL (7.8-10.44); Carbon Dioxide 33 mmol/L (23-31); Chloride 99 mmol/L (98-107); Estimated GFR-MDRD Greater than 90; Glucose 93 mg/dL (83-110); Magnesium 2.2 mg/dL (1.6-2.6); Potassium 3.7 mmol/L (3.5-5.1); Sodium 135 mmol/L (136-145)
[2019-07-12 04:16] LABS: Troponin I 0.214 ng/mL (< 0.028)
[2019-07-12] MEDS: Mometasone 200 MCG HFA INHALER INH SCH ×2 (05:13→18:27)
[2019-07-12] MEDS: Enoxaparin Sodium 40 MG/0.4 ML SYRINGE SC SCH (08:48)
[2019-07-12] MEDS: predniSONE 20 MG TAB PO SCH (08:48)
[2019-07-12] MEDS: Furosemide 20 MG/2 ML VIAL SLOW IVP SCH (08:48)
--- NOTE | 2019-07-12 11:21 | PDOC.HOSPP ---
- Subjective Encounter Date: 07/12/19 Encounter Time: 11:19 Subjective: Ms. Paredes was seen today in follow-up of COPD exacerbation. She is sitting up in a chair when I came to see her. She feels a little better. - Objective Vital Signs & Weight: Vital Signs (12 hours) Temp Pulse Resp Pulse Ox 07/12/19 10:41 100 18 99 07/12/19 07:54 98.5 F 07/12/19 07:42 100 07/12/19 05:08 86 07/12/19 04:00 97.2 F L 07/12/19 02:21 76 07/12/19 00:00 98.5 F Weight Admit Weight 89 lb 1.6 oz Weight 89 lb 1.6 oz Most Recent Monitor Data Heart Rate from ECG 94 NIBP 78/47 NIBP BP-Mean 57 Respiration from ECG 30 SpO2 100 I&O: 07/11/19 07/12/19 07/13/19 06:59 06:59 06:59 Intake Total 250 140 Output Total 2100 Balance 250 -1960 Result Diagrams: 07/11/19 00:46 07/12/19 03:37 Hospitalist ROS - Medication Medications: Active Medications Generic Name Dose Route Start Last Admin Trade Name Freq PRN Reason Stop Dose Admin Albuterol/Ipratropium 3 ml 07/11/19 06:30 07/12/19 10:41 Duoneb EZPAP 3 ml [id number] JANENE Administration Enoxaparin Sodium 40 mg 07/11/19 09:00 07/12/19 08:48 Lovenox SC 40 mg 0900 JANENE Administration Furosemide 20 mg 07/12/19 09:00 07/12/19 08:48 Lasix SLOW IVP 07/13/19 09:01 20 mg DAILY JANENE Administration Mometasone Furoate 2 puff 07/11/19 06:30 07/12/19 05:13 Asmanex Hfa 200 Mcg INH Not Given BID-RT JANENE Prednisone 40 mg 07/12/19 08:00 07/12/19 08:48 Prednisone PO 07/15/19 08:01 40 mg QAM-WM JANENE Administration Sertraline HCl 25 mg 07/11/19 21:00 07/11/19 20:31 Zoloft PO 25 mg HS JANENE Administration - Exam Eye: PERRL Heart: RRR, no murmur, no gallops, no rubs, normal peripheral pulses Respiratory: CTAB (with poor airmovement, only an occasional wheeze) Gastrointestinal: soft, non-tender, non-distended Extremities: no cyanosis, no clubbing, 1+ LE edema (trace ankle edema) Hosp A/P (1) Acute on chronic respiratory failure with hypoxemia Code(s): J96.21 - ACUTE AND CHRONIC RESPIRATORY FAILURE WITH HYPOXIA Status: Acute (2) COPD exacerbation Code(s): J44.1 - CHRONIC OBSTRUCTIVE PULMONARY DISEASE W (ACUTE) EXACERBATION Status: Acute - Plan * Acute on chronic respiratory failure due to COPD-slow improvement- continue Duonebs and steroids * Azithromycin has been discontinued * She has her home ventilator at the bedside * Ambulate * Disposition as per [facility]
[2019-07-12] MEDS ORDERED: Potassium Chloride 20 MEQ TAB PO SCH (11:45)
--- NOTE | 2019-07-12 11:52 | PRG ---
DATE OF SERVICE: 07/12/2019 SERVICE: Pulmonary Medicine. INTERVAL HISTORY: The patient is doing a little better from respiratory standpoint. She took a break off her BiPAP this morning, and she indicates that she feels like she is breathing really well, and is quite refreshed. Otherwise, her appetite is improved, and there were no overnight events. PHYSICAL EXAMINATION: VITAL SIGNS: Afebrile, blood pressure 129/89, pulse is 93, respirations 18, and saturation 99% on 2 L nasal cannula. GENERAL: The patient is awake and alert, in no apparent distress. LUNGS: Decent air entry with no prolonged expiratory phase or wheezing appreciated. HEART: Normal rate, regular. ABDOMEN: Soft, nontender, and nondistended. Bowel sounds are positive. MUSCULOSKELETAL: No cyanosis or clubbing. There is 2+ pitting in bilateral lower extremities with subtle improvements. NEUROLOGIC: Grossly nonfocal. LABORATORY DATA: Basic metabolic profile is unremarkable. Her bicarb is 33 and gently up-trending. Magnesium 2.2, calcium 8.5. Potassium 3.7, has significantly improved. ASSESSMENT: 1. Acute on chronic hypoxic and hypercapnic respiratory failure, improving. 2. Chronic obstructive pulmonary disease with acute exacerbation, mild. 3. Non-ST elevation myocardial infarction secondary to demand event. 4. Volume overload, improving. 5. Coronary artery disease, witnessed on CT chest. DISCUSSION AND PLAN: The patient is doing great from respiratory standpoint. We will continue to diurese her down to euvolemia. Potassium will be replaced today. She may benefit from a heart evaluation in the outpatient setting. She can be transitioned out of the ICU to the medical and/or telemetry unit, but when she goes to the floor, she will need to take her home ventilator to use on an as-needed basis, and at night. Dr. Kaba will cover the patient over the weekend, and Dr. Bravo will pick her back up on Monday if she is still in the hospital. Job ID: [id number]
[2019-07-13] MEDS: Mometasone 200 MCG HFA INHALER INH SCH ×2 (06:49→18:54)
[2019-07-13] MEDS: predniSONE 20 MG TAB PO SCH (08:47)
[2019-07-13] MEDS: Enoxaparin Sodium 40 MG/0.4 ML SYRINGE SC SCH (08:48)
[2019-07-13] MEDS: Furosemide 20 MG/2 ML VIAL SLOW IVP SCH (08:48)
--- NOTE | 2019-07-13 12:39 | PDOC.HOSPP ---
- Subjective Encounter Date: 07/13/19 Encounter Time: 08:30 Subjective: breathing better, is eating her breakfast no chest pain or palpitations wants her nebs reduced to q6h - Objective Vital Signs & Weight: Vital Signs (12 hours) Temp Pulse Resp BP BP Pulse Ox Pulse Ox 07/13/19 12:00 98.9 F 86 16 117/76 96 07/13/19 10:43 86 L 07/13/19 10:06 85 16 96 07/13/19 08:08 98.3 F 82 16 111/70 100 07/13/19 08:00 100 07/13/19 06:53 98 07/13/19 06:51 82 16 98 07/13/19 06:49 82 16 98 07/13/19 04:58 98.4 F 79 20 120/77 92 L Pulse Ox Pulse Ox 07/13/19 12:00 07/13/19 10:43 96 94 L 07/13/19 10:06 07/13/19 08:08 07/13/19 08:00 07/13/19 06:53 07/13/19 06:51 07/13/19 06:49 07/13/19 04:58 Weight Admit Weight 89 lb 1.6 oz Weight 89 lb 1.6 oz Most Recent Monitor Data Heart Rate from ECG 86 NIBP 119/78 NIBP BP-Mean 91 Respiration from ECG 22 SpO2 100 I&O: 07/12/19 07/13/19 07/14/19 06:59 06:59 06:59 Intake Total 140 300 Output Total 2100 Balance -1960 300 Result Diagrams: 07/11/19 00:46 07/12/19 03:37 Hospitalist ROS - Medication Medications: Active Medications Generic Name Dose Route Start Last Admin Trade Name Freq PRN Reason Stop Dose Admin Albuterol/Ipratropium 3 ml 07/11/19 06:30 07/13/19 10:06 Duoneb EZPAP 3 ml [id number] JANENE Administration Enoxaparin Sodium 40 mg 07/11/19 09:00 07/13/19 08:48 Lovenox SC 40 mg 0900 JANENE Administration Mometasone Furoate 2 puff 07/11/19 06:30 07/13/19 06:49 Asmanex Hfa 200 Mcg INH 2 puff BID-RT JANENE Administration Prednisone 40 mg 07/12/19 08:00 07/13/19 08:47 Prednisone PO 07/15/19 08:01 40 mg QAM-WM JANENE Administration Sertraline HCl 25 mg 07/11/19 21:00 07/12/19 21:01 Zoloft PO 25 mg HS JANENE Administration - Exam General Appearance: awake alert Eye: PERRL, anicteric sclera ENT: no oropharyngeal lesions, dry oral mucosa Neck: supple, no JVD Heart: RRR, no murmur Respiratory: no wheezes, no rales, rhonchi Gastrointestinal: soft, non-tender, non-distended, normal bowel sounds Extremities: no cyanosis, no edema Neurological: cranial nerve grossly intact, no focal deficits Psychiatric: A&O x 3 Hosp A/P (1) Acute and chronic respiratory failure with hypoxia Code(s): J96.21 - ACUTE AND CHRONIC RESPIRATORY FAILURE WITH HYPOXIA Status: Resolved (2) COPD exacerbation Code(s): J44.1 - CHRONIC OBSTRUCTIVE PULMONARY DISEASE W (ACUTE) EXACERBATION Status: Acute (3) Acute metabolic encephalopathy Code(s): G93.41 - METABOLIC ENCEPHALOPATHY Status: Resolved (4) Adult failure to thrive Status: Chronic (5) Depression Code(s): F32.9 - MAJOR DEPRESSIVE DISORDER, SINGLE EPISODE, UNSPECIFIED Status : Chronic Qualifiers: Depression Type: major depressive disorder (6) Moderate protein-calorie malnutrition Code(s): E44.0 - MODERATE PROTEIN-CALORIE MALNUTRITION Status: Chronic (7) Physical deconditioning Code(s): R53.81 - OTHER MALAISE Status: Chronic - Plan hemostable is on steroids, nebs, zoloft PT to mobilize as tolerated likely dc plan in 24-36hrs echo showed ef of 55%
--- NOTE | 2019-07-13 14:47 | EKG ---
Test Reason : Blood Pressure : / mmHG Vent. Rate : 106 BPM Atrial Rate : 106 BPM P-R Int : 132 ms QRS Dur : 088 ms QT Int : 324 ms P-R-T Axes : 082 059 082 degrees QTc Int : 430 ms Sinus tachycardia Nonspecific ST abnormality Abnormal ECG Confirmed by CHASE LESLIE M.D. ([id number]), social media editor ZITA SMITH ([id number]) on 07/13/2019 2:47:40 PM Referred By: Confirmed By:CHASE LESLIE M.D.
--- NOTE | 2019-07-13 17:13 | PRG ---
DATE OF SERVICE: 07/13/2019 SUBJECTIVE: Ms. Paredes afebrile. She did not wear her noninvasive ventilation last night. She liked what we have better, so I have written an order for using our BiPAP again at least for tonight and tomorrow night, possibly. OBJECTIVE: VITAL SIGNS: Heart rates in the 90s, oximetries in the low 90s, blood pressure 170/76. LUNGS: She has distant breath sounds. HEART: Regular rhythm. ABDOMEN: Soft. EXTREMITIES: Without edema. IMPRESSION: 1. Advanced chronic obstructive pulmonary disease with exacerbation, slightly better. 2. History of noninvasive ventilator at home with a Trilogy ventilator. She wants to wear our BiPAP tonight . We will continue to follow. Job ID: [id number]
[2019-07-14] MEDS: Mometasone 200 MCG HFA INHALER INH SCH ×2 (06:57→19:40)
[2019-07-14] MEDS: predniSONE 20 MG TAB PO SCH (09:02)
[2019-07-14] MEDS: Enoxaparin Sodium 40 MG/0.4 ML SYRINGE SC SCH (09:02)
--- NOTE | 2019-07-14 12:39 | PDOC.HOSPP ---
- Subjective Encounter Date: 07/14/19 Encounter Time: 07:00 Subjective: feels better, no complaints - Objective Vital Signs & Weight: Vital Signs (12 hours) Temp Pulse Resp BP Pulse Ox 07/14/19 12:21 98.2 F 89 18 124/70 94 L 07/14/19 08:17 98.2 F 83 16 110/69 98 07/14/19 08:00 98 07/14/19 07:00 100 07/14/19 06:59 67 16 100 07/14/19 06:57 76 16 100 07/14/19 03:07 86 18 95 Weight Admit Weight 89 lb 1.6 oz Weight 89 lb 1.6 oz Most Recent Monitor Data Heart Rate from ECG 86 NIBP 119/78 NIBP BP-Mean 91 Respiration from ECG 22 SpO2 100 I&O: 07/13/19 07/14/19 07/15/19 06:59 06:59 06:59 Intake Total 300 Balance 300 Result Diagrams: 07/11/19 00:46 07/12/19 03:37 Hospitalist ROS - Medication Medications: Active Medications Generic Name Dose Route Start Last Admin Trade Name Freq PRN Reason Stop Dose Admin Albuterol/Ipratropium 3 ml 07/13/19 19:00 07/14/19 06:59 Duoneb NEB 3 ml [id number] JANENE Administration Albuterol/Ipratropium 3 ml 07/13/19 16:40 07/13/19 16:44 Duoneb NEB 3 ml [id number] PRN Administration SOB &/or Wheezing Enoxaparin Sodium 40 mg 07/11/19 09:00 07/14/19 09:02 Lovenox SC 40 mg 0900 JANENE Administration Mometasone Furoate 2 puff 07/11/19 06:30 07/14/19 06:57 Asmanex Hfa 200 Mcg INH 2 puff BID-RT JANENE Administration Prednisone 40 mg 07/12/19 08:00 07/14/19 09:02 Prednisone PO 07/15/19 08:01 40 mg QAM-WM JANENE Administration Sertraline HCl 25 mg 07/11/19 21:00 07/13/19 19:52 Zoloft PO 25 mg HS JANENE Administration - Exam General Appearance: awake alert Eye: PERRL, anicteric sclera ENT: no oropharyngeal lesions, moist mucosa Neck: supple, no JVD Heart: RRR, no murmur Respiratory: no wheezes, no rales Gastrointestinal: soft, non-tender, non-distended, normal bowel sounds Extremities: no cyanosis, no edema Neurological: cranial nerve grossly intact, no focal deficits Psychiatric: normal affect, A&O x 3 Hosp A/P (1) Acute and chronic respiratory failure with hypoxia Code(s): J96.21 - ACUTE AND CHRONIC RESPIRATORY FAILURE WITH HYPOXIA Status: Resolved (2) COPD exacerbation Code(s): J44.1 - CHRONIC OBSTRUCTIVE PULMONARY DISEASE W (ACUTE) EXACERBATION Status: Acute (3) Acute metabolic encephalopathy Code(s): G93.41 - METABOLIC ENCEPHALOPATHY Status: Resolved (4) Adult failure to thrive Status: Chronic (5) Depression Code(s): F32.9 - MAJOR DEPRESSIVE DISORDER, SINGLE EPISODE, UNSPECIFIED Status : Chronic Qualifiers: Depression Type: major depressive disorder (6) Moderate protein-calorie malnutrition Code(s): E44.0 - MODERATE PROTEIN-CALORIE MALNUTRITION Status: Chronic (7) Physical deconditioning Code(s): R53.81 - OTHER MALAISE Status: Chronic - Plan hemostable is on steroids, nebs, zoloft PT to mobilize as tolerated likely dc plan in am to home, family is trying to get her to asst living facility per patient echo showed ef of 55% her face mask was changed over by her company prior to her arrival here and says it doesn't fit well and is currently using bipap from hospital at night
[2019-07-15] MEDS: Mometasone 200 MCG HFA INHALER INH SCH ×2 (06:28→20:23)
[2019-07-15] MEDS: predniSONE 20 MG TAB PO SCH (07:50)
[2019-07-15] MEDS: Enoxaparin Sodium 40 MG/0.4 ML SYRINGE SC SCH (07:51)
--- NOTE | 2019-07-15 09:45 | PRG ---
DATE OF SERVICE: 07/15/2019 SUBJECTIVE: Ms. Paredes is comfortable, has no complaints. OBJECTIVE: VITAL SIGNS: Temperature 97.8, pulse 78, respirations are 20, O2 sat 97% on 2 L, and blood pressure 123/72. HEENT: Unremarkable. NECK: No adenopathy or JVD. LUNGS: Clear, but distant breath sounds. CARDIAC: S1 and S2. Regular. ABDOMEN: Soft. EXTREMITIES: No edema. ASSESSMENT: End-stage chronic obstructive pulmonary disease. The patient has basically developed an inability to care for self at home and needs to be in a jail. PLAN: I have restarted her prednisone 20 mg a day. Her baseline dose at home was 10 mg a day. This is mainly a placement issue. Job ID: [id number]
--- NOTE | 2019-07-15 12:22 | PDOC.HOSPP ---
- Subjective Encounter Date: 07/15/19 Encounter Time: 09:00 Subjective: feels better, no new complaints ate all of her breakfast this am - Objective Vital Signs & Weight: Vital Signs (12 hours) Temp Pulse Resp BP Pulse Ox 07/15/19 11:08 98.0 F 82 22 H 125/84 96 07/15/19 08:00 97.8 F 78 20 123/72 97 07/15/19 06:25 79 16 98 07/15/19 01:37 91 19 94 L 07/15/19 00:45 91 16 94 L Weight Admit Weight 89 lb 1.6 oz Weight 89 lb 1.6 oz Most Recent Monitor Data Heart Rate from ECG 86 NIBP 119/78 NIBP BP-Mean 91 Respiration from ECG 22 SpO2 100 I&O: 07/14/19 07/15/19 07/16/19 06:59 06:59 06:59 Intake Total 350 Balance 350 Result Diagrams: 07/11/19 00:46 07/12/19 03:37 Hospitalist ROS - Medication Medications: Active Medications Generic Name Dose Route Start Last Admin Trade Name Freq PRN Reason Stop Dose Admin Albuterol/Ipratropium 3 ml 07/13/19 19:00 07/15/19 06:25 Duoneb NEB 3 ml [id number] JANENE Administration Albuterol/Ipratropium 3 ml 07/13/19 16:40 07/13/19 16:44 Duoneb NEB 3 ml [id number] PRN Administration SOB &/or Wheezing Enoxaparin Sodium 40 mg 07/11/19 09:00 07/15/19 07:51 Lovenox SC 40 mg 09 JANENE Administration Mometasone Furoate 2 puff 07/11/19 06:30 07/15/19 06:28 Asmanex Hfa 200 Mcg INH 2 puff BID-RT JANENE Administration Sertraline HCl 25 mg 07/11/19 21:00 07/14/19 20:15 Zoloft PO 25 mg HS JANENE Administration - Exam General Appearance: awake alert Eye: PERRL, anicteric sclera ENT: no oropharyngeal lesions, moist mucosa Neck: supple, no JVD Heart: RRR, no murmur Respiratory: no wheezes, no rales, rhonchi Gastrointestinal: soft, non-tender, non-distended, normal bowel sounds Extremities: no cyanosis, no edema Neurological: cranial nerve grossly intact, no focal deficits Psychiatric: normal affect, A&O x 3 Hosp A/P (1) Acute and chronic respiratory failure with hypoxia Code(s): J96.21 - ACUTE AND CHRONIC RESPIRATORY FAILURE WITH HYPOXIA Status: Resolved (2) COPD exacerbation Code(s): J44.1 - CHRONIC OBSTRUCTIVE PULMONARY DISEASE W (ACUTE) EXACERBATION Status: Acute (3) Acute metabolic encephalopathy Code(s): G93.41 - METABOLIC ENCEPHALOPATHY Status: Resolved (4) Adult failure to thrive Status: Chronic (5) Depression Code(s): F32.9 - MAJOR DEPRESSIVE DISORDER, SINGLE EPISODE, UNSPECIFIED Status : Chronic Qualifiers: Depression Type: major depressive disorder (6) Moderate protein-calorie malnutrition Code(s): E44.0 - MODERATE PROTEIN-CALORIE MALNUTRITION Status: Chronic (7) Physical deconditioning Code(s): R53.81 - OTHER MALAISE Status: Chronic - Plan hemostable is on steroids, nebs, zoloft PT to mobilize as tolerated medically stable for discharge, prefer placement or per patient and families wishes. echo showed ef of 55% her face mask was changed over by her company prior to her arrival here and says it doesn't fit well and is currently using bipap from hospital at night Has chronic deconditioning and is unable to care for herself at home
[2019-07-16] MEDS: Mometasone 200 MCG HFA INHALER INH SCH ×2 (07:21→19:53)
[2019-07-16] MEDS: Enoxaparin Sodium 40 MG/0.4 ML SYRINGE SC SCH (08:22)
[2019-07-16] MEDS: predniSONE 20 MG TAB PO SCH (08:22)
--- NOTE | 2019-07-16 08:58 | PRG ---
DATE OF SERVICE: 07/16/2019 SUBJECTIVE: The patient is doing well. She is awaiting placement. OBJECTIVE: VITAL SIGNS: On exam, temperature 97.6, pulse 77, respirations 16, and O2 saturation 97% on 2 L. HEENT: Unremarkable. NECK: No adenopathy or JVD. LUNGS: Clear, but distant breath sounds. CARDIAC: S1 and S2. Regular. ABDOMEN: Soft. EXTREMITIES: No edema. ASSESSMENT: 1. Chronic obstructive pulmonary disease with exacerbation. 2. Severe debilitation. PLAN: Awaiting placement. No further recommendations at this time. Job ID: [id number]
--- NOTE | 2019-07-16 12:31 | PDOC.HOSPP ---
- Subjective Encounter Date: 07/16/19 Encounter Time: 08:45 Subjective: breathing better, no new complaints is eating well - Objective Vital Signs & Weight: Vital Signs (12 hours) Temp Pulse Resp BP Pulse Ox 07/16/19 08:00 98.0 F 82 18 124/77 96 07/16/19 07:25 97 07/16/19 07:24 77 16 97 07/16/19 07:21 77 16 97 07/16/19 04:00 97.6 F 77 18 111/57 L 97 07/16/19 00:56 83 16 98 Weight Admit Weight 89 lb 1.6 oz Weight 89 lb 1.6 oz Most Recent Monitor Data Heart Rate from ECG 86 NIBP 119/78 NIBP BP-Mean 91 Respiration from ECG 22 SpO2 100 I&O: 07/15/19 07/16/19 07/17/19 06:59 06:59 06:59 Intake Total 350 840 Balance 350 840 Result Diagrams: 07/11/19 00:46 07/12/19 03:37 Hospitalist ROS - Medication Medications: Active Medications Generic Name Dose Route Start Last Admin Trade Name Freq PRN Reason Stop Dose Admin Albuterol/Ipratropium 3 ml 07/13/19 19:00 07/16/19 07:24 Duoneb NEB 3 ml [id number] JANENE Administration Albuterol/Ipratropium 3 ml 07/13/19 16:40 07/13/19 16:44 Duoneb NEB 3 ml [id number] PRN Administration SOB &/or Wheezing Enoxaparin Sodium 40 mg 07/11/19 09:00 07/16/19 08:22 Lovenox SC 40 mg 0900 JANENE Administration Mometasone Furoate 2 puff 07/11/19 06:30 07/16/19 07:21 Asmanex Hfa 200 Mcg INH 2 puff BID-RT JANENE Administration Prednisone 20 mg 07/16/19 08:00 07/16/19 08:22 Prednisone PO 20 mg QAM-WM JANENE Administration Sertraline HCl 25 mg 07/11/19 21:00 07/15/19 20:56 Zoloft PO 25 mg HS JANENE Administration - Exam General Appearance: awake alert Eye: PERRL, anicteric sclera ENT: no oropharyngeal lesions, moist mucosa Neck: supple, no JVD Heart: RRR, no murmur Respiratory: no wheezes, no rales Gastrointestinal: soft, non-tender, non-distended, normal bowel sounds Extremities: no cyanosis, no edema Neurological: cranial nerve grossly intact, no focal deficits Psychiatric: A&O x 3 Hosp A/P (1) Acute and chronic respiratory failure with hypoxia Code(s): J96.21 - ACUTE AND CHRONIC RESPIRATORY FAILURE WITH HYPOXIA Status: Resolved (2) COPD exacerbation Code(s): J44.1 - CHRONIC OBSTRUCTIVE PULMONARY DISEASE W (ACUTE) EXACERBATION Status: Resolved (3) Acute metabolic encephalopathy Code(s): G93.41 - METABOLIC ENCEPHALOPATHY Status: Resolved (4) Adult failure to thrive Status: Chronic (5) Depression Code(s): F32.9 - MAJOR DEPRESSIVE DISORDER, SINGLE EPISODE, UNSPECIFIED Status : Chronic Qualifiers: Depression Type: major depressive disorder (6) Moderate protein-calorie malnutrition Code(s): E44.0 - MODERATE PROTEIN-CALORIE MALNUTRITION Status: Chronic (7) Physical deconditioning Code(s): R53.81 - OTHER MALAISE Status: Chronic - Plan hemostable is on steroids, nebs, zoloft PT to mobilize as tolerated medically stable for discharge, prefer placement or per patient and families wishes. echo showed ef of 55% her face mask was changed over by her company prior to her arrival here and says it doesn't fit well and is currently using bipap from hospital at night Has chronic deconditioning and is unable to care for herself at home may dc anytime when placement ready or per family's wishes
[2019-07-17] MEDS: Mometasone 200 MCG HFA INHALER INH SCH ×2 (06:37→18:25)
[2019-07-17] MEDS: Enoxaparin Sodium 40 MG/0.4 ML SYRINGE SC SCH (08:51)
[2019-07-17] MEDS: predniSONE 20 MG TAB PO SCH (08:51)
--- NOTE | 2019-07-17 09:49 | PRG ---
DATE OF SERVICE: 07/17/2019 SUBJECTIVE: The patient is doing okay. She is awaiting halfway placement. I did not examine her today, but for all account, she is doing well. IMPRESSION: End-stage chronic obstructive pulmonary disease. PLAN: care home placement. Continue prednisone. Continue breathing treatments. Job ID: [id number]
--- NOTE | 2019-07-17 14:29 | PDOC.HOSPP ---
- Subjective Encounter Date: 07/17/19 Encounter Time: 12:00 Subjective: feels better, no new complaints - Objective Vital Signs & Weight: Vital Signs (12 hours) Temp Pulse Pulse Pulse Pulse Resp BP 07/17/19 13:22 89 22 H 07/17/19 10:13 108 H 118 H 108 H 07/17/19 07:52 98.1 F 88 16 121/71 07/17/19 06:40 81 20 07/17/19 06:37 81 20 Pulse Ox Pulse Ox Pulse Ox Pulse Ox 07/17/19 13:22 92 L 07/17/19 10:13 91 L 87 L 92 L 07/17/19 07:52 95 07/17/19 06:40 97 07/17/19 06:37 98 Weight Admit Weight 89 lb 1.6 oz Weight 89 lb 1.6 oz Most Recent Monitor Data Heart Rate from ECG 86 NIBP 119/78 NIBP BP-Mean 91 Respiration from ECG 22 SpO2 100 I&O: 07/16/19 07/17/19 07/18/19 06:59 06:59 06:59 Intake Total 840 Balance 840 Result Diagrams: 07/11/19 00:46 07/12/19 03:37 Hospitalist ROS - Medication Medications: Active Medications Generic Name Dose Route Start Last Admin Trade Name Freq PRN Reason Stop Dose Admin Albuterol/Ipratropium 3 ml 07/13/19 19:00 07/17/19 13:22 Duoneb NEB 3 ml [id number] JANENE Administration Albuterol/Ipratropium 3 ml 07/13/19 16:40 07/13/19 16:44 Duoneb NEB 3 ml [id number] PRN Administration SOB &/or Wheezing Enoxaparin Sodium 40 mg 07/11/19 09:00 07/17/19 08:51 Lovenox SC 40 mg 0900 JANENE Administration Mometasone Furoate 2 puff 07/11/19 06:30 07/17/19 06:37 Asmanex Hfa 200 Mcg INH 2 puff BID-RT JANENE Administration Prednisone 20 mg 07/16/19 08:00 07/17/19 08:51 Prednisone PO 20 mg QAM-WM JANENE Administration Sertraline HCl 25 mg 07/11/19 21:00 07/16/19 20:19 Zoloft PO 25 mg HS JANENE Administration - Exam General Appearance: awake alert Eye: PERRL, anicteric sclera ENT: no oropharyngeal lesions, moist mucosa Neck: supple, no JVD Heart: RRR, no murmur Respiratory: no wheezes, no rales, rhonchi Gastrointestinal: soft, non-tender, non-distended, normal bowel sounds Extremities: no cyanosis, no edema Neurological: cranial nerve grossly intact, no focal deficits Psychiatric: A&O x 3 Hosp A/P (1) Acute and chronic respiratory failure with hypoxia Code(s): J96.21 - ACUTE AND CHRONIC RESPIRATORY FAILURE WITH HYPOXIA Status: Resolved (2) COPD exacerbation Code(s): J44.1 - CHRONIC OBSTRUCTIVE PULMONARY DISEASE W (ACUTE) EXACERBATION Status: Resolved (3) Acute metabolic encephalopathy Code(s): G93.41 - METABOLIC ENCEPHALOPATHY Status: Resolved (4) Adult failure to thrive Status: Chronic (5) Depression Code(s): F32.9 - MAJOR DEPRESSIVE DISORDER, SINGLE EPISODE, UNSPECIFIED Status : Chronic Qualifiers: Depression Type: major depressive disorder (6) Moderate protein-calorie malnutrition Code(s): E44.0 - MODERATE PROTEIN-CALORIE MALNUTRITION Status: Chronic (7) Physical deconditioning Code(s): R53.81 - OTHER MALAISE Status: Chronic - Plan hemostable is on steroids, nebs, zoloft PT to mobilize as tolerated medically stable for discharge, prefer placement or per patient and families wishes. echo showed ef of 55% her face mask was changed over by her company prior to her arrival here and says it doesn't fit well and is currently using bipap from hospital at night. Her [employer] will change her mask when she is discharged. Has chronic deconditioning and is unable to care for herself at home may dc anytime when placement ready or per family's wishes
[2019-07-18] MEDS: Mometasone 200 MCG HFA INHALER INH SCH ×2 (06:46→18:27)
[2019-07-18] MEDS: predniSONE 20 MG TAB PO SCH (08:20)
[2019-07-18] MEDS: Enoxaparin Sodium 40 MG/0.4 ML SYRINGE SC SCH (08:20)
--- NOTE | 2019-07-18 08:41 | PRG ---
DATE OF SERVICE: 07/18/2019 SUBJECTIVE: The patient is doing well. No complaints. Awaiting [facility] placement. OBJECTIVE: VITAL SIGNS: On exam, temperature 98, pulse 83, respirations 16, O2 saturation is 96%, and blood pressure 125/71. HEENT: Unremarkable. NECK: No JVD. LUNGS: Clear. ASSESSMENT: Chronic obstructive pulmonary disease with chronic hypoxemic and hypercapnic respiratory failure. PLAN: Awaiting placement. No changes in medicine. We will follow as needed. Job ID: [id number]
--- NOTE | 2019-07-18 15:05 | PDOC.HOSPP ---
- Subjective Subjective: Seen and examined. Granddaughter bedside able to aid in history. Patient's shortness of breath has improved sense admission. She tells me that she had a lot of swelling on her legs, this has improved. Overall she states that she is doing much better. Patient is had a good appetite though she is still very skinny and states that when she gets to fall she feels like she cannot breathe. Time was given for questions, all answered in detail. - Objective Vital Signs & Weight: Vital Signs (12 hours) Temp Pulse Resp BP Pulse Ox 07/18/19 12:29 83 22 H 92 L 07/18/19 07:50 98.0 F 83 16 125/71 96 07/18/19 06:47 95 16 Weight Admit Weight 89 lb 1.6 oz Weight 89 lb 1.6 oz Most Recent Monitor Data Heart Rate from ECG 86 NIBP 119/78 NIBP BP-Mean 91 Respiration from ECG 22 SpO2 100 I&O: 07/17/19 07/18/19 07/19/19 06:59 06:59 06:59 Intake Total 480 Balance 480 Result Diagrams: 07/11/19 00:46 07/12/19 03:37 Radiology Reviewed by me: Yes Hospitalist ROS - Review of Systems All other systems reviewed; all pertinent +/- noted in HPI/Subj - Medication Medications: Active Medications Generic Name Dose Route Start Last Admin Trade Name Freq PRN Reason Stop Dose Admin Albuterol/Ipratropium 3 ml 07/13/19 19:00 07/18/19 12:29 Duoneb NEB 3 ml [id number] JANENE Administration Enoxaparin Sodium 40 mg 07/11/19 09:00 07/18/19 08:20 Lovenox SC 40 mg 0900 JANENE Administration Mometasone Furoate 2 puff 07/11/19 06:30 07/18/19 06:46 Asmanex Hfa 200 Mcg INH 2 puff BID-RT JANENE Administration Prednisone 20 mg 07/16/19 08:00 07/18/19 08:20 Prednisone PO 20 mg QAM-WM JANENE Administration Sertraline HCl 25 mg 07/11/19 21:00 07/17/19 20:59 Zoloft PO 25 mg HS JANENE Administration - Exam General Appearance: NAD, awake alert Eye: anicteric sclera ENT: normocephalic atraumatic, moist mucosa Neck: supple, symmetric, no JVD, no lymphadenopathy Heart: no murmur, no gallops, no rubs Respiratory: CTAB, no wheezes, no rales, no ronchi, normal chest expansion Gastrointestinal: soft, non-tender, non-distended, no guarding, no rigidity Extremities: no edema Skin: no lesions, no rashes Neurological: cranial nerve grossly intact, no focal deficits Musculoskeletal: generalized weakness, diffuse muscle atrophy Psychiatric: A&O x 3 Hosp A/P (1) CHF (congestive heart failure) Code(s): I50.9 - HEART FAILURE, UNSPECIFIED Status: Acute (2) Leg edema Code(s): R60.0 - LOCALIZED EDEMA Status: Acute (3) Acute on chronic respiratory failure with hypoxemia Code(s): J96.21 - ACUTE AND CHRONIC RESPIRATORY FAILURE WITH HYPOXIA Status: Acute (4) Degenerative disc disease, thoracic Code(s): M51.34 - OTHER INTERVERTEBRAL DISC DEGENERATION, THORACIC REGION Status: Acute (5) Emphysema of lung Code(s): J43.9 - EMPHYSEMA, UNSPECIFIED Status: Acute (6) Hypokalemia Code(s): E87.6 - HYPOKALEMIA Status: Acute (7) Tachycardia Code(s): R00.0 - TACHYCARDIA, UNSPECIFIED Status: Acute (8) Tremor Code(s): R25.1 - TREMOR, UNSPECIFIED Status: Acute (9) Adult failure to thrive Status: Chronic (10) COPD exacerbation Code(s): J44.1 - CHRONIC OBSTRUCTIVE PULMONARY DISEASE W (ACUTE) EXACERBATION Status: Chronic (11) Depression Code(s): F32.9 - MAJOR DEPRESSIVE DISORDER, SINGLE EPISODE, UNSPECIFIED Status : Chronic Qualifiers: Depression Type: major depressive disorder (12) Moderate protein-calorie malnutrition Code(s): E44.0 - MODERATE PROTEIN-CALORIE MALNUTRITION Status: Chronic (13) Physical deconditioning Code(s): R53.81 - OTHER MALAISE Status: Chronic (14) Pulmonary cachexia due to COPD Code(s): J44.9 - CHRONIC OBSTRUCTIVE PULMONARY DISEASE, UNSPECIFIED; R64 - CACHEXIA Status: Chronic (15) Acute and chronic respiratory failure with hypoxia Code(s): J96.21 - ACUTE AND CHRONIC RESPIRATORY FAILURE WITH HYPOXIA Status: Resolved (16) COPD exacerbation Code(s): J44.1 - CHRONIC OBSTRUCTIVE PULMONARY DISEASE W (ACUTE) EXACERBATION Status: Resolved - Plan Plan: medical unit pulmonology consultation, recommendations appreciated discharge planning ongoing patient will require subacute placement, severe de conditioning, inability to care for self supplemental oxygen to maintain O2 saturation greater than 80% steroids fluid restrictions for congestive heart failure monitor for volume overload to avoid future hospitalizations continue other home medications as able blood pressure control bladder control G.I. prophylaxis DVT prophylaxis
[2019-07-18] MEDS: Famotidine 20 MG TAB PO SCH (20:25)
[2019-07-19] MEDS: Mometasone 200 MCG HFA INHALER INH SCH ×2 (07:40→18:25)
[2019-07-19] MEDS: Famotidine 20 MG TAB PO SCH ×2 (08:07→20:22)
[2019-07-19] MEDS: Enoxaparin Sodium 40 MG/0.4 ML SYRINGE SC SCH (08:08)
[2019-07-19] MEDS: predniSONE 20 MG TAB PO SCH (08:08)
[2019-07-19] MEDS ORDERED: methylPREDNISolone Sod Succ 40 MG VIAL IVP SCH (14:00)
--- NOTE | 2019-07-19 15:05 | PDOC.HOSPP ---
- Subjective Subjective: Seen and examined. Clinically worse today. Patient breathing greater than 20 breast per minute while I'm in the room. Her heart is racing. She is feeling short of breath and using accessory muscles and straining to breathe. She states that she has been behind on her breathing treatments this morning and felt short of breath since she woke up at before 6 AM. I will add an additional dose of IV steroids. With the patient's current condition I think that if she was sent to rehabilitation facility she would be sent back a matter of hours secondary to her vital signs alone. Patient has her trilogy BiPAP in the room and I encouraged her to wear this if she is feeling short of breath. She states that she spent most of yesterday on her trilogy BiPAP. - Objective Vital Signs & Weight: Vital Signs (12 hours) Temp Pulse Pulse Pulse Resp BP Pulse Ox 07/19/19 12:41 99 24 H 98 07/19/19 09:58 92 120 H 07/19/19 07:55 97.7 F 84 16 138/54 L 96 07/19/19 07:42 90 18 96 07/19/19 07:40 90 18 96 Pulse Ox Pulse Ox Pulse Ox 07/19/19 12:41 07/19/19 09:58 100 79 L 90 L 07/19/19 07:55 07/19/19 07:42 07/19/19 07:40 Weight Admit Weight 89 lb 1.6 oz Weight 89 lb 1.6 oz Most Recent Monitor Data Heart Rate from ECG 86 NIBP 119/78 NIBP BP-Mean 91 Respiration from ECG 22 SpO2 100 I&O: 07/18/19 07/19/19 07/20/19 06:59 06:59 06:59 Intake Total 480 560 Balance 480 560 Result Diagrams: 07/11/19 00:46 07/12/19 03:37 Radiology Reviewed by me: Yes Hospitalist ROS - Review of Systems All other systems reviewed; all pertinent +/- noted in HPI/Subj - Medication Medications: Active Medications Generic Name Dose Route Start Last Admin Trade Name Freq PRN Reason Stop Dose Admin Albuterol/Ipratropium 3 ml 07/13/19 19:00 07/19/19 12:41 Duoneb NEB 3 ml [id number] JANENE Administration Enoxaparin Sodium 40 mg 07/11/19 09:00 07/19/19 08:08 Lovenox SC 40 mg 0900 JANENE Administration Famotidine 20 mg 07/18/19 21:00 07/19/19 08:07 Pepcid PO 20 mg BID JANENE Administration Mometasone Furoate 2 puff 07/11/19 06:30 07/19/19 07:40 Asmanex Hfa 200 Mcg INH 2 puff BID-RT JANENE Administration Sertraline HCl 25 mg 07/11/19 21:00 07/18/19 20:25 Zoloft PO 25 mg HS JANENE Administration - Exam General Appearance: ill appearing Eye: PERRL ENT: normocephalic atraumatic, moist mucosa Neck: supple, symmetric, no lymphadenopathy Heart: no murmur, no gallops, no rubs Respiratory: no rales, normal chest expansion, tachypneic, wheezes Respiratory - other findings: Struggling to breath, using accessory muscles of respiration Gastrointestinal: soft, non-tender, non-distended, no guarding, no rigidity Extremities: no edema Skin: no rashes Neurological: cranial nerve grossly intact, no focal deficits Musculoskeletal: generalized weakness Psychiatric: A&O x 3 Hosp A/P (1) CHF (congestive heart failure) Code(s): I50.9 - HEART FAILURE, UNSPECIFIED Status: Acute (2) Leg edema Code(s): R60.0 - LOCALIZED EDEMA Status: Acute (3) Acute on chronic respiratory failure with hypoxemia Code(s): J96.21 - ACUTE AND CHRONIC RESPIRATORY FAILURE WITH HYPOXIA Status: Acute (4) Degenerative disc disease, thoracic Code(s): M51.34 - OTHER INTERVERTEBRAL DISC DEGENERATION, THORACIC REGION Status: Acute (5) Emphysema of lung Code(s): J43.9 - EMPHYSEMA, UNSPECIFIED Status: Acute (6) Hypokalemia Code(s): E87.6 - HYPOKALEMIA Status: Acute (7) Tachycardia Code(s): R00.0 - TACHYCARDIA, UNSPECIFIED Status: Acute (8) Tremor Code(s): R25.1 - TREMOR, UNSPECIFIED Status: Acute (9) Adult failure to thrive Status: Chronic (10) COPD exacerbation Code(s): J44.1 - CHRONIC OBSTRUCTIVE PULMONARY DISEASE W (ACUTE) EXACERBATION Status: Chronic (11) Depression Code(s): F32.9 - MAJOR DEPRESSIVE DISORDER, SINGLE EPISODE, UNSPECIFIED Status : Chronic Qualifiers: Depression Type: major depressive disorder (12) Moderate protein-calorie malnutrition Code(s): E44.0 - MODERATE PROTEIN-CALORIE MALNUTRITION Status: Chronic (13) Physical deconditioning Code(s): R53.81 - OTHER MALAISE Status: Chronic (14) Pulmonary cachexia due to COPD Code(s): J44.9 - CHRONIC OBSTRUCTIVE PULMONARY DISEASE, UNSPECIFIED; R64 - CACHEXIA Status: Chronic (15) Acute and chronic respiratory failure with hypoxia Code(s): J96.21 - ACUTE AND CHRONIC RESPIRATORY FAILURE WITH HYPOXIA Status: Resolved (16) COPD exacerbation Code(s): J44.1 - CHRONIC OBSTRUCTIVE PULMONARY DISEASE W (ACUTE) EXACERBATION Status: Resolved - Plan Plan: medical unit pulmonology consultation, recommendations appreciated discharge planning ongoing patient will require subacute placement, severe de conditioning, inability to care for self supplemental oxygen to maintain O2 saturation greater than 80% Solumedrol x1 now increase oral steroids CXR in the AM fluid restrictions for congestive heart failure monitor for volume overload to avoid future hospitalizations continue other home medications as able blood pressure control bladder control G.I. prophylaxis DVT prophylaxis Disposition: SNF on Monday. [employer] prognosis is guarded with end stage COPD. Use Trilogy Bipap when short of breath. Needs more regular breathing treatments - though she doesn't like to use them [id number]
[2019-07-20] MEDS: Mometasone 200 MCG HFA INHALER INH SCH ×2 (05:44→18:47)
[2019-07-20] MEDS: Famotidine 20 MG TAB PO SCH ×2 (08:24→21:13)
[2019-07-20] MEDS: predniSONE 20 MG TAB PO SCH (08:24)
[2019-07-20] MEDS: Enoxaparin Sodium 40 MG/0.4 ML SYRINGE SC SCH (08:24)
--- NOTE | 2019-07-20 09:21 | RAD ---
CHEST 1 VIEW: HISTORY: Shortness of breath. COMPARISON: 07/11/2019 exam. FINDINGS: Heart size is within normal limits. There is atherosclerotic change of the aorta. Chronic lung cruz ges are seen without focal infiltrates. IMPRESSION: Chronic lung change. POS: [facility]
--- NOTE | 2019-07-20 14:34 | PDOC.HOSPP ---
- Subjective Subjective: Seen and examined. Patient appears much more comfortable today. She is breathing more easily and not using accessory muscles of respiration so desperately as you she was yesterday. She does have wheezing on the right. Additional doses of steroids have helped calm her lungs down. Chest x-ray reviewed. Will plan for SNF on monday. - Objective Vital Signs & Weight: Vital Signs (12 hours) Temp Pulse Resp BP Pulse Ox 07/20/19 12:47 91 20 97 07/20/19 08:13 97.9 F 82 20 119/75 97 07/20/19 08:00 97 07/20/19 05:43 96 24 H 97 Weight Admit Weight 89 lb 1.6 oz Weight 89 lb 1.6 oz Most Recent Monitor Data Heart Rate from ECG 86 NIBP 119/78 NIBP BP-Mean 91 Respiration from ECG 22 SpO2 100 I&O: 07/19/19 07/20/19 07/21/19 06:59 06:59 06:59 Intake Total 560 360 240 Balance 560 360 240 Result Diagrams: 07/11/19 00:46 07/12/19 03:37 Radiology Reviewed by me: Yes Hospitalist ROS - Review of Systems All other systems reviewed; all pertinent +/- noted in HPI/Subj - Medication Medications: Active Medications Generic Name Dose Route Start Last Admin Trade Name Freq PRN Reason Stop Dose Admin Albuterol/Ipratropium 3 ml 07/13/19 19:00 07/20/19 12:47 Duoneb NEB 3 ml [id number] JANENE Administration Enoxaparin Sodium 40 mg 07/11/19 09:00 07/20/19 08:24 Lovenox SC 40 mg 0900 JANENE Administration Famotidine 20 mg 07/18/19 21:00 07/20/19 08:24 Pepcid PO 20 mg BID JANENE Administration Mometasone Furoate 2 puff 07/11/19 06:30 07/20/19 05:44 Asmanex Hfa 200 Mcg INH 2 puff BID-RT JANENE Administration Prednisone 40 mg 07/20/19 08:00 07/20/19 08:24 Prednisone PO 40 mg QAM-WM JANENE Administration Sertraline HCl 25 mg 07/11/19 21:00 07/19/19 20:22 Zoloft PO 25 mg HS JANENE Administration - Exam General Appearance: NAD, awake alert Eye: PERRL ENT: normocephalic atraumatic, moist mucosa Neck: supple, symmetric, no lymphadenopathy Heart: no murmur, no gallops, no rubs Respiratory: no rales, normal chest expansion, no tachypnea, rhonchi (few), wheezes (moderate) Gastrointestinal: soft, non-tender, no guarding, no rigidity Extremities: no edema Skin: no lesions, no rashes Neurological: cranial nerve grossly intact, no focal deficits Musculoskeletal: generalized weakness Psychiatric: A&O x 3 Hosp A/P (1) CHF (congestive heart failure) Code(s): I50.9 - HEART FAILURE, UNSPECIFIED Status: Acute (2) Leg edema Code(s): R60.0 - LOCALIZED EDEMA Status: Acute (3) Acute on chronic respiratory failure with hypoxemia Code(s): J96.21 - ACUTE AND CHRONIC RESPIRATORY FAILURE WITH HYPOXIA Status: Acute (4) Degenerative disc disease, thoracic Code(s): M51.34 - OTHER INTERVERTEBRAL DISC DEGENERATION, THORACIC REGION Status: Acute (5) Emphysema of lung Code(s): J43.9 - EMPHYSEMA, UNSPECIFIED Status: Acute (6) Hypokalemia Code(s): E87.6 - HYPOKALEMIA Status: Acute (7) Tachycardia Code(s): R00.0 - TACHYCARDIA, UNSPECIFIED Status: Acute (8) Tremor Code(s): R25.1 - TREMOR, UNSPECIFIED Status: Acute (9) Adult failure to thrive Status: Chronic (10) COPD exacerbation Code(s): J44.1 - CHRONIC OBSTRUCTIVE PULMONARY DISEASE W (ACUTE) EXACERBATION Status: Chronic (11) Depression Code(s): F32.9 - MAJOR DEPRESSIVE DISORDER, SINGLE EPISODE, UNSPECIFIED Status : Chronic Qualifiers: Depression Type: major depressive disorder (12) Moderate protein-calorie malnutrition Code(s): E44.0 - MODERATE PROTEIN-CALORIE MALNUTRITION Status: Chronic (13) Physical deconditioning Code(s): R53.81 - OTHER MALAISE Status: Chronic (14) Pulmonary cachexia due to COPD Code(s): J44.9 - CHRONIC OBSTRUCTIVE PULMONARY DISEASE, UNSPECIFIED; R64 - CACHEXIA Status: Chronic (15) Acute and chronic respiratory failure with hypoxia Code(s): J96.21 - ACUTE AND CHRONIC RESPIRATORY FAILURE WITH HYPOXIA Status: Resolved (16) COPD exacerbation Code(s): J44.1 - CHRONIC OBSTRUCTIVE PULMONARY DISEASE W (ACUTE) EXACERBATION Status: Resolved - Plan Plan: medical unit pulmonology consultation, recommendations appreciated discharge planning ongoing - Plan for D/c to SNF on Monday, as they do not accept on the weekend patient will require subacute placement, severe de conditioning, inability to care for self supplemental oxygen to maintain O2 saturation greater than 88% Continue oral steroids CXR reviewed fluid restrictions for congestive heart failure monitor for volume overload to avoid future hospitalizations continue other home medications as able blood pressure control bladder control G.I. prophylaxis DVT prophylaxis Disposition: SNF on Monday. snf prognosis is guarded with end stage COPD. Use Trilogy Bipap when short of breath. Needs more regular breathing treatments - though she doesn't like to use them [id number]
[2019-07-21] MEDS: Mometasone 200 MCG HFA INHALER INH SCH ×2 (07:00→18:37)
[2019-07-21] MEDS: Famotidine 20 MG TAB PO SCH ×2 (09:04→19:57)
[2019-07-21] MEDS: Enoxaparin Sodium 40 MG/0.4 ML SYRINGE SC SCH (09:04)
[2019-07-21] MEDS: predniSONE 20 MG TAB PO SCH (09:04)
[2019-07-21] MEDS ORDERED: ALPRAZolam 0.25 MG TAB PO PRN (10:11)
[2019-07-21] MEDS ORDERED: methylPREDNISolone Sod Succ 40 MG VIAL IVP SCH (10:15)
--- NOTE | 2019-07-21 12:44 | PDOC.HOSPP ---
- Subjective Subjective: Seen and examined. Still with some wheezing on the right side greater than left. She has been using her breathing treatments [id number]. Patient is anxious, I offered low dose Xanax, patient states that she will think about it. Discussed possibly discharge to custodial facility tomorrow in the a.m. if her breathing status will tolerate. Patient has been approved on Monday for discharge to custodial facility, however they do not accept on the weekend. - Objective Vital Signs & Weight: Vital Signs (12 hours) Temp Pulse Resp BP Pulse Ox 07/21/19 12:31 91 18 97 07/21/19 08:00 98 07/21/19 07:43 97.9 F 89 24 H 111/63 98 07/21/19 06:58 86 18 99 Weight Admit Weight 89 lb 1.6 oz Weight 89 lb 1.6 oz Most Recent Monitor Data Heart Rate from ECG 86 NIBP 119/78 NIBP BP-Mean 91 Respiration from ECG 22 SpO2 100 I&O: 07/20/19 07/21/19 07/22/19 06:59 06:59 06:59 Intake Total 360 1200 Balance 360 1200 Result Diagrams: 07/11/19 00:46 07/12/19 03:37 Radiology Reviewed by me: Yes Hospitalist ROS - Review of Systems All other systems reviewed; all pertinent +/- noted in HPI/Subj - Medication Medications: Active Medications Generic Name Dose Route Start Last Admin Trade Name Freq PRN Reason Stop Dose Admin Albuterol/Ipratropium 3 ml 07/13/19 19:00 07/21/19 12:31 Duoneb NEB 3 ml [id number] JANENE Administration Enoxaparin Sodium 40 mg 07/11/19 09:00 07/21/19 09:04 Lovenox SC 40 mg 0900 JANENE Administration Famotidine 20 mg 07/18/19 21:00 07/21/19 09:04 Pepcid PO 20 mg BID JANENE Administration Mometasone Furoate 2 puff 07/11/19 06:30 07/21/19 07:00 Asmanex Hfa 200 Mcg INH 2 puff BID-RT JANENE Administration Prednisone 40 mg 07/20/19 08:00 07/21/19 09:04 Prednisone PO 40 mg QAM-WM JANENE Administration Sertraline HCl 25 mg 07/11/19 21:00 07/20/19 21:13 Zoloft PO 25 mg HS JANENE Administration - Exam General Appearance: ill appearing Eye: PERRL ENT: normocephalic atraumatic, moist mucosa Neck: supple, symmetric, no JVD Heart: no murmur, no gallops, no rubs Respiratory: no rales, rhonchi, tachypneic, wheezes Respiratory - other findings: Poor gas exchange/ airmovement with end stage COPD Gastrointestinal: soft, non-tender, no guarding, no rigidity Extremities: no edema Skin: no rashes Neurological: cranial nerve grossly intact, no focal deficits Musculoskeletal: generalized weakness Psychiatric: A&O x 3 Psychiatric - other findings: anxious Hosp A/P (1) CHF (congestive heart failure) Code(s): I50.9 - HEART FAILURE, UNSPECIFIED Status: Acute (2) Leg edema Code(s): R60.0 - LOCALIZED EDEMA Status: Acute (3) Acute on chronic respiratory failure with hypoxemia Code(s): J96.21 - ACUTE AND CHRONIC RESPIRATORY FAILURE WITH HYPOXIA Status: Acute (4) Degenerative disc disease, thoracic Code(s): M51.34 - OTHER INTERVERTEBRAL DISC DEGENERATION, THORACIC REGION Status: Acute (5) Emphysema of lung Code(s): J43.9 - EMPHYSEMA, UNSPECIFIED Status: Acute (6) Hypokalemia Code(s): E87.6 - HYPOKALEMIA Status: Acute (7) Tachycardia Code(s): R00.0 - TACHYCARDIA, UNSPECIFIED Status: Acute (8) Tremor Code(s): R25.1 - TREMOR, UNSPECIFIED Status: Acute (9) Adult failure to thrive Status: Chronic (10) COPD exacerbation Code(s): J44.1 - CHRONIC OBSTRUCTIVE PULMONARY DISEASE W (ACUTE) EXACERBATION Status: Chronic (11) Depression Code(s): F32.9 - MAJOR DEPRESSIVE DISORDER, SINGLE EPISODE, UNSPECIFIED Status : Chronic Qualifiers: Depression Type: major depressive disorder (12) Moderate protein-calorie malnutrition Code(s): E44.0 - MODERATE PROTEIN-CALORIE MALNUTRITION Status: Chronic (13) Physical deconditioning Code(s): R53.81 - OTHER MALAISE Status: Chronic (14) Pulmonary cachexia due to COPD Code(s): J44.9 - CHRONIC OBSTRUCTIVE PULMONARY DISEASE, UNSPECIFIED; R64 - CACHEXIA Status: Chronic (15) Acute and chronic respiratory failure with hypoxia Code(s): J96.21 - ACUTE AND CHRONIC RESPIRATORY FAILURE WITH HYPOXIA Status: Resolved (16) COPD exacerbation Code(s): J44.1 - CHRONIC OBSTRUCTIVE PULMONARY DISEASE W (ACUTE) EXACERBATION Status: Resolved - Plan Plan: medical unit pulmonology consultation, recommendations appreciated discharge planning ongoing - Plan for D/c to SNF on Monday, as they do not accept on the weekend patient will require subacute placement, severe de conditioning, inability to care for self supplemental oxygen to maintain O2 saturation greater than 88% Continue oral steroids, additional 1 time dose Solumedrol CXR reviewed fluid restrictions for congestive heart failure Xanax for anxiety, gets very anxious with breathing treatments monitor for volume overload to avoid future hospitalizations continue other home medications as able blood pressure control bladder control G.I. prophylaxis DVT prophylaxis Disposition: SNF on Monday. [employer] prognosis is guarded with end stage COPD. Use Trilogy Bipap when short of breath. Needs more regular breathing treatments - though she doesn't like to use them [id number]
[2019-07-22] MEDS: Mometasone 200 MCG HFA INHALER INH SCH (06:38)
[2019-07-22] MEDS: predniSONE 20 MG TAB PO SCH (09:00)
[2019-07-22] MEDS: Enoxaparin Sodium 40 MG/0.4 ML SYRINGE SC SCH (09:00)
[2019-07-22] MEDS: Famotidine 20 MG TAB PO SCH (09:00)
--- NOTE | 2019-07-22 10:16 | PDOC.HOSPP ---
- Subjective Encounter Date: 07/22/19 Encounter Time: 11:40 Subjective: Patient on her home Bipap this AM, states it helps her more than the duo nebs and doesn't maker her as anxious. No changes. - Objective Vital Signs & Weight: Vital Signs (12 hours) Temp Pulse Resp BP Pulse Ox 07/22/19 07:35 97.8 F 85 17 119/67 96 07/22/19 06:35 68 18 99 07/21/19 23:55 85 16 100 Weight Admit Weight 89 lb 1.6 oz Weight 89 lb 1.6 oz Most Recent Monitor Data Heart Rate from ECG 86 NIBP 119/78 NIBP BP-Mean 91 Respiration from ECG 22 SpO2 100 I&O: 07/21/19 07/22/19 07/23/19 06:59 06:59 06:59 Intake Total 1200 1120 Balance 1200 1120 Result Diagrams: 07/11/19 00:46 07/12/19 03:37 Hospitalist ROS - Review of Systems Constitutional: denies: fever, chills Respiratory: reports: shortness of breath. denies: cough Cardiovascular: denies: chest pain, palpitations Gastrointestinal: denies: nausea, vomiting, abdominal pain Genitourinary: denies: dysuria, hematuria - Medication Medications: Active Medications Generic Name Dose Route Start Last Admin Trade Name Freq PRN Reason Stop Dose Admin Albuterol/Ipratropium 3 ml 07/13/19 19:00 07/22/19 06:35 Duoneb NEB 3 ml [id number] JANENE Administration Enoxaparin Sodium 40 mg 07/11/19 09:00 07/22/19 09:00 Lovenox SC 40 mg 0900 JANENE Administration Famotidine 20 mg 07/18/19 21:00 07/22/19 09:00 Pepcid PO 20 mg BID JANENE Administration Mometasone Furoate 2 puff 07/11/19 06:30 07/22/19 06:38 Asmanex Hfa 200 Mcg INH 2 puff BID-RT JANENE Administration Prednisone 40 mg 07/20/19 08:00 07/22/19 09:00 Prednisone PO 40 mg QAM-WM JANENE Administration Sertraline HCl 25 mg 07/11/19 21:00 07/21/19 19:57 Zoloft PO 25 mg HS JANENE Administration - Exam General Appearance: NAD, awake alert ENT: moist mucosa Heart: RRR, no murmur, no gallops, no rubs Respiratory - other findings: poor airmovement bilaterally, no increased WOB on bipap, no wheezing Gastrointestinal: soft, non-tender, non-distended, normal bowel sounds Extremities: no edema Psychiatric: normal behavior, A&O x 3 Psychiatric - other findings: anxious affect Hosp A/P (1) Acute on chronic respiratory failure with hypoxia and hypercapnia Code(s): J96.21 - ACUTE AND CHRONIC RESPIRATORY FAILURE WITH HYPOXIA; J96.22 - ACUTE AND CHRONIC RESPIRATORY FAILURE WITH HYPERCAPNIA Status: Acute (2) COPD exacerbation Code(s): J44.1 - CHRONIC OBSTRUCTIVE PULMONARY DISEASE W (ACUTE) EXACERBATION Status: Acute (3) Emphysema of lung Code(s): J43.9 - EMPHYSEMA, UNSPECIFIED Status: Chronic (4) CHF (congestive heart failure) Code(s): I50.9 - HEART FAILURE, UNSPECIFIED Status: Acute Qualifiers: Heart failure type: diastolic Heart failure chronicity: acute on chronic Qualified Code(s): I50.33 - Acute on chronic diastolic (congestive) heart failure (5) Depression Code(s): F32.9 - MAJOR DEPRESSIVE DISORDER, SINGLE EPISODE, UNSPECIFIED Status : Chronic Qualifiers: Depression Type: major depressive disorder (6) Moderate protein-calorie malnutrition Code(s): E44.0 - MODERATE PROTEIN-CALORIE MALNUTRITION Status: Chronic (7) Pulmonary cachexia due to COPD Code(s): J44.9 - CHRONIC OBSTRUCTIVE PULMONARY DISEASE, UNSPECIFIED; R64 - CACHEXIA Status: Chronic (8) Anxiety Code(s): F41.9 - ANXIETY DISORDER, UNSPECIFIED Status: Chronic - Plan SNF placement today, accepted to [facility] down to home 10mg prednisone daily over 2-3 weeks
[2019-07-22 14:39] VITALS: BP 124/73; TEMP 98.1
--- NOTE | 2019-07-22 15:46 | DIS ---
DATE OF ADMISSION: 07/11/2019 DATE OF DISCHARGE: 07/22/2019 PRIMARY CARE PHYSICIAN: Talita Waterman MD REASON FOR ADMISSION: COPD exacerbation and volume overload. DISCHARGE DIAGNOSES: 1. Acute on chronic respiratory failure with hypoxia and hypercapnia. 2. Chronic obstructive pulmonary disease exacerbation. 3. Acute on chronic diastolic congestive heart failure. 4. Emphysema of the lung. 5. Depression. 6. Anxiety. 7. Moderate protein-calorie malnutrition. 8. Pulmonary cachexia due to chronic obstructive pulmonary disease. PROCEDURES: Echocardiogram showing ejection fraction of 55% to 60% with the E/A flow reversal suggestive of diastolic dysfunction. CONSULTATIONS: Pulmonology, Dr. Bravo. SUMMARY OF HOSPITAL COURSE: This is an 78-year-old female with history of stage IV COPD, on home oxygen, also with a home BiPAP machine. She had a recent COPD exacerbation, was just discharged last week, had been very weak at home, being basically full care. She presented with increased shortness of breath , came to the emergency room, was found to be saturating in the 80s, was put on BiPAP empirically. She was admitted to the hospital, given steroids and breathing treatments as well as empiric antibiotics. Pulmonology was consulted. She was titrated down to just steroids and inhalers. The patient is slowly improved during her hospital course. She gets very anxious with albuterol from the breathing treatments, but has been taking them regularly, and is using her home BiPAP machine with good results. She is still quite weak and so she is being sent to a senior care facility. She cannot care for herself at home at this time. DISCHARGE MANAGEMENT: Discharged to [facility]. ACTIVITY: As tolerated. DIET: Healthy-heart diet. THERAPY: Occupational and physical therapy. EQUIPMENT AND SUPPLIES: Oxygen nebulizer treatments and her home BiPAP machine as needed. FOLLOWUP: Follow up with Dr. Waterman in [address] Bravo in 14 days. DISCHARGE MEDICATIONS: 1. Prednisone 40 mg daily, this is to be weaned down to her home dose of 10 mg daily over the next 2 to 3 weeks. 2. Symbicort 160/4.5 two puffs inhaled twice a day. 3. Famotidine 20 mg twice a day. 4. DuoNeb q.6 hours. 5. Albuterol nebulizer every 4 hours as needed for coughing, wheezing, shortness of breath. 6. Sertraline 25 mg at night. 7. Incruse Ellipta one inhalation daily. TIME SPENT: Arranging the details of this discharge took 32 minutes. Job ID: [id number]
--- NOTE | 2019-07-25 15:10 | PRG ---
DATE OF SERVICE: 07/14/2019 SUBJECTIVE: Ms. Paredes did well overnight. She preferred wearing the noninvasive ventilator what we had set up that the hospital supplies. She says she is feeling better. OBJECTIVE: VITAL SIGNS: Stable overnight. LUNGS: Remarkable for distant breath sounds. She is able to talk in sentences. HEART: Regular rhythm. ABDOMEN: Soft. EXTREMITIES: Without edema. IMPRESSION: 1. Chronic obstructive pulmonary disease exacerbation with near end-stage chronic obstructive pulmonary disease. 2. Status post set up of noninvasive trilogy home ventilator. This can be adjusted if she is unable to become more compliant with her home nocturnal ventilator. We will continue to follow. Dr. Bravo will return in the morning to follow. Job ID: [id number]
== END 2019-07-22 14:15 | DRG 189 ==
LOC: ERS 00:37 → IMCU/EMU 02:04 → T4-B 07-12 19:57
PROVIDERS: ADMIT Internal Medicine; ATTEND Internal Medicine
DX: J96.21 Acute and chronic respiratory failure with hypoxia (principal); G93.41 Metabolic encephalopathy; I50.33 Acute on chronic diastolic (congestive) heart failure; I21.A1 Myocardial infarction type 2; E44.0 Moderate protein-calorie malnutrition; R64 Cachexia; Z66 Do not resuscitate; Z68.1 Body mass index [BMI] 19.9 or less, adult; J96.22 Acute and chronic respiratory failure with hypercapnia; J43.9 Emphysema, unspecified; F32.9 Major depressive disorder, single episode, unspecified; F41.9 Anxiety disorder, unspecified; E78.5 Hyperlipidemia, unspecified; K21.9 Gastro-esophageal reflux disease without esophagitis; D72.829 Elevated white blood cell count, unspecified; I25.10 Atherosclerotic heart disease of native coronary artery without angina pectoris; M51.34 Other intervertebral disc degeneration, thoracic region; Z99.89 Dependence on other enabling machines and devices; Z99.81 Dependence on supplemental oxygen; Z90.710 Acquired absence of both cervix and uterus; Z87.891 Personal history of nicotine dependence; Z79.51 Long term (current) use of inhaled steroids; Z79.52 Long term (current) use of systemic steroids; Z79.01 Long term (current) use of anticoagulants; Z79.899 Other long term (current) drug therapy; Z88.1 Allergy status to other antibiotic agents; E87.6 Hypokalemia; R25.1 Tremor, unspecified
CPT/HCPCS: 36415; 71045; 80048; 80053; 82550; 82553; 82805; 83605; 83735; 83880; 84484; 85025; 85379; 93005; 93306; 94640; 94660; 99213; G0463; J0456; J1650; J1815; J1940; J2920; J2930; J7050; J7512; J7611; J7620

== ENCOUNTER 2019-07-29 14:30 | Inpatient (IN) | payer MEDICARE, OTHER ==
[~2019-07-29 14:30] MED LIST changes: -Iopamidol 370 76% 100 ML VIAL ONE; +Iopamidol-370 76% 500 ML 1 ML ONE
[2019-07-29 15:17] LABS: #Lymphocytes 0.4 thou/uL (1.20-3.40); #Monocytes 0.4 thou/uL (0.11-0.59); %Eosinophils 0.1 % (0.0-10.0); %Lymphocytes 2.5 % (21.0-51.0); %Monocytes 2.4 % (0.0-10.0); Hemoglobin 13.4 g/dL (12.0-16.0); Mean Corpuscular HGB CONC 32.3 g/dL (32.0-36.0); Mean Corpuscular Hemoglobin 28.3 pg (27.0-31.0); Mean Corpuscular Volume 87.8 fL (78.0-98.0); Mean Platelet Volume 9.3 fL (7.4-10.4); Platelet Count 214 thou/uL (130-400); RBC Distribution Width 13.6 % (11.5-14.5); Red Blood Cell (RBC) Count 4.73 mill/uL (4.20-5.40); White Blood Cell (WBC) Count 14.7 thou/uL (4.8-10.8)
[2019-07-29] MEDS ORDERED: Magnesium 2 GM/50 ML BAG (IN WATER) ONE (15:20)
[2019-07-29] MEDS ORDERED: Albuterol Sulfate 2.5 mg/3 ml Neb ONE (15:20)
--- NOTE | 2019-07-29 15:24 | RAD ---
AP CHEST: Date: 07/29/2019 HISTORY: Shortness of breath. COMPARISON: 07/20/2019. FINDINGS: Lungs appear well aerated with mild hyperexpansion. There are chronic lung parenchymal changes which appear stable. No evidence of infiltrate or vascular congestion. Heart size within normal range. IMPRESSION: No acute findings or significant interval change. POS: [facility]
[2019-07-29] MEDS ORDERED: Albuterol 200 PUFF (6.7GM INHALER) ONE (15:29)
[2019-07-29 15:40] LABS: ALT (SGPT) 41 U/L (8-55); AST (SGOT) 40 U/L (5-34); Albumin 4.2 g/dL (3.4-4.8); Alkaline Phosphatase 80 U/L (40-110); Anion Gap 11 mmol/L (10-20); BUN (Urea Nitrogen) 21 mg/dL (9.8-20.1); Bilirubin, Total 0.5 mg/dL (0.2-1.2); Calc. Creatinine Clearance 0 mL/min (70-130); Carbon Dioxide 33 mmol/L (23-31); Chloride 99 mmol/L (98-107); Estimated GFR-MDRD Greater than 90; Globulin 1.9 g/dL (2.4-3.5); Glucose 218 mg/dL (83-110); Potassium 4.5 mmol/L (3.5-5.1); Protein, Total 6.1 g/dL (6.0-8.3); Sodium 138 mmol/L (136-145)
[2019-07-29] MEDS ORDERED: Aztreonam 2 GM in Sodium Chloride 0.9% 100 ML IVPB ONE (16:00)
[2019-07-29 16:18] LABS: CKMB 7.3 ng/mL (0-6.6)
[2019-07-29] MEDS ORDERED: Cefepime 2 GM VIAL ONE (16:25)
[2019-07-29] MEDS ORDERED: Vancomycin 1 GM/200 ML BAG ONE (17:53)
[2019-07-29] MEDS ORDERED: Aspirin Chewable 81 MG TAB ONE (17:53)
--- NOTE | 2019-07-29 18:52 | PDOC.HHP ---
Hospitalist HPI - History of Present Illness shortness of breath History of Present Illness: This is an 78 year old female with past medical history of advanced COPD who was sent from her halfway due to shortness of breath. The patient was discharged from the hospital on 07/21. She was treated with antibiotics during her last admission and discharged with steroid taper and home BIPAP. She was sent to [facility] and had some pulmonary rehab there, however she says even the smallest movement would make her short of breath so she came back to the ER. She was using 2L of oxygen there. She denies fevers, chills, cough, runny nose, sore throat, myalgias. She denies being in contact with other patients at the facility. Denies exposure to anyone with the flu. The patient states she was still taking the prednisone taper, unsure of the dose she took this morning. She felt that she was getting her breathing treatments sporadically there and missed one night of symbicort. She denies chest pain. She says she had a stress test two years ago that was normal. ED Course: In the ER, the patient was saturating 98% on 6L nasal cannula, however due to persistent complaints by the patient that she couldn't breathe and excessive work of breathing per nursing staff, she was placed on a non-rebreather. Chest X ray was unremarkable. WBC 14.7, patient was given IV vancomycin and aztreonam. Troponin was elevated at 0.5, CKMB 7.3. She was also given aspirin and therapeutic lovenox. Hospitalist ROS - Review of Systems Constitutional: denies: fever, chills Respiratory: reports: shortness of breath. denies: cough, dry Cardiovascular: denies: chest pain, palpitations, orthopnea Gastrointestinal: denies: nausea, vomiting, abdominal pain, diarrhea Genitourinary: denies: dysuria, frequency, incontinence - Medication Medications: Prednisone taper Symbicort 160/4.5 two puffs inhaled twice a day Famotidin 20 mg bid Duoneb q6 hours Albuterol nebulizer q4 hours as needed Sertralin 25 mg qhs Incruse ellipta once inhalation daily Hospitalist History - Past Medical History Pulmonary: reports: COPD Other Medical History: COPD Depression GERD - Past Surgical History Past Surgical History: reports: , Hysterectomy - Family History Other Family History: No family history of lung problems - Social History Smoking Status: Former smoker (Quit 15 years ago) Alcohol: reports: None Living Situation: Correction - Exam General Appearance: NAD General - other findings: cachectic, on face mask Eye: PERRL, anicteric sclera ENT: normocephalic atraumatic, no oropharyngeal lesions Neck: no JVD Heart: RRR, no murmur, no gallops Respiratory - other findings: diffusely diminished breath sounds Gastrointestinal: soft, non-tender, non-distended, normal bowel sounds, no hepatomegaly Extremities: no cyanosis, no clubbing, no edema Hospitalist Results - Labs Result Diagrams: 07/29/19 15:00 07/29/19 15:00 Lab results: WBC 14.7 thou/uL (4.8-10.8) H 07/29/19 15:00 Hgb 13.4 g/dL (12.0-16.0) 07/29/19 15:00 Hct 41.6 % (36.0-47.0) 07/29/19 15:00 MCV 87.8 fL (78.0-98.0) 07/29/19 15:00 Plt Count 214 thou/uL (130-400) 07/29/19 15:00 Neutrophils % 95.0 % (42.0-75.0) H 07/29/19 15:00 Sodium 138 mmol/L (136-145) 07/29/19 15:00 Potassium 4.5 mmol/L (3.5-5.1) 07/29/19 15:00 Chloride 99 mmol/L (98-107) 07/29/19 15:00 Carbon Dioxide 33 mmol/L (23-31) H 07/29/19 15:00 BUN 21 mg/dL (9.8-20.1) H 07/29/19 15:00 Creatinine 0.59 mg/dL (0.6-1.1) L 07/29/19 15:00 Glucose 218 mg/dL (83-110) H 07/29/19 15:00 Lactic Acid 1.5 mmol/L (0.5-2.2) 07/29/19 15:36 Calcium 9.0 mg/dL (7.8-10.44) 07/29/19 15:00 Total Bilirubin 0.5 mg/dL (0.2-1.2) 07/29/19 15:00 AST 40 U/L (5-34) H 07/29/19 15:00 ALT 41 U/L (8-55) 07/29/19 15:00 Alkaline Phosphatase 80 U/L (40-110) 07/29/19 15:00 CK-MB (CK-2) 7.3 ng/mL (0-6.6) H* 07/29/19 15:00 Troponin I 0.560 ng/mL (< 0.028) H* 07/29/19 15:00 Serum Total Protein 6.1 g/dL (6.0-8.3) 07/29/19 15:00 Albumin 4.2 g/dL (3.4-4.8) 07/29/19 15:00 - EKG Interpretation EKG: Sinus tachycardia, left atrial enlargement Hospitalist H&P A/P - Plan Plan: This is an 78 year old female with advanced COPD who presents back to the hospital with increasing shortness of breath #Acute hypoxic respiratory failure - possiby COPD exacerbation versus NSTEMI #Elevated troponin - she is not wheezing or coughing but has severe tachypnea. She has diffusely diminished breath sounds. I will start on IV steroids - continue her home breathing treatments - check an ABG - will send respiratory viral panel although low suspicion since no cough, sinus symptoms or myalgias - CKMB elevated and troponin up to 5, no EKG changes, but will place cardiology consult given persistent tachypnea. ECHO 07/11 was unremarkable, will repeat another - will place pulm consult tomorrow - will consider palliative care consultation as well due to frequent hospitalizations within the past one month Depression - continue sertraline GERD - continue famotidine 20 mg bid DVT prophylaxis: lovenox Code status: patient wants to be DNI, okay with BIPAP
[2019-07-29] MEDS ORDERED: ALPRAZolam 0.25 MG TAB PO PRN (19:05)
[2019-07-29] MEDS ORDERED: PROVENTIL INHALER 6.7 G (200 INHALATIONS) INH PRN (19:05)
[2019-07-29] MEDS ORDERED: Albuterol 200 PUFF (6.7GM INHALER) INH PRN (19:10)
[2019-07-29] MEDS ORDERED: methylPREDNISolone Sod Succ 40 MG VIAL IVP SCH (19:15)
[2019-07-29 19:45] LABS: CKMB 9.9 ng/mL (0-6.6)
[2019-07-29] MEDS ORDERED: Mometasone 200 MCG/Formoterol 5 MCG 120 PUFF INHALER INH SCH (20:00)
[2019-07-29] MEDS ORDERED: Enoxaparin Sodium 40 MG/0.4 ML SYRINGE ONE (20:06)
[2019-07-29] MEDS ORDERED: Albuterol Sulfate 1.25 MG/3 ML NEB NEB PRN (20:53)
[2019-07-29 21:07] LABS: Actual Bicarbonate (HCO3a) 25.1 mEq/L (22-28); Analyzer IN Cardio ER; Base Excess (BEa) -3.5 mEq/L (-2.0 to +3.0); Calcium, Ionized 1.13 mmol/L (1.12-1.30); Carboxyhemoglobin (COHb) 0.3 gm% (0.0-3.0); Hemoglobin (Hb) 12.8 g/dL (12.0-16.0); O2 Tension (PaO2) 96.6 mmHg (> 60.0); Potassium - ABG Lab 4.09 mmol/L (3.70-5.30)
[2019-07-29 21:20] LABS: pH, Arterial 7.23 (7.35-7.45)
[2019-07-29 21:21] LABS: ALV-art Gradient 111.725 (0-20); CO2 Tension 61.5 mmHg (35.0-45.0); Puncture Site R RADIAL
[2019-07-29 22:19] VITALS: BP 141/88
--- NOTE | 2019-07-29 22:31 | CT ---
CT ANGIOGRAM THORAX WITH CONTRAST: (CTA pulmonary angiogram) DATE: 07/29/2019 HISTORY: 78-year-old female with tachypnea and dyspnea. Dr. Steel reported the pulmonary embolism by telephone to nurse Sandra Del Cid in telemetry at 10:22 P M 07/29/2019. She was instructed to notify the attending physician. COMPARISON: 03/17/2019 TECHNIQUE: IV injection of iodinated contrast. Scan acquisition timing attempted to coincide with iodinated contrast bolus reaching maximal density in pulmonary arteries. 3-D MIP reconstructions. FINDINGS: There is thrombus in the main right upper lobe pulmonary artery and many of its branches, including a nterior segmental branch and apical branch. 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 There is thrombus in both of those branches. The apical posterior segmental artery branch thrombus actually ex tends into the left main pulmonary artery a short distance. Small amount of thrombus identified in segmental branch of left lower lobe pulmonary artery. Whereas previously, the trachea was widely patent. It is now moderately narrowed by deep invaginatio n of its posterior wall by an air-filled but not significantly dilated esophagus. Furthermore, the right mainstem bronchus is also collapsed and narrowed to a greater degree than previously. No consolidation, pulmonary edema, pleural effusion, or pneumothorax. No thoracic aortic aneurysm or dissection. Multiple compression fractures of the thoracic spine of indeterminate ages. At least most of them are probably old, but an acute one would be difficult to rule out. No cardiomegaly or pericardial effusion. IMPRESSION: 1. Positive for pulmonary thromboembolism, mostly in the bilateral upper upper lobe pulmonary arterie s and branches, plus some in peripheral subsegmental branches of left lower lobe pulmonary artery. 2. 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 3. Multiple compression fractures of the thoracic spine, at least most of them old
--- NOTE | 2019-07-29 22:33 | PDOC.EVN ---
Event Note - Event Note Event Note: Notified by RN, CTA results show bilateral PEs. Patient short of breath. I have discontinued order for DVT prophylaxis, patient given Lovenox 1 mg/kg in ED, I have ordered Lovenox 1 mg /kg BID. Dr. Conroy aware and will evaluate patient to ensure does not need to be moved to IMCU. Per nurse, she is familiar with patient and she appears ill in comparison to previous visits. Repeat ABG ordered. Patient seen by Dr. Conroy, she will be moved to IMCU.
[2019-07-29] MEDS: Famotidine 20 MG TAB PO SCH (22:41)
[2019-07-29 22:44] LABS: Troponin I 0.969 ng/mL (< 0.028)
[2019-07-29] MEDS: methylPREDNISolone Sod Succ 40 MG VIAL IVP SCH (23:19)
[2019-07-30] MEDS: Ipratropium Bromide 2.5 ml Neb NEB SCH ×4 (00:18→18:27)
[2019-07-30 00:28] LABS: Actual Bicarbonate (HCO3a) 27.7 mEq/L (22-28); Base Excess (BEa) -0.4 mEq/L (-2.0 to +3.0); Calcium, Ionized 1.18 mmol/L (1.12-1.30); Carboxyhemoglobin (COHb) 0.6 gm% (0.0-3.0); Hemoglobin (Hb) 12.6 g/dL (12.0-16.0); O2 Tension (PaO2) 242.1 mmHg (> 60.0); Potassium - ABG Lab 4.13 mmol/L (3.70-5.30); pH, Arterial 7.27 (7.35-7.45)
[2019-07-30 00:49] LABS: CO2 Tension 62.1 mmHg (35.0-45.0); Puncture Site LBA
[2019-07-30 00:50] LABS: ALV-art Gradient -63.045 (0-20)
[2019-07-30] MEDS: methylPREDNISolone Sod Succ 40 MG VIAL IVP SCH ×3 (06:16→17:09)
[2019-07-30] MEDS: Mometasone 200 MCG/Formoterol 5 MCG 120 PUFF INHALER INH SCH ×2 (06:45→18:26)
[2019-07-30] MEDS ORDERED: Enoxaparin Sodium 30 MG/0.3 ML SYRINGE SC SCH (09:00)
[2019-07-30 09:44] LABS: Hemoglobin 11.9 g/dL (12.0-16.0); Mean Corpuscular HGB CONC 32.4 g/dL (32.0-36.0); Mean Corpuscular Hemoglobin 28.3 pg (27.0-31.0); Mean Corpuscular Volume 87.4 fL (78.0-98.0); Mean Platelet Volume 9.6 fL (7.4-10.4); Platelet Count 138 thou/uL (130-400); RBC Distribution Width 13.4 % (11.5-14.5); White Blood Cell (WBC) Count 7.9 thou/uL (4.8-10.8)
[2019-07-30 10:00] LABS: Anion Gap 10 mmol/L (10-20); BUN (Urea Nitrogen) 21 mg/dL (9.8-20.1); Calc. Creatinine Clearance 60 mL/min (70-130); Calcium 8.2 mg/dL (7.8-10.44); Carbon Dioxide 29 mmol/L (23-31); Chloride 103 mmol/L (98-107); Estimated GFR-MDRD Greater than 90; Glucose 120 mg/dL (83-110); Potassium 4.1 mmol/L (3.5-5.1); Sodium 138 mmol/L (136-145)
--- NOTE | 2019-07-30 10:20 | CON ---
DATE OF CONSULTATION: 07/30/2019 This is 50 minutes of time, of that time greater than 50% was spent with the patient and/or the patient's unit in the hospital. HISTORY OF PRESENT ILLNESS: An 78-year-old female, who presented yesterday with recurrent and increased shortness of breath. She has been found to have bilateral upper lobe pulmonary thromboemboli. She also has end-stage COPD. She was most recently in a [facility]. She says she did not receive her treatments there as she wanted them. She also has a lot of anxiety issues. PAST MEDICAL HISTORY: 1. Severe end-stage COPD. 2. Multiple episodes of respiratory failure. PAST SURGICAL HISTORY: Hysterectomy. SOCIAL HISTORY: Quit smoking many years ago. Does not consume alcohol. ALLERGIES: LEVAQUIN. MEDICATIONS: Prior to admission, 1. DuoNeb. 2. Pepcid. 3. Symbicort. 4. ProAir. 5. Xanax. 6. Ventolin. 7. Prednisone. 8. Incruse Ellipta. 9. Zoloft. REVIEW OF SYSTEMS: Remarkable for failure to thrive, shortness of breath, anxiety. No fever, chills, nausea, vomiting. PHYSICAL EXAMINATION: VITAL SIGNS: Temperature 98.4, pulse 109, blood pressure 150/104, respiratory rate 29, O2 saturation 100%. GENERAL: She is awake, alert, in no acute distress. HEENT: Bitemporal wasting present. Oropharynx clear. NECK: No adenopathy or JVD. LUNGS: Clear anteriorly. CARDIOVASCULAR: S1, S2, regular without murmur. ABDOMEN: Soft, nontender. EXTREMITIES: No clubbing, cyanosis, or edema. LABORATORY DATA: White cell count 14.7, hematocrit 41.6, and platelet count 214. PH was 7.27, pCO2 of 62, PO2 of 242, that was on nasal cannula. Sodium 130, potassium 4.5, chloride 99, CO2 of 33, BUN 21, creatinine 0.6, and glucose 219. Troponin 0.9. ASSESSMENT: 1. Pulmonary thromboembolism. 2. End-stage chronic obstructive pulmonary disease. 3. Chronic hypoxic and hypercapnic respiratory failure. PLAN: The patient is currently on azithromycin and methylprednisolone for her COPD. She will continue nebulizer treatments every 4 hours. She is being anticoagulated 1 mg/kg with enoxaparin. Unfortunately, I do not think her symptoms are probably from pulmonary embolism, rather I think this is probably from her COPD. I think the finding of pulmonary embolism is just a red montalvo in all this. The patient's prognosis is quite poor. We will follow with you. Job ID: [id number]
[2019-07-30] MEDS: Azithromycin 500 MG in Sodium Chloride 0.9% 250 ML 250 ML IVPB SCH (10:30)
[2019-07-30] MEDS: Famotidine 20 MG TAB PO SCH ×2 (10:36→20:18)
[2019-07-30] MEDS: Enoxaparin Sodium 40 MG/0.4 ML SYRINGE SC SCH ×2 (10:37→20:18)
[2019-07-30 11:28] LABS: CKMB 13.8 ng/mL (0-6.6)
--- NOTE | 2019-07-30 13:06 | PDOC.HOSPP ---
- Subjective Encounter Date: 07/30/19 Encounter Time: 13:05 Subjective: The patient still has shortness of breath, not improved significantly. Has bilateral PE. NO cough, fevers, chills, no chest pain Patient had hypercapnea on ABG. She did not like the BIPAP in the hospital and is waiting for them to bring it from home. - Objective Vital Signs & Weight: Vital Signs (12 hours) Temp Pulse Resp Pulse Ox 07/30/19 12:00 97.8 F 07/30/19 07:54 97 07/30/19 07:37 98.4 F 07/30/19 06:45 99 28 H 07/30/19 03:33 97.8 F 07/30/19 01:46 96 Weight Admit Weight 88 lb 4.8 oz Weight 88 lb 1.6 oz Most Recent Monitor Data Heart Rate from ECG 109 NIBP 150/104 NIBP BP-Mean 119 Respiration from ECG 29 SpO2 100 I&O: 07/29/19 07/30/19 07/31/19 06:59 06:59 06:59 Intake Total 120 Balance 120 Result Diagrams: 07/30/19 09:22 07/30/19 09:22 Hospitalist ROS - Review of Systems Constitutional: denies: fever, chills Respiratory: denies: cough, dry, pleuritic pain - Medication Medications: Active Medications Generic Name Dose Route Start Last Admin Trade Name Freq PRN Reason Stop Dose Admin Enoxaparin Sodium 40 mg 07/30/19 09:00 07/30/19 10:37 Lovenox SC 40 mg 0900,2100 JANENE Administration Famotidine 20 mg 07/29/19 21:00 07/30/19 10:36 Pepcid PO 20 mg BID JANENE Administration Azithromycin 500 mg/ Sodium 250 mls @ 250 mls/hr 07/30/19 07:00 07/30/19 10: 30 Chloride IVPB 250 mls 0700 JANENE Administration Ipratropium [place] 2.5 ml 07/30/19 01:00 07/30/19 06:45 Atrovent NEB 2.5 ml [id number] JANENE Administration Methylprednisolone Sodium Succinate 40 mg 07/29/19 23:59 07/30/19 12:49 Solu-Medrol IVP 40 mg Q6HR JANENE Administration Mometasone Furoate/Formoterol Fumar 2 puff 07/30/19 06:30 07/30/19 06:45 Dulera 200 Mcg/5 Mcg Inhaler INH 2 puff BID-RT JANENE Administration Sertraline HCl 25 mg 07/29/19 21:00 07/29/19 22:41 Zoloft PO 25 mg HS JANENE Administration - Exam General Appearance: NAD, awake alert Eye: PERRL, anicteric sclera ENT: normocephalic atraumatic, no oropharyngeal lesions Neck: supple, symmetric, no JVD Heart: RRR, no murmur, no gallops, no rubs Respiratory - other findings: diminished breath sounds diffusely Gastrointestinal: soft, non-tender, non-distended, normal bowel sounds Extremities: no cyanosis, no clubbing, no edema Skin: normal turgor, no lesions, no rashes Neurological: cranial nerve grossly intact, normal sensation to touch, no focal deficits, no new deficit Hosp A/P - Plan CTA: positive for PE in the bilateral upper lobe pulmonary arteries and some in the peripheral subsegmental branches of left lower lobe pulmonary artery. 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 Multiple compression fractures of the thoracic spine. This is an 78 year old female with advanced COPD who presents back to the hospital with increasing shortness of breath #Acute hypoxic respiratory failure - possiby COPD exacerbation versus bilateral PE vs NSTEMI #Elevated troponin #Tracheobronchomalacia - continue IV steroids and breathing treatments - awaiting for her home BIPAP to arrive. Repeat ABG afterwards - respiratory viral panel negative - troponin peaked at 0.9. CKMB still trending up. ECHO pending. Cardiology consult pending - CTA showed bilateral PE, she is on therapeutic lovenox. Possibly switch to eliquis tomorrow - pulmonary consult for severe COPD Multiple thoracic compression fractures - tylenol prn Depression - continue sertraline GERD - continue famotidine 20 mg bid
--- NOTE | 2019-07-30 16:55 | CON ---
DATE OF CONSULTATION: 07/30/2019 REASON FOR CONSULTATION: Positive troponins. HISTORY OF PRESENT ILLNESS: Ms. Paredes is a very pleasant 78-year-old white female, very well known to myself, who comes to the hospital for increased shortness of breath. She was admitted recently for COPD exacerbation and pneumonia. She was in rehab and had to come back as she had worsening shortness of breath. She was admitted and found to have bilateral pulmonary embolisms and admitted for further pulmonary toilet as she was also in a COPD exacerbation. During her admission, troponins were drawn, they were positive so Cardiology has been consulted for this. Ms. Paredes denies any chest pain, tightness, or pressure, only her shortness of breath, which she has had before. PAST MEDICAL HISTORY: 1. End-stage COPD. 2. Anxiety and depression. PAST SURGICAL HISTORY: Hysterectomy. OUTPATIENT MEDICATIONS: 1. Prednisone 10 mg a day. 2. Symbicort. 3. DuoNeb. 4. Breo Ellipta. 5. Zoloft. 6. Famotidine. 7. Xanax p.r.n. 8. Incruse Ellipta. ALLERGIES: CIPRO AND LEVOFLOXACIN. SOCIAL HISTORY: Former smoker, quit several years back. No alcohol or drugs. FAMILY HISTORY: Noncontributory. Father of a ruptured aneurysm at age 71. REVIEW OF SYSTEMS: A 12-point review of systems was done and was all negative unless stated in the history of present illness. PHYSICAL EXAMINATION: VITAL SIGNS: Temperature 99.0, pulse 94, respiratory rate 23, saturating 100% on 2 L nasal cannula, blood pressure 143/93. GENERAL: Awake, alert, and oriented x3, in mild respiratory distress. HEENT: Normocephalic atraumatic. NECK: Supple. LUNGS: Have reduced breath sounds. CARDIOVASCULAR: Distant sounds but S1, S2. ABDOMEN: Soft. Positive bowel sounds. EXTREMITIES: No edema. SKIN: Warm and dry. LABORATORY DATA: Laboratory work was reviewed. White count of 14 down to 7, hemoglobin of 13 down to 11, hematocrit of 37, platelet count of 138. ABG was reviewed. Chemistries were reviewed. Troponin went from 0.5 to 0.9 to 0.9, then down to 0.8, CK-MB of 13.8. CT of the chest was reviewed. Multiple pulmonary embolisms. ASSESSMENT: 1. [id number] myocardial infarction, likely type 2 demand type of ischemia secondary to acute pulmonary embolism. 2. Acute pulmonary embolism. 3. End-stage chronic obstructive pulmonary disease. PLAN: 1. Full anticoagulation for pulmonary embolism and non-STEMI. More than likely this troponin leak is related to RV strain from acute PEs and her history of COPD. 2. No indication for heart catheterization at this time. Continue current regimen for now. 3. We will repeat an echocardiogram to make sure it is similar to the one that was done just about 3 weeks ago. 4. Thank you for letting us to participate in the care of your patient. We will continue to follow. Thirty five minutes of critical care. Job ID: [id number] MTDD
[2019-07-31] MEDS: methylPREDNISolone Sod Succ 40 MG VIAL IVP SCH ×5 (00:11→22:50)
[2019-07-31] MEDS: Ipratropium Bromide 2.5 ml Neb NEB SCH ×4 (02:22→18:15)
[2019-07-31 03:31] LABS: Hemoglobin 12.9 g/dL (12.0-16.0); Mean Corpuscular HGB CONC 32.3 g/dL (32.0-36.0); Mean Corpuscular Hemoglobin 28.2 pg (27.0-31.0); Mean Corpuscular Volume 87.3 fL (78.0-98.0); Mean Platelet Volume 9.4 fL (7.4-10.4); Platelet Count 163 thou/uL (130-400); RBC Distribution Width 13.4 % (11.5-14.5); Red Blood Cell (RBC) Count 4.57 mill/uL (4.20-5.40); White Blood Cell (WBC) Count 7.5 thou/uL (4.8-10.8)
[2019-07-31 04:25] LABS: Anion Gap 13 mmol/L (10-20); BUN (Urea Nitrogen) 23 mg/dL (9.8-20.1); Calc. Creatinine Clearance 52 mL/min (70-130); Calcium 8.8 mg/dL (7.8-10.44); Carbon Dioxide 32 mmol/L (23-31); Chloride 98 mmol/L (98-107); Estimated GFR-MDRD Greater than 90; Glucose 125 mg/dL (83-110); Potassium 3.9 mmol/L (3.5-5.1); Sodium 139 mmol/L (136-145)
[2019-07-31] MEDS: Mometasone 200 MCG/Formoterol 5 MCG 120 PUFF INHALER INH SCH ×2 (06:42→18:23)
[2019-07-31] MEDS: Enoxaparin Sodium 40 MG/0.4 ML SYRINGE SC SCH ×2 (09:08→21:11)
[2019-07-31] MEDS: Famotidine 20 MG TAB PO SCH ×2 (09:08→21:11)
[2019-07-31] MEDS: Azithromycin 250 MG in Sodium Chloride 0.9% 250 ML 250 ML IVPB SCH (09:09)
--- NOTE | 2019-07-31 10:03 | PRG ---
DATE OF SERVICE: 07/31/2019 SUBJECTIVE: She appears comfortable. She is wearing her trilogy ventilator. She has no acute complaints. OBJECTIVE: VITAL SIGNS: Temperature 98.0, pulse 117, blood pressure 177/99, and O2 saturation 100%. HEENT: Unremarkable. NECK: No adenopathy or JVD. LUNGS: Clear but distant. CARDIAC: S1 and S2, regular. ABDOMEN: Soft. EXTREMITIES: No edema, severe muscle wasting present. LABORATORY DATA: White cell count 7.5, hematocrit 39.9, and platelet count 163. Sodium 139, potassium 3.9, chloride 98, CO2 of 32, BUN 23, creatinine 0.5, glucose 125. ASSESSMENT: 1. End-stage chronic obstructive pulmonary disease with chronic hypoxic and hypercapnic respiratory failure. 2. pulmonary embolism, which is probably not the reason for her current decompensation. PLAN: 1. I will reinstitute her DNAR. I discussed this with the patient. 2. Continue steroids, but reduced dose. 3. Continue trilogy ventilator as needed. 4. Continue anticoagulation. From my standpoint, she can be changed to a novel anticoagulant at anytime. 5. Need to probably push toward hospice type care. Job ID: [id number]
[2019-07-31 10:40] LABS: CKMB 10.2 ng/mL (0-6.6)
--- NOTE | 2019-07-31 11:02 | PDOC.HOSPP ---
- Subjective Encounter Date: 07/31/19 Encounter Time: 11:01 Subjective: The patient states she coughed for the first time today it was a dry cough. She had heart rate in the 140's this morning. Nurse gave xanax, heart rate now 104. Patient insists that it is not anxiety and her heart rate is high because she can't breathe. She states her heart rate is always elevated after receiving breathing treatments and then it goes away eventually . The patient says if she has a heart attack, let her go and do not save her. However if she has a different problem other than a heart problem she would like to be saved. She would like to continue antibiotics. - Objective Vital Signs & Weight: Vital Signs (12 hours) Temp Pulse Resp Pulse Ox 07/31/19 07:30 99 07/31/19 07:12 98.0 F 07/31/19 06:40 99 25 H 94 L 07/31/19 03:32 98.2 F 07/31/19 01:48 93 24 H 94 L 07/30/19 23:28 97.6 F Weight Admit Weight 88 lb 4.8 oz Weight 90 lb 11.2 oz Most Recent Monitor Data Heart Rate from ECG 117 NIBP 157/99 NIBP BP-Mean 118 Respiration from ECG 25 SpO2 100 I&O: 07/30/19 07/31/19 08/01/19 06:59 06:59 06:59 Intake Total 120 440 Output Total 715 Balance 120 -275 Result Diagrams: 07/31/19 03:18 07/31/19 03:18 Hospitalist ROS - Review of Systems Constitutional: denies: fever, chills - Medication Medications: Active Medications Generic Name Dose Route Start Last Admin Trade Name Freq PRN Reason Stop Dose Admin Albuterol/Ipratropium 3 ml 07/29/19 20:53 07/31/19 01:48 Duoneb EZPAP 3 ml [id number] PRN Administration SOB &/or Wheezing Alprazolam 0.125 mg 07/29/19 19:05 07/31/19 09:10 Xanax PO 0.125 mg TIDPRN PRN Administration Anxiety Enoxaparin Sodium 40 mg 07/30/19 09:00 07/31/19 09:08 Lovenox SC 40 mg 0900,2100 JANENE Administration Famotidine 20 mg 07/29/19 21:00 07/31/19 09:08 Pepcid PO 20 mg BID JANENE Administration Azithromycin 250 mg/ Sodium 250 mls @ 250 mls/hr 07/31/19 09:00 07/31/19 09: 09 Chloride IVPB 250 mls 0900 JANENE Administration Ipratropium [place] 2.5 ml 07/30/19 01:00 07/31/19 06:40 Atrovent NEB 2.5 ml [id number] JANENE Administration Mometasone Furoate/Formoterol Fumar 2 puff 07/30/19 06:30 07/31/19 06:42 Dulera 200 Mcg/5 Mcg Inhaler INH 2 puff BID-RT JANENE Administration Sertraline HCl 25 mg 07/29/19 21:00 07/30/19 20:18 Zoloft PO 25 mg HS JANENE Administration - Exam General Appearance: NAD, awake alert Eye: PERRL, anicteric sclera ENT: normocephalic atraumatic, no oropharyngeal lesions Neck: no JVD Heart: RRR, no murmur, no gallops, no rubs Respiratory: CTAB Respiratory - other findings: mild wheezing noted Gastrointestinal: soft, non-tender, non-distended Extremities: no cyanosis, no clubbing, no edema Hosp A/P - Plan CTA: positive for PE in the bilateral upper lobe pulmonary arteries and some in the peripheral subsegmental branches of left lower lobe pulmonary artery. 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 Multiple compression fractures of the thoracic spine. This is an 78 year old female with advanced COPD who presents back to the hospital with increasing shortness of breath #Acute hypoxic respiratory failure - possiby COPD exacerbation versus bilateral PE vs NSTEMI #Elevated troponin #Tracheobronchomalacia - IV steroids tapered to 20 mg IV q6 hours - continue home BIPAP, patient more comfortable with this - respiratory viral panel negative - troponin peaked at 0.9, CKMB now downtrending - CTA showed bilateral PE, she is on therapeutic lovenox. Continue for now, switch to eliquis if patient's heart rate better controlled - Dr. Bravo following - patient with guarded prognosis - patient made DNR today. Avoid xanax unless pt self reports anxiety to avoid respiratory decompensation Multiple thoracic compression fractures - tylenol prn Depression - continue sertraline GERD - continue famotidine 20 mg bid DVT prophylaxis: therapeutic lovenox Code status: DNR
[2019-07-31] MEDS: Azithromycin 500 MG in Sodium Chloride 0.9% 250 ML 250 ML IVPB SCH (12:11)
[2019-07-31] MEDS ORDERED: Morphine 2 MG/ML SYRINGE SLOW IVP PRN (15:09)
--- NOTE | 2019-07-31 15:19 | PDOC.PALCO ---
Palliative Care Consult - Consult Details Requesting Physician: Dr Montero Reason for Consult: goals of care, advance directives assistance Family Members Present: None - Pertinent HPI 78 year old female who has multiple hospital visits secondary to COPD exacerbations. [facility] resident, who was last in the hospital 07/22/2019 for pneumonia. Returned to [facility] for pumomnary rehab and had an onset of shortness of breath. Denies fever, chills, cough, sore throat. O2 dependent. In the emergency room identified to have respiratory failure, elevated troponin and was admitted for further evaluation and management. - Pertinent PMH COPD, Depression, GERD, HTN - Social History Smoking Status: Former smoker Smoking: quit greater than 1 year Alcohol Use: none Drug Use History: none Living Situation: [facility] resident - Medications MAR Reviewed: Yes - Allergies Allergies/Adverse Reactions: Allergies Allergy/AdvReac Type Severity Reaction Status Date / Time ciprofloxacin Allergy Verified 07/23/19 00:16 levofloxacin [From Levaquin] Allergy Verified 07/23/19 00:16 - Subjective Bipap, short of breath at rest. Denies complaints other than shortness of breath and weakness - ROS Constitutional: alert, weakness Eyes: other (denies visual changes) ENT: other (denies throat irritation, congestion) Respiratory: shortness of breath, shortness of breath with extertion Cardiology: other (negative for chest pain) Musculoskeletal: arthritis/arthralgias Neurological: other (denies headache, numbness) Skin: bruising Psychological: anxiety - Objective Vital Signs: Vital Signs - Most Recent Temp Pulse Resp BP Pulse Ox 97.9 F 113 H 21 H 141/88 H 100 07/31/19 11:17 07/31/19 13:40 07/31/19 13:40 07/29/19 22:18 07/31/19 13:40 Palliative Performance Scale: 30 - Physical Exam Constitutional: cachectic, emaciated, ill appearing, mild distress HEENT: EOMI, moist MMs, sclera anicteric Respiratory: accessory muscle use, labored respirations Cardiovascular: RRR Gastrointestinal: non-tender Musculoskeletal: no edema, diffuse muscle atrophy Neurology: moves all 4 limbs, no focal deficits Skin: cap refill <2 seconds, bruising, fragile Psychiatric: A&O x 3, normal mood - Problem List (1) Palliative care encounter Code(s): Z51.5 - ENCOUNTER FOR PALLIATIVE CARE Current Visit: Yes Status: Acute (2) Acute on chronic respiratory failure with hypoxemia Code(s): J96.21 - ACUTE AND CHRONIC RESPIRATORY FAILURE WITH HYPOXIA Current Visit: No Status: Acute (3) COPD exacerbation Code(s): J44.1 - CHRONIC OBSTRUCTIVE PULMONARY DISEASE W (ACUTE) EXACERBATION Current Visit: No Status: Acute (4) Adult failure to thrive Current Visit: No Status: Chronic (5) Depression Code(s): F32.9 - MAJOR DEPRESSIVE DISORDER, SINGLE EPISODE, UNSPECIFIED Current Visit: No Status: Chronic Qualifiers: Depression Type: major depressive disorder (6) Physical deconditioning Code(s): R53.81 - OTHER MALAISE Current Visit: No Status: Chronic - Plan/Recommendations Plan: Karlo Parsons RNscuba diver initiated contact with patient, please refer to her notes. Patient to have information session with [facility]. She has three children and her dog "Cornelia" is important to her. 1mg IVP Morphine for shortness of breath. Karlo Parsons RN also initiated paper work for [facility] [40] minutes spent on this encounter with >50% of the time in counseling and coordination of care. Thank you for this very appropriate consult.
--- NOTE | 2019-07-31 17:16 | PDOC.CPN ---
- Subjective Date: 07/31/19 Time: 17:14 Interval history: Still SOB. Mils improvement. She feels more comfortable with home BiPAP machine. - Review of Systems General: denies: fever/chills, weight/appetite/sleep changes, night sweats, fatigue Respiratory: reports: shortness of breath, exercise intolerance. denies: cough , congestion Cardiovascular: denies: chest pain, palpitation, edema, paroxysmal nocturnal dyspnea, orthopnea Gastrointestinal: denies: nausea, vomiting, diarrhea, constipation, abd pain, GI bleeding Musculoskeletal: denies: pain, tenderness, stiffness, swelling, arthritis/ arthralgias Neurological: reports: weakness. denies: numbness, syncope, seizure - Objective Allergies/Adverse Reactions: Allergies Allergy/AdvReac Type Severity Reaction Status Date / Time ciprofloxacin Allergy Verified 07/23/19 00:16 levofloxacin [From Levaquin] Allergy Verified 07/23/19 00:16 Visit Medications: Current Medications Albuterol Sulfate (Albuterol Sulfate) 1.25 mg NEB Q2H PRN PRN Reason: Wheezing Alprazolam (Xanax) 0.125 mg PO TIDPRN PRN PRN Reason: Anxiety Last Admin: 07/31/19 09:10 Dose: 0.125 mg Enoxaparin Sodium (Lovenox) 40 mg SC 0900,2100 [facility] Last Admin: 07/31/19 09:08 Dose: 40 mg Famotidine (Pepcid) 20 mg PO BID [facility] Last Admin: 07/31/19 09:08 Dose: 20 mg Azithromycin 250 mg/ Sodium (Chloride) 250 mls @ 250 mls/hr IVPB 0900 [facility] Last Admin: 07/31/19 09:09 Dose: 250 mls Ipratropium [place] (Atrovent) 2.5 ml NEB [id number] [facility] Last Admin: 07/31/19 13:40 Dose: 2.5 ml Methylprednisolone Sodium Succinate (Solu-Medrol) 20 mg IVP Q6H [facility] Last Admin: 07/31/19 16:19 Dose: 20 mg Mometasone Furoate/Formoterol Fumar (Dulera 200 Mcg/5 Mcg Inhaler) 2 puff INH BID-RT [facility] Last Admin: 07/31/19 06:42 Dose: 2 puff Morphine Sulfate (Morphine) 1 mg SLOW IVP Q4H PRN PRN Reason: Dyspnea/Wheezing/SOB Sertraline HCl (Zoloft) 25 mg PO HS JANENE Last Admin: 07/30/19 20:18 Dose: 25 mg Sodium Chloride (Flush - Normal Saline) 10 ml IVF Q12HR JANENE Sodium Chloride (Flush - Normal Saline) 10 ml IVF PRN PRN PRN Reason: Saline Flush Vital Signs & Weight: Vital Signs Temp Pulse Resp Pulse Ox 07/31/19 15:40 98.4 F 07/31/19 13:40 113 H 21 H 100 07/31/19 11:17 97.9 F 07/31/19 07:30 99 07/31/19 07:12 98.0 F 07/31/19 06:40 99 25 H 94 L Admit Weight 88 lb 4.8 oz Weight 90 lb 11.2 oz - Physical Exam General: alert & oriented x3 HEENT: mucus membranes moist Neck: supple neck Cardiac: regular rate and rhythm Lungs: decreased breath sounds Neuro: grossly intact Abdomen: active bowel sounds Extremities: no edema Skin: clear Musculoskeletal: no pain - Labs Result Diagrams: 07/31/19 03:18 07/31/19 03:18 Troponin/CKMB CK-MB (CK-2) 10.2 ng/mL (0-6.6) H* 07/31/19 09:42 Troponin I 0.687 ng/mL (< 0.028) H* 07/31/19 09:42 - Telemetry Sinus rhythms and dysrhythmias: sinus rhythm - Assessment/Plan Assessment/Plan: 1. Type 2 demand ischemia 2. Acute PE 3. End stage COPD with acute exacerbation. PLAN: - Conservative therapoy from cardiac standpoint. - Full anticoagulation for DVT/PE - May switch to Xarelto or Eliquis for DVT/PE treatment level dosage. - Will follow.
[2019-08-01] MEDS: Ipratropium Bromide 2.5 ml Neb NEB SCH ×5 (00:04→23:50)
[2019-08-01 03:59] LABS: Hemoglobin 11.4 g/dL (12.0-16.0); Mean Corpuscular HGB CONC 32.7 g/dL (32.0-36.0); Mean Corpuscular Hemoglobin 28.3 pg (27.0-31.0); Mean Corpuscular Volume 86.5 fL (78.0-98.0); Mean Platelet Volume 10.3 fL (7.4-10.4); Platelet Count 148 thou/uL (130-400); RBC Distribution Width 13.4 % (11.5-14.5); Red Blood Cell (RBC) Count 4.04 mill/uL (4.20-5.40); White Blood Cell (WBC) Count 9.1 thou/uL (4.8-10.8)
[2019-08-01] MEDS: methylPREDNISolone Sod Succ 40 MG VIAL IVP SCH ×2 (05:09→11:01)
[2019-08-01] MEDS: Mometasone 200 MCG/Formoterol 5 MCG 120 PUFF INHALER INH SCH ×2 (06:40→19:46)
[2019-08-01] MEDS: Famotidine 20 MG TAB PO SCH ×2 (08:59→20:47)
[2019-08-01] MEDS: Enoxaparin Sodium 40 MG/0.4 ML SYRINGE SC SCH (08:59)
[2019-08-01] MEDS: Azithromycin 250 MG in Sodium Chloride 0.9% 250 ML 250 ML IVPB SCH (08:59)
--- NOTE | 2019-08-01 10:22 | PRG ---
DATE OF SERVICE: 08/01/2019 SUBJECTIVE: Ms. Paredes tells me she has elected to go on hospice therapy. She is very comfortable with that decision. OBJECTIVE: VITAL SIGNS: Her temperature is 99, pulse 81, blood pressure 119/82. HEENT: Unremarkable. NECK: No adenopathy or JVD. LUNGS: Clear anteriorly. CARDIAC: S1 and S2, regular. ABDOMEN: Soft. EXTREMITIES: No edema. ASSESSMENT: End-stage chronic obstructive pulmonary disease. PLAN: 1. Agree with hospice care. 2. Can continue anticoagulation for the pulmonary embolism. Job ID: [id number]
[2019-08-01] MEDS ORDERED: Morphine 10 MG/0.5 ML ORAL SYRINGE SL PRN (12:02)
[2019-08-01 13:48] VITALS: BMI 15.9
--- NOTE | 2019-08-01 15:03 | PDOC.CPN ---
- Subjective Date: 08/01/19 Time: 15:02 Interval history: No new issues. She has elected Hospice care. - Objective Allergies/Adverse Reactions: Allergies Allergy/AdvReac Type Severity Reaction Status Date / Time ciprofloxacin Allergy Verified 07/23/19 00:16 levofloxacin [From Levaquin] Allergy Verified 07/23/19 00:16 Visit Medications: Current Medications Albuterol Sulfate (Albuterol Sulfate) 1.25 mg NEB Q2H PRN PRN Reason: Wheezing Alprazolam (Xanax) 0.125 mg PO TIDPRN PRN PRN Reason: Anxiety Last Admin: 07/31/19 09:10 Dose: 0.125 mg Enoxaparin Sodium (Lovenox) 40 mg SC 0900,2100 [facility] Last Admin: 08/01/19 08:59 Dose: 40 mg Famotidine (Pepcid) 20 mg PO BID [facility] Last Admin: 08/01/19 08:59 Dose: 20 mg Ipratropium [place] (Atrovent) 2.5 ml NEB [id number] [facility] Last Admin: 08/01/19 13:03 Dose: Not Given Mometasone Furoate/Formoterol Fumar (Dulera 200 Mcg/5 Mcg Inhaler) 2 puff INH BID-RT [facility] Last Admin: 08/01/19 06:40 Dose: 2 puff Morphine Sulfate (Morphine) 1 mg SLOW IVP Q4H PRN PRN Reason: Dyspnea/Wheezing/SOB Morphine Sulfate (Roxanol Solution) 10 mg SL Q2H PRN PRN Reason: Dyspnea/Wheezing/SOB Last Admin: 08/01/19 12:24 Dose: 10 mg Prednisone (Prednisone) 40 mg PO QAM-WM JANENE Sertraline HCl (Zoloft) 25 mg PO HS [facility] Last Admin: 07/31/19 21:11 Dose: 25 mg Sodium Chloride (Flush - Normal Saline) 10 ml IVF Q12HR [facility] Last Admin: 08/01/19 11:00 Dose: 10 ml Sodium Chloride (Flush - Normal Saline) 10 ml IVF PRN PRN PRN Reason: Saline Flush Vital Signs & Weight: Vital Signs Temp Pulse Resp Pulse Ox 08/01/19 11:23 98.4 F 08/01/19 07:29 99 08/01/19 07:20 99.0 F 08/01/19 06:43 98 08/01/19 06:42 82 20 98 08/01/19 06:40 82 20 98 08/01/19 04:00 98.8 F Admit Weight 88 lb 4.8 oz Weight 90 lb - Physical Exam General: no apparent distress HEENT: mucus membranes moist Neck: supple neck Cardiac: regular rate and rhythm Lungs: decreased breath sounds Neuro: grossly intact Abdomen: active bowel sounds Extremities: no edema Skin: clear Musculoskeletal: no pain - Labs Result Diagrams: 08/01/19 03:16 07/31/19 03:18 Troponin/CKMB CK-MB (CK-2) 10.2 ng/mL (0-6.6) H* 07/31/19 09:42 Troponin I 0.687 ng/mL (< 0.028) H* 07/31/19 09:42 - Telemetry Sinus rhythms and dysrhythmias: sinus rhythm - Assessment/Plan Assessment/Plan: 1. Type 2 demand ischemia 2. Acute PE 3. End stage COPD with acute exacerbation. PLAN: - Conservative therapy from cardiac standpoint. - Full anticoagulation for DVT/PE - Agree with hospice care. - Will sign off. Please call with any questions.
--- NOTE | 2019-08-01 15:11 | PDOC.HOSPP ---
- Subjective Encounter Date: 08/01/19 Encounter Time: 11:30 Subjective: The patient is extremely short of breath this morning even with the BIPAP. Hospice has evaluated her, requiring COVID testing prior to being accepted by hospice. Patient denies cough or fever The patient lost IV access this morning so medications switched to oral. She does not want another IV - Objective Vital Signs & Weight: Vital Signs (12 hours) Temp Pulse Resp Pulse Ox 08/01/19 11:23 98.4 F 08/01/19 07:29 99 08/01/19 07:20 99.0 F 08/01/19 06:43 98 08/01/19 06:42 82 20 98 08/01/19 06:40 82 20 98 08/01/19 04:00 98.8 F Weight Admit Weight 88 lb 4.8 oz Weight 90 lb Most Recent Monitor Data Heart Rate from ECG 90 NIBP 159/126 NIBP BP-Mean 137 Respiration from ECG 21 SpO2 100 I&O: 07/31/19 08/01/19 08/02/19 06:59 06:59 06:59 Intake Total 440 593 Output Total 715 700 Balance -275 -107 Result Diagrams: 08/01/19 03:16 07/31/19 03:18 Hospitalist ROS - Review of Systems Constitutional: denies: fever, chills Respiratory: denies: cough, dry - Medication Medications: Active Medications Generic Name Dose Route Start Last Admin Trade Name Freq PRN Reason Stop Dose Admin Alprazolam 0.125 mg 07/29/19 19:05 07/31/19 09:10 Xanax PO 0.125 mg TIDPRN PRN Administration Anxiety Enoxaparin Sodium 40 mg 07/30/19 09:00 08/01/19 08:59 Lovenox SC 40 mg 0900,2100 JANENE Administration Famotidine 20 mg 07/29/19 21:00 08/01/19 08:59 Pepcid PO 20 mg BID JANENE Administration Ipratropium [place] 2.5 ml 07/30/19 01:00 08/01/19 13:03 Atrovent NEB Not Given [id number] JANENE Mometasone Furoate/Formoterol Fumar 2 puff 07/30/19 06:30 08/01/19 06:40 Dulera 200 Mcg/5 Mcg Inhaler INH 2 puff BID-RT JANENE Administration Morphine Sulfate 10 mg 08/01/19 12:02 08/01/19 12:24 Roxanol Solution SL 10 mg Q2H PRN Administration Dyspnea/Wheezing/SOB Sertraline HCl 25 mg 07/29/19 21:00 07/31/19 21:11 Zoloft PO 25 mg HS JANENE Administration Sodium Chloride 10 ml 07/31/19 21:00 08/01/19 11:00 Flush - Normal Saline IVF 10 ml Q12HR JANENE Administration - Exam General Appearance: NAD, awake alert General - other findings: very cachectic Eye: PERRL, anicteric sclera ENT: normocephalic atraumatic, no oropharyngeal lesions Neck: no JVD Heart: RRR, no murmur, no gallops, no rubs Respiratory - other findings: diminished breath sounds diffusely Gastrointestinal: soft, non-tender, non-distended, normal bowel sounds Extremities: no cyanosis, no clubbing, no edema Skin: normal turgor, no lesions, no rashes Neurological: cranial nerve grossly intact, normal sensation to touch, no focal deficits, no new deficit Hosp A/P - Plan CTA: positive for PE in the bilateral upper lobe pulmonary arteries and some in the peripheral subsegmental branches of left lower lobe pulmonary artery. 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 Multiple compression fractures of the thoracic spine. This is an 78 year old female with advanced COPD who presents back to the hospital with increasing shortness of breath #Acute hypoxic respiratory failure - possiby COPD exacerbation versus bilateral PE vs NSTEMI #Elevated troponin #Tracheobronchomalacia - IV steroids tapered to oral. She is on BIPAP but still short of breath. Prognosis very guarded. Hospice was consulted and requiring COVID testing, sent and pending - respiratory viral panel negative - CKMB and troponin elevated but downtrending. Cardiology consulted, recommended conserative care - will switch from therapeutic lovenox to eliquis 10 mg bid Multiple thoracic compression fractures - tylenol prn Depression - continue sertraline GERD - continue famotidine 20 mg bid Dispo: hospice on discharger DVT prophylaxis: therapeutic lovenox Code status: DNR
--- NOTE | 2019-08-01 16:41 | PDOC.PALPN ---
Palliative Progress Note - Subjective Pronounced shortness of breath, Bipap. Anxious, labored respirations - Objective Vital Signs: Vital Signs - Most Recent Temp Pulse Resp BP Pulse Ox 98.5 F 82 20 141/88 H 99 08/01/19 15:13 08/01/19 06:42 08/01/19 06:42 07/29/19 22:18 08/01/19 07:29 - Physical Exam Constitutional: cachectic, ill appearing, mild distress HEENT: EOMI, moist MMs, sclera anicteric Respiratory: accessory muscle use, labored respirations Cardiovascular: RRR Gastrointestinal: non-tender, positive bowel sounds Genitourinary: continent Deviation from normal: [place] appearance to hands Neurology: moves all 4 limbs, no focal deficits Skin: bruising, fragile, friable Psychiatric: A&O x 3 Deviation from normal: anxious - Assessment (1) Palliative care encounter Code(s): Z51.5 - ENCOUNTER FOR PALLIATIVE CARE Current Visit: Yes Status: Acute (2) Acute on chronic respiratory failure with hypoxemia Code(s): J96.21 - ACUTE AND CHRONIC RESPIRATORY FAILURE WITH HYPOXIA Current Visit: No Status: Acute (3) COPD exacerbation Code(s): J44.1 - CHRONIC OBSTRUCTIVE PULMONARY DISEASE W (ACUTE) EXACERBATION Current Visit: No Status: Acute (4) Adult failure to thrive Current Visit: No Status: Chronic (5) Depression Code(s): F32.9 - MAJOR DEPRESSIVE DISORDER, SINGLE EPISODE, UNSPECIFIED Current Visit: No Status: Chronic Qualifiers: Depression Type: major depressive disorder (6) Physical deconditioning Code(s): R53.81 - OTHER MALAISE Current Visit: No Status: Chronic - Plan Plan: Ordered Roxanol for shortness of breath as patient no longer has IV access. Anxious and tearful, therapeutic listening and life review. Prayed with patient. [facility] to be evaluating patient for transition to either home or hospice at [facility] inpatient unit. Communicated with Dr Montero [40] minutes spent on this encounter with >50% of the time in counseling and coordination of care. - ROS Constitutional: alert, weakness Eyes: other (Denies visual changes) ENT: dry mouth, other (Denies difficulity swallowing, congestion) Respiratory: shortness of breath, shortness of breath with extertion Cardiology: other (denies chest pain) Skin: bruising Psychological: anxiety, depression
[2019-08-01] MEDS: Morphine 10 MG/0.5 ML ORAL SYRINGE SL PRN (17:52)
[2019-08-01] MEDS: Apixaban 5 MG TAB PO SCH (20:47)
[2019-08-02 03:25] LABS: Hemoglobin 12.1 g/dL (12.0-16.0); Platelet Count 161 thou/uL (130-400)
[2019-08-02 03:41] LABS: Calc. Creatinine Clearance 52 mL/min (70-130); Estimated GFR-MDRD Greater than 90
[2019-08-02] MEDS: Ipratropium Bromide 2.5 ml Neb NEB SCH ×3 (06:30→14:11)
[2019-08-02] MEDS: Mometasone 200 MCG/Formoterol 5 MCG 120 PUFF INHALER INH SCH (06:31)
[2019-08-02] MEDS ORDERED: predniSONE 20 MG TAB PO SCH (08:00)
--- NOTE | 2019-08-02 09:37 | PRG ---
DATE OF SERVICE: 08/02/2019 SUBJECTIVE: The patient is doing well compared to yesterday. She says she did not use a Trilogy ventilator during the day, but did use it last night. She is off the Trilogy this morning. OBJECTIVE: VITAL SIGNS: Temperature 97.8, pulse 87, blood pressure 118/71, and O2 sat 100% HEENT: Unremarkable. NECK: No adenopathy or JVD. LUNGS: Clear, but distant breath sounds. CARDIAC: S1 and S2, regular. ABDOMEN: Soft. EXTREMITIES: Severe muscle wasting without edema. ASSESSMENT: End-stage chronic obstructive pulmonary disease with chronic hypoxic and hypercapnic respiratory failure. PLAN: The patient is awaiting placement. There is a consideration for hospice care. I appreciate the input from Case Management and palliative care concerning this patient. Job ID: [id number]
[2019-08-02] MEDS: Famotidine 20 MG TAB PO SCH (10:21)
[2019-08-02] MEDS: Morphine 10 MG/0.5 ML ORAL SYRINGE SL PRN (10:21)
[2019-08-02] MEDS: Apixaban 5 MG TAB PO SCH (10:21)
[2019-08-02 11:08] VITALS: TEMP 98
--- NOTE | 2019-08-02 13:59 | DIS ---
DATE OF ADMISSION: 07/29/2019 DATE OF DISCHARGE: 08/02/2019 DISCHARGE DIAGNOSES: 1. Acute hypoxic respiratory failure secondary to pulmonary embolism, [id number] myocardial infarction, chronic obstructive pulmonary disease exacerbation. 2. Tracheobronchomalacia. 3. Multiple thoracic compression fractures. SECONDARY DISCHARGE DIAGNOSES: Depression, gastroesophageal reflux disease. CONSULTATIONS: 1. Pulmonology with Dr. Janusz Bravo. 2. Cardiology with Dr. Alex Shaw. PROCEDURES: None. BRIEF HISTORY OF PRESENT ILLNESS: This is an 78-year-old female with past medical history of advanced COPD, who was sent from her group home due to persistent shortness of breath. The patient stated she had persistent shortness of breath with minimal movement. She denies fevers, chills, cough, runny nose, sore throat, or myalgias. She denies being any contact with any other patients. She was at [facility] prior to admission. Upon presentation in the emergency room, the patient was saturating 98% on 6 L nasal cannula. However, she was very tachypneic and was placed on non-rebreather. She had a blood gas, which showed a pH of 7.27 and a pCO2 of 61.3. She was initially admitted to the floor, however, transferred to the [facility] for BiPAP. HOSPITAL COURSE: Acute hypoxic respiratory failure secondary to COPD exacerbation, bilateral pulmonary embolism versus NSTEMI: The patient was started on empiric IV steroids and azithromycin. She was also getting scheduled breathing treatments. She had a CTA which showed bilateral pulmonary embolism and was started on IV lovenox. She did have troponins trended with her troponin up to 0.969 and her CK-MB up to 13.8. Cardiology was consulted, and they recommended conservative management and thought this was due to heart strain from her pulmonary embolism. Repeat echocardiogram done on the showed mild to moderate aortic regurg, EF of 60% to 65% and no wall motion abnormalities. The patient continued to do poorly with severe tachypnea and tachycardia with heart rate in the 140's at times. She was seen by palliative care and made a DNR/DNI. Patient elected to proceed with hospice. On discharge she was transitioned to her oral prednisone dose of 40 mg daily. She was switched to eliquis for anticoagulation and should take 10 mg bid until 08/07, then 5 mg bid after. She was resumed on all of her home inhalers as recommended by pulmonary. Multiple compression fractures: On her CTA, she is known to have multiple thoracic compression fractures. Continue pain medications p.r.n. DISCHARGE PHYSICAL EXAMINATION: VITAL SIGNS: Temperature 98.0, heart rate 72, respiratory rate 16, O2 saturation 98% on 2 L nasal cannula, and blood pressure 141/88. GENERAL: The patient is very cachectic and malnourished with a BMI of 16. CVS: Regular rate and rhythm with no murmurs, rubs, or gallops. LUNGS: Clear to auscultation bilaterally with improved air entry. ABDOMEN: Positive bowel sounds, soft, nontender, nondistended. EXTREMITIES: No edema. LABORATORY DATA: CBC on 08/01: Hemoglobin 12.1, hematocrit 38.0. White blood cell count was 9.1 on 07/31. BMP on 07/30: Was unremarkable except for mild CO2 elevation of 32. Troponin I: 0.969, 0.862, and 0.687. CK-MB: Peaked at 13.8, came down to 10.2. IMAGING: CTA thorax on 07/28: Pulmonary thromboembolism, mostly in the bilateral upper lobe pulmonary arteries and branches and some in the peripheral subsegmental branches of the left lower lobe pulmonary artery. 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 Multiple compression fractures of the thoracic spine, at least most of them were old. Chest x-ray on 07/28: No acute findings or significant interval change. Echo on 07/30: EF 60% to 65%, grade 1/3 diastolic dysfunction. Mild-to- moderate MR, mild TR, mild RI, right ventricular systolic pressure at 35 mmHg. DISPOSITION: Home with hospice. ACTIVITY: As tolerated. DIET: Heart-healthy diet. DISCHARGE INSTRUCTIONS: The patient should consider follow up with her PCP and Dr. Bravo within a week. She will be discharged with home hospice. She was started on Eliquis for pulmonary embolism. DISCHARGE MEDICATIONS: New prescriptions: 1. Eliquis 10 mg p.o. b.i.d. until August 07, then 5 mg b.i.d. thereafter. 2. Azithromycin 250 mg for one more day All other home medications were resumed. Job ID: [id number] [facility]
--- NOTE | 2019-08-02 14:49 | EKG ---
Test Reason : Blood Pressure : / mmHG Vent. Rate : 127 BPM Atrial Rate : 127 BPM P-R Int : 128 ms QRS Dur : 086 ms QT Int : 318 ms P-R-T Axes : 096 068 087 degrees QTc Int : 462 ms Sinus tachycardia Possible Left atrial enlargement Motion artifact Confirmed by HILLARY LIRIANO DO ([id number]), editor book JAMISON FIELDS ([id number]) on 08/02/2019 2:49:13 PM Referred By: Confirmed By:HILLARY LIRIANO DO
[2019-08-09] MEDS ORDERED: Apixaban 5 MG TAB PO SCH (09:00)
== END 2019-08-02 14:15 | disposition hospice, home (50) | DRG 175 ==
LOC: ERS 14:30 → 2NO 18:07 → IMCU/EMU 21:52
PROVIDERS: ADMIT Internal Medicine; ATTEND Internal Medicine
PROC: 5A09357 Assistance with Respiratory Ventilation, Less than 24 Consecutive Hours, Continuous Positive Airway Pressure (ICD-10-PCS; principal; 2019-07-31)
DX: I26.99 Other pulmonary embolism without acute cor pulmonale (principal); J96.01 Acute respiratory failure with hypoxia; I21.A1 Myocardial infarction type 2; M48.54XA Collapsed vertebra, not elsewhere classified, thoracic region, initial encounter for fracture; J44.1 Chronic obstructive pulmonary disease with (acute) exacerbation; Z68.1 Body mass index [BMI] 19.9 or less, adult; Z51.5 Encounter for palliative care; Z66 Do not resuscitate; F32.9 Major depressive disorder, single episode, unspecified; K21.9 Gastro-esophageal reflux disease without esophagitis; J98.09 Other diseases of bronchus, not elsewhere classified; F41.9 Anxiety disorder, unspecified; J39.8 Other specified diseases of upper respiratory tract; R53.81 Other malaise; R62.7 Adult failure to thrive; I08.1 Rheumatic disorders of both mitral and tricuspid valves; Z90.710 Acquired absence of both cervix and uterus; Z87.891 Personal history of nicotine dependence; Z88.1 Allergy status to other antibiotic agents
CPT/HCPCS: 36415; 71045; 71275; 80048; 80053; 82553; 82565; 82805; 83605; 84484; 85014; 85018; 85025; 85027; 85049; 87040; 87633; 87798; 93005; 93010; 93306; 94640; 94660; 96361; 96365; 96367; 96372; 96375; J0456; J0692; J1650; J2920; J3370; J3475; J3490; J7050; J7512; J7611; J7620; Q9967